=== PATIENT | female | born 1950 | race Caucasian/White ===

== ENCOUNTER 2016-10-08 12:33 | Outpatient (CLI) | payer MEDICARE, OTHER | END 2016-10-08 12:34 | disposition home or self-care (01) | DX: Z01.818 Encounter for other preprocedural examination (principal); M06.9 Rheumatoid arthritis, unspecified; M24.072 Loose body in left ankle ==

== ENCOUNTER 2016-10-15 08:00 | Outpatient (CLI) | payer MEDICARE, OTHER | END 2016-10-15 08:01 | disposition home or self-care (01) | DX: Z79.899 Other long term (current) drug therapy (principal) ==

== ENCOUNTER 2016-10-18 10:17 | Outpatient (CLI) | payer MEDICARE, OTHER | END 2016-10-18 10:18 | disposition home or self-care (01) | DX: Z01.818 Encounter for other preprocedural examination (principal); M06.9 Rheumatoid arthritis, unspecified ==

== ENCOUNTER 2016-11-20 12:52 | Outpatient (CLI) | payer MEDICARE, OTHER | END 2016-11-20 12:53 | disposition home or self-care (01) | DX: M05.79 Rheumatoid arthritis with rheumatoid factor of multiple sites without organ or systems involvement (principal) ==

== ENCOUNTER 2016-12-06 09:08 | Outpatient (CLI) | payer MEDICARE, OTHER | END 2016-12-06 09:09 | disposition home or self-care (01) | DX: Z79.899 Other long term (current) drug therapy (principal) ==

== ENCOUNTER 2017-02-10 07:16 | Outpatient (CLI) | payer MEDICARE, OTHER ==
[2017-02-10 12:45] LABS: HEMOGLOBIN A1C 0.44 g/dL
[2017-02-10 12:51] LABS: ALBUMIN/GLOBULIN RATIO 1.5 (1.0-2.2); BILIRUBIN,TOTAL 0.6 mg/dL (0.2-1.0); BUN - BLOOD UREA NITROGEN 17 mg/dL (6-20); CALCIUM 9.5 mg/dL (8.5-10.3); CARBON DIOXIDE - CO2 24 mmol/L (21-32); CHLORIDE 105 mmol/L (101-111); CHOL/HDL RATIO 3.2 (<4.4); CHOLESTEROL 171 mg/dL; CREATININE 0.9 mg/dL (0.4-1.0); GFR - MDRD 63 (>89); GLUCOSE 111 mg/dL (70-100); HDL CHOLESTEROL 53 mg/dL; LDL/HDL RATIO 1.7 (<4.4); POTASSIUM 4.1 mmol/L (3.5-5.0); SODIUM 139 mmol/L (135-145); TOTAL PROTEIN 7.6 g/dL (6.7-8.2); TRIGLYCERIDES 133 mg/dL; VLDL CHOLESTEROL 27 mg/dL
== END 2017-02-10 07:17 | disposition home or self-care (01) ==
LOC: LAB.WCP 07:16
PROVIDERS: ATTEND Family Medicine
DX: E78.5 Hyperlipidemia, unspecified (principal); E11.9 Type 2 diabetes mellitus without complications; I10 Essential (primary) hypertension
CPT/HCPCS: 36415; 80053; 80061; 83036

== ENCOUNTER 2017-08-26 14:40 | Outpatient (CLI) | payer MEDICARE, OTHER ==
[2017-08-26 12:35] LABS: BASOPHILS % (AUTO) 0.5 %; EOSINOPHILS # (AUTO) 0.2 10^3/uL (0.0-0.7); EOSINOPHILS % (AUTO) 2.6 %; HCT - HEMATOCRIT 37.1 % (37.0-47.0); HGB - HEMOGLOBIN 12.6 g/dL (12.0-16.0); LYMPHOCYTES # (AUTO) 1.7 10^3/uL (1.5-3.5); LYMPHOCYTES % (AUTO) 24.2 %; MEAN CORPUSCULAR HEMOGLOBIN 31.1 pg (27.0-31.0); MEAN CORPUSCULAR HGB CONC 33.9 g/dL (32.0-36.0); MEAN CORPUSCULAR VOLUME 91.6 fL (81.0-99.0); MEAN PLATELET VOLUME 7.6 fL (7.9-10.8); MONOCYTES # (AUTO) 0.6 10^3/uL (0.0-1.0); MONOCYTES % (AUTO) 8.8 %; NEUTROPHILS # (AUTO) 4.5 10^3/uL (1.5-6.6); NEUTROPHILS % (AUTO) 63.9 %; RED BLOOD COUNT 4.05 10^6/uL (4.20-5.40); RED CELL DISTRIBUTION WIDTH 14.9 % (12.0-15.0); UNCORRECTED WHITE BLOOD COUNT 7.1 x10^3/uL; WHITE BLOOD COUNT 7.1 x10^3/uL (4.8-10.8)
[2017-08-26 12:57] LABS: HEMOGLOBIN A1C 0.51 g/dL
[2017-08-26 13:02] LABS: ALBUMIN/GLOBULIN RATIO 1.3 (1.0-2.2); BILIRUBIN,TOTAL 0.6 mg/dL (0.2-1.0); BUN - BLOOD UREA NITROGEN 19 mg/dL (6-20); CALCIUM 9.2 mg/dL (8.5-10.3); CARBON DIOXIDE - CO2 22 mmol/L (21-32); CHLORIDE 109 mmol/L (101-111); CHOL/HDL RATIO 3.4 (<4.4); CHOLESTEROL 185 mg/dL; CREATININE 0.9 mg/dL (0.4-1.0); GFR - MDRD 63 (>89); GLUCOSE 98 mg/dL (70-100); HDL CHOLESTEROL 55 mg/dL; LDL/HDL RATIO 1.9 (<4.4); POTASSIUM 3.9 mmol/L (3.5-5.0); SODIUM 137 mmol/L (135-145); TOTAL PROTEIN 7.4 g/dL (6.7-8.2); TRIGLYCERIDES 135 mg/dL; VLDL CHOLESTEROL 27 mg/dL
== END 2017-08-26 14:41 | disposition home or self-care (01) ==
LOC: LAB.WCP 14:40
PROVIDERS: ATTEND Family Medicine
DX: I10 Essential (primary) hypertension (principal); E11.9 Type 2 diabetes mellitus without complications; E78.5 Hyperlipidemia, unspecified; L40.50 Arthropathic psoriasis, unspecified
CPT/HCPCS: 36415; 80053; 80061; 83036; 84443; 85025; 85651

== ENCOUNTER 2017-11-05 10:35 | Outpatient (CLI) | payer MEDICARE, OTHER ==
[2017-11-05 19:15] LABS: BASOPHILS # (AUTO) 0.1 10^3/uL (0.0-0.1); BASOPHILS % (AUTO) 0.8 %; EOSINOPHILS # (AUTO) 0.2 10^3/uL (0.0-0.7); EOSINOPHILS % (AUTO) 2.4 %; HGB - HEMOGLOBIN 12.8 g/dL (12.0-16.0); LYMPHOCYTES # (AUTO) 1.7 10^3/uL (1.5-3.5); LYMPHOCYTES % (AUTO) 19.1 %; MEAN CORPUSCULAR HEMOGLOBIN 31.6 pg (27.0-31.0); MEAN CORPUSCULAR HGB CONC 33.5 g/dL (32.0-36.0); MEAN CORPUSCULAR VOLUME 94.3 fL (81.0-99.0); MEAN PLATELET VOLUME 7.5 fL (7.9-10.8); MONOCYTES # (AUTO) 0.8 10^3/uL (0.0-1.0); MONOCYTES % (AUTO) 8.9 %; NEUTROPHILS % (AUTO) 68.8 %; PLT - PLATELET COUNT 315 10^3/uL (130-450); RED BLOOD COUNT 4.06 10^6/uL (4.20-5.40); RED CELL DISTRIBUTION WIDTH 14.8 % (12.0-15.0); WHITE BLOOD COUNT 8.8 x10^3/uL (4.8-10.8)
[2017-11-05 19:25] LABS: ALBUMIN 4.2 g/dL (3.2-5.5); ALBUMIN/GLOBULIN RATIO 1.2 (1.0-2.2); BILIRUBIN,TOTAL 0.2 mg/dL (0.2-1.0); CALCIUM 9.5 mg/dL (8.5-10.3); CREATININE 0.9 mg/dL (0.4-1.0); TOTAL PROTEIN 7.8 g/dL (6.7-8.2)
== END 2017-11-05 10:36 | disposition home or self-care (01) ==
LOC: LAB.WCP 10:35
PROVIDERS: ATTEND Surgery
DX: M05.79 Rheumatoid arthritis with rheumatoid factor of multiple sites without organ or systems involvement (principal)
CPT/HCPCS: 36415; 80053; 85025; 85651

== ENCOUNTER 2018-02-25 08:00 | Outpatient (CLI) | payer MEDICARE, OTHER ==
[2018-02-25 18:55] LABS: BASOPHILS # (AUTO) 0.1 10^3/uL (0.0-0.1); BASOPHILS % (AUTO) 0.8 %; EOSINOPHILS # (AUTO) 0.3 10^3/uL (0.0-0.7); EOSINOPHILS % (AUTO) 2.9 %; HGB - HEMOGLOBIN 12.8 g/dL (12.0-16.0); LYMPHOCYTES # (AUTO) 1.7 10^3/uL (1.5-3.5); LYMPHOCYTES % (AUTO) 16.3 %; MEAN CORPUSCULAR HEMOGLOBIN 30.4 pg (27.0-31.0); MEAN CORPUSCULAR HGB CONC 32.9 g/dL (32.0-36.0); MEAN CORPUSCULAR VOLUME 92.3 fL (81.0-99.0); MEAN PLATELET VOLUME 7.9 fL (7.9-10.8); MONOCYTES % (AUTO) 9.9 %; NEUTROPHILS # (AUTO) 7.3 10^3/uL (1.5-6.6); NEUTROPHILS % (AUTO) 70.1 %; PLT - PLATELET COUNT 337 10^3/uL (130-450); RED BLOOD COUNT 4.22 10^6/uL (4.20-5.40); RED CELL DISTRIBUTION WIDTH 14.6 % (12.0-15.0); WHITE BLOOD COUNT 10.5 x10^3/uL (4.8-10.8)
[2018-02-25 19:27] LABS: ALBUMIN 4.2 g/dL (3.2-5.5); ALBUMIN/GLOBULIN RATIO 1.1 (1.0-2.2); BILIRUBIN,TOTAL 0.6 mg/dL (0.2-1.0); CALCIUM 9.6 mg/dL (8.5-10.3); CREATININE 0.9 mg/dL (0.4-1.0); TOTAL PROTEIN 7.9 g/dL (6.7-8.2)
== END 2018-02-25 08:01 | disposition home or self-care (01) ==
LOC: LAB.WCP 08:00
PROVIDERS: ATTEND Internal Medicine Rheumatology
DX: M05.79 Rheumatoid arthritis with rheumatoid factor of multiple sites without organ or systems involvement (principal)
CPT/HCPCS: 36415; 80053; 85025

== ENCOUNTER 2018-03-04 10:08 | Outpatient (CLI) | payer MEDICARE, MEDICAID ==
--- NOTE | 2018-03-06 10:45 | DEXA Report ---
DEXA SCAN: 03/04/2018 CLINICAL INDICATION: Rheumatoid arthritis, diabetes, postmenopausal. Prior history of osteoporosis. TECHNIQUE: Dual energy x-ray absorptiometry (DXA) was performed on a [employer] system. Regions measured are the AP spine, femoral neck, and, if needed, forearm. COMPARISON: None. In accordance with the International Society for Clinical Densitometry (ISCD) guidelines, data from previous exams may be reanalyzed using current recommendations and techniques. This is done to allow a more accurate basis for comparison with the current study. FINDINGS: The data for the lumbar spine is as follows: REGION BMD (g/cm/cm) T-SCORE Z-SCORE L1 0.870 -2.2 -1.5 L2 0.946 -2.1 -1.4 L3 1.056 -1.2 -0.5 L4 1.149 -0.4 0.3 TOTAL 1.016 -1.4 -0.7 NOTE: All evaluable vertebrae are used for classification. The data for the hip is as follows: REGION BMD (g/cm/cm) T-SCORE Z-SCORE Neck 0.802 -1.7 -0.8 TOTAL 0.867 -1.1 -0.5 NOTE: The femoral neck or total proximal femur, whichever is lowest, is used for classification. IMPRESSION: THE WORLD HEALTH ORGANIZATION CLASSIFICATION BASED ON THE INTERNATIONAL REFERENCE STANDARD IS OSTEOPENIA (REFERENCE LEFT FEMORAL NECK). THE FRACTURE RISK IS INCREASED. RECOMMENDATION: Patients with diagnosis of osteoporosis or osteopenia should have regular bone mineral density assessment. For those eligible for Medicare, routine testing is allowed once every 2 years. Testing frequency can be increased for patients who have rapidly progressing disease or for those who are receiving medical therapy to restore bone mass. COMMENT: World Health Organization (WHO) definitions for osteoporosis and osteopenia: NORMAL BMD: T-score at 1.0 or higher, fracture risk is low. OSTEOPENIA BMD: T-score between 1.0 and -2.5, fracture risk is increased. OSTEOPOROSIS BMD: T-score at 2.5 or lower, fracture risk high. National Osteoporosis Foundation recommends: 1. Obtain adequate dietary calcium (at least 1200 mg per day) and vitamin D (400 -800 international units per day). 2. Participate, as appropriate, in regular weightbearing and muscle- strengthening exercise. 3. Avoid tobacco use and reduce alcohol and caffeine intake. 4. For more detailed information see the website at www.NOF.org. MTDD
== END 2018-03-04 10:09 | disposition home or self-care (01) ==
LOC: DI 10:08
PROVIDERS: ATTEND Internal Medicine Rheumatology
DX: M85.88 Other specified disorders of bone density and structure, other site (principal)
CPT/HCPCS: 77080

== ENCOUNTER 2018-04-03 07:10 | Outpatient (CLI) | payer MEDICARE, MEDICAID ==
[2018-04-03 13:03] LABS: ALBUMIN 3.9 g/dL (3.2-5.5); ALKALINE PHOSPHATASE 56 IU/L (42-121); ALT ALANINE AMINOTRANSFERASE 25 IU/L (10-60); AST ASPARTATE AMINOTRANSFERASE 22 IU/L (10-42); BILIRUBIN,TOTAL 0.4 mg/dL (0.2-1.0); BUN - BLOOD UREA NITROGEN 28 mg/dL (6-20); CALCIUM 9.7 mg/dL (8.5-10.3); CARBON DIOXIDE - CO2 23 mmol/L (21-32); CHLORIDE 106 mmol/L (101-111); CHOL/HDL RATIO 2.7 (<4.4); CHOLESTEROL 157 mg/dL; CREATININE 0.8 mg/dL (0.4-1.0); GFR - MDRD 72 (>89); GLUCOSE 126 mg/dL (70-100); HDL CHOLESTEROL 58 mg/dL; LDL CHOLESTEROL,CALCULATED 74 mg/dL; LDL/HDL RATIO 1.3 (<4.4); SODIUM 137 mmol/L (135-145); TOTAL PROTEIN 7.9 g/dL (6.7-8.2); VLDL CHOLESTEROL 25 mg/dL
[2018-04-03 13:05] LABS: HB2 TOTAL 13.4 g/dL; HEMOGLOBIN A1C 0.59 g/dL; HEMOGLOBIN A1C % 6.2 % (4.6-6.2)
== END 2018-04-03 07:11 ==
LOC: LAB.WCP 07:10
PROVIDERS: ATTEND Family Medicine
DX: E11.9 Type 2 diabetes mellitus without complications (principal); E87.1 Hypo-osmolality and hyponatremia; I10 Essential (primary) hypertension
CPT/HCPCS: 36415; 80053; 80061; 83036; 83721

== ENCOUNTER 2018-04-09 11:09 | Outpatient (CLI) | payer MEDICARE, MEDICAID | END 2018-04-09 11:10 | disposition home or self-care (01) | LOC: DI 11:09 | PROVIDERS: ATTEND Family Medicine | DX: R01.1 Cardiac murmur, unspecified (principal); I51.7 Cardiomegaly; I07.1 Rheumatic tricuspid insufficiency | CPT/HCPCS: 93306 ==

== ENCOUNTER 2018-06-17 11:10 | Outpatient (CLI) | payer MEDICARE, MEDICAID ==
[2018-06-17 19:04] LABS: BASOPHILS % (AUTO) 0.5 %; EOSINOPHILS # (AUTO) 0.1 10^3/uL (0.0-0.7); EOSINOPHILS % (AUTO) 1.8 %; HGB - HEMOGLOBIN 13.3 g/dL (12.0-16.0); LYMPHOCYTES # (AUTO) 1.1 10^3/uL (1.5-3.5); LYMPHOCYTES % (AUTO) 16.3 %; MEAN CORPUSCULAR HEMOGLOBIN 31.1 pg (27.0-31.0); MEAN CORPUSCULAR HGB CONC 33.2 g/dL (32.0-36.0); MEAN CORPUSCULAR VOLUME 93.6 fL (81.0-99.0); MEAN PLATELET VOLUME 8.2 fL (7.9-10.8); MONOCYTES # (AUTO) 0.5 10^3/uL (0.0-1.0); MONOCYTES % (AUTO) 7.8 %; NEUTROPHILS # (AUTO) 5.1 10^3/uL (1.5-6.6); NEUTROPHILS % (AUTO) 73.6 %; PLT - PLATELET COUNT 318 10^3/uL (130-450); RED BLOOD COUNT 4.28 10^6/uL (4.20-5.40); RED CELL DISTRIBUTION WIDTH 15.7 % (12.0-15.0)
== END 2018-06-17 11:11 | disposition home or self-care (01) ==
LOC: LAB.WCP 11:10
PROVIDERS: ATTEND Internal Medicine Rheumatology
DX: M05.79 Rheumatoid arthritis with rheumatoid factor of multiple sites without organ or systems involvement (principal)
CPT/HCPCS: 36415; 80053; 85025; 85651

== ENCOUNTER 2018-10-20 07:35 | Outpatient (CLI) | payer MEDICARE, MEDICAID ==
[2018-10-20 12:40] LABS: BASOPHILS # (AUTO) 0.1 10^3/uL (0.0-0.1); BASOPHILS % (AUTO) 0.9 %; EOSINOPHILS # (AUTO) 0.2 10^3/uL (0.0-0.7); EOSINOPHILS % (AUTO) 2.3 %; HGB - HEMOGLOBIN 13.5 g/dL (12.0-16.0); LYMPHOCYTES # (AUTO) 1.4 10^3/uL (1.5-3.5); LYMPHOCYTES % (AUTO) 16.9 %; MEAN CORPUSCULAR HEMOGLOBIN 31.1 pg (27.0-31.0); MEAN CORPUSCULAR HGB CONC 33.9 g/dL (32.0-36.0); MEAN CORPUSCULAR VOLUME 91.8 fL (81.0-99.0); MEAN PLATELET VOLUME 8.2 fL (7.9-10.8); MONOCYTES # (AUTO) 0.6 10^3/uL (0.0-1.0); MONOCYTES % (AUTO) 7.8 %; NEUTROPHILS # (AUTO) 5.8 10^3/uL (1.5-6.6); NEUTROPHILS % (AUTO) 72.1 %; PLT - PLATELET COUNT 322 10^3/uL (130-450); RED BLOOD COUNT 4.33 10^6/uL (4.20-5.40)
[2018-10-20 13:05] LABS: ALBUMIN 4.1 g/dL (3.2-5.5); ALBUMIN/GLOBULIN RATIO 1.1 (1.0-2.2); BILIRUBIN,TOTAL 0.8 mg/dL (0.2-1.0); CALCIUM 9.4 mg/dL (8.5-10.3); CREATININE 0.9 mg/dL (0.4-1.0); TOTAL PROTEIN 7.9 g/dL (6.7-8.2)
[2018-10-20 13:10] LABS: HB2 TOTAL 14.4 g/dL; HEMOGLOBIN A1C 0.65 g/dL; HEMOGLOBIN A1C % 6.3 % (4.6-6.2)
== END 2018-10-20 23:59 | disposition home or self-care (01) ==
LOC: LAB.WCP 07:35
PROVIDERS: ATTEND Physician Assistant Medical
DX: E87.1 Hypo-osmolality and hyponatremia (principal); E11.9 Type 2 diabetes mellitus without complications; R07.89 Other chest pain; D64.9 Anemia, unspecified; E78.5 Hyperlipidemia, unspecified; I10 Essential (primary) hypertension
CPT/HCPCS: 36415; 80053; 82043; 83036; 84443; 85025

== ENCOUNTER 2018-12-23 21:51 | Outpatient (CLI) | payer MEDICARE, MEDICAID | END 2018-12-23 21:52 | disposition critical access hospital (66) | LOC: EMS 21:51 | PROVIDERS: ATTEND Surgery | DX: R06.02 Shortness of breath (principal); R25.1 Tremor, unspecified; R44.8 Other symptoms and signs involving general sensations and perceptions; R30.0 Dysuria | CPT/HCPCS: A0425; A0429 ==

== ENCOUNTER 2018-12-23 22:09 | Inpatient (IN) | payer MEDICARE, MEDICAID ==
[2018-12-23] MEDS ORDERED: ALBUTEROL NEB 2.5 MG/3 ML INH STA (22:39)
--- NOTE | 2018-12-23 23:00 | XRAY Report ---
Reason: cough Procedure Date: 12/23/2018 Accession Number: [id number] / [id number] Procedure: XR - Chest 1 View X-Ray CPT Code: 06392 FULL RESULT: EXAM: CHEST RADIOGRAPHY EXAM DATE: 12/23/2018 10:40 PM. CLINICAL HISTORY: Cough. COMPARISON: CHEST 2 VIEW PA/LAT 09/19/2016 11:21 AM. TECHNIQUE: 1 view. FINDINGS: Lungs/Pleura: Lungs arms are low which crowds the interstitium. No definite infiltrates. No pleural effusions. Mediastinum: Within exam limitations, the cardiomediastinal contour is normal. Other: Degenerative changes at the right glenohumeral joint. IMPRESSION: 1. Low level of inspiration. No acute infiltrates. RADIA
[2018-12-23 23:05] LABS: BASOPHILS # (AUTO) 0.1 10^3/uL (0.0-0.1); BASOPHILS % (AUTO) 0.5 %; EOSINOPHILS % (AUTO) 0.3 %; HGB - HEMOGLOBIN 12.1 g/dL (12.0-16.0); LYMPHOCYTES # (AUTO) 0.4 10^3/uL (1.5-3.5); LYMPHOCYTES % (AUTO) 2.9 %; MEAN CORPUSCULAR HEMOGLOBIN 29.8 pg (27.0-31.0); MEAN CORPUSCULAR HGB CONC 33.1 g/dL (32.0-36.0); MEAN CORPUSCULAR VOLUME 90.2 fL (81.0-99.0); MEAN PLATELET VOLUME 7.2 fL (7.9-10.8); MONOCYTES # (AUTO) 0.4 10^3/uL (0.0-1.0); MONOCYTES % (AUTO) 2.5 %; NEUTROPHILS # (AUTO) 14.1 10^3/uL (1.5-6.6); NEUTROPHILS % (AUTO) 93.8 %; PLT - PLATELET COUNT 337 10^3/uL (130-450); RED BLOOD COUNT 4.06 10^6/uL (4.20-5.40); RED CELL DISTRIBUTION WIDTH 14.4 % (12.0-15.0); WHITE BLOOD COUNT 15.1 x10^3/uL (4.8-10.8)
--- NOTE | 2018-12-23 23:14 | ED Physician Documentation ---
History of Present Illness - Stated complaint Stated Complaint: SOA, CHILLS, COUGH, WEAKNESS - Chief complaint Chief Complaint: Resp - History obtained from History obtained from: Patient, Family, EMS - History of Present Illness Timing: Today Pain level max: 0 Pain level now: 0 Improved by: Rest, oxygen Worsened by: Exertion - Additonal information Additional information: 68-year-old female presents to the emergency department stating that she felt short of breath today while making dinner. This is continued. She denies any chest pain, palpitations, leg pain. No recent surgery or travel. She also complains of dysuria. No history of COPD. No cardiac history. Review of Systems Ten Systems: 10 systems reviewed and negative Constitutional: reports: Fever. denies: Chills Nose: denies: Rhinorrhea / runny nose, Congestion Cardiac: denies: Chest pain / pressure, Calf pain Respiratory: reports: Cough (Mild, dry). denies: Hemoptysis, Wheezing GI: denies: Abdominal Pain, Nausea, Vomiting, Diarrhea Skin: denies: Rash Musculoskeletal: denies: Neck pain, Back pain Neurologic: denies: Focal weakness, Numbness, Headache PD PAST MEDICAL HISTORY - Past Medical History Past Medical History: No - Past Surgical History Past Surgical History: No - Allergies Allergies/Adverse Reactions: Allergies Allergy/AdvReac Type Severity Reaction Status Date / Time No Known Drug Allergies Allergy Verified 12/23/18 22:19 - Living Situation Living Situation: reports: With family Living Arrangement: reports: At home - Social History Does the pt have substance abuse?: No - Family History Family history: reports: Non contributory PD ED PE NORMAL - Vitals Vital signs reviewed: Yes - General General: Alert and oriented X 3, Well developed/nourished, Other (Mild respiratory distress) - HEENT HEENT: PERRL, Moist mucous membranes, Pharynx benign - Neck Neck: Supple, no meningeal sign - Cardiac Cardiac: Strong equal pulses, Other (Tachycardic) - Respiratory Respiratory: No respiratory distress, Clear bilaterally - Abdomen Abdomen: Soft, Non tender, Non distended - Derm Derm: Warm and dry, No rash - Extremities Extremities: No calf tenderness / cord - Neuro Neuro: Alert and oriented X 3 - Psych Psych: Normal mood, Normal affect Results - Vitals Vitals: Vital Signs - 24 hr 12/23/18 12/23/1819 22:14 22:28 23:04 Temperature 38.7 C H Heart Rate 113 H 111 H Respiratory 30 H 28 H 20 Rate Blood Pressure 122/112 H O2 Saturation 85 L 12/23/18 12/24/18 12/24/18 23:42 00:22 00:45 Temperature 38 C H Heart Rate 110 H 95 115 H Respiratory 25 H 24 29 H Rate Blood Pressure 98/61 102/45 L O2 Saturation 95 95 89 L 12/24/18 12/24/18 12/24/18 00:51 01:05 01:15 Temperature 37.1 C Heart Rate 106 H 88 Respiratory 22 24 Rate Blood Pressure 103/59 L 100/55 L O2 Saturation 96 94 88 L 12/24/18 12/24/18 12/24/18 01:30 01:38 02:00 Temperature Heart Rate 86 80 90 Respiratory 22 22 20 Rate Blood Pressure 104/48 L 103/41 L O2 Saturation 94 96 12/24/18 02:30 Temperature Heart Rate 88 Respiratory 20 Rate Blood Pressure 86/45 L O2 Saturation 96 Oxygen O2 Source Nasal cannula Oxygen Flow Rate 4 - Labs Labs: Laboratory Tests 12/23/18 12/23/18 12/23/18 22:35 22:58 22:58 WBC 15.1 H RBC 4.06 L Hgb 12.1 Hct 36.6 L MCV 90.2 MCH 29.8 MCHC 33.1 RDW 14.4 Plt Count 337 MPV 7.2 L Neut # (Auto) 14.1 H Lymph # (Auto) 0.4 L [place] # (Auto) 0.4 Eos # (Auto) 0.0 Baso # (Auto) 0.1 Absolute Nucleated RBC 0.00 Nucleated RBC % 0.0 Sodium 132 L Potassium 4.0 Chloride 101 Carbon Dioxide 21 Anion Gap 10.0 BUN 18 Creatinine 1.2 H Estimated GFR (MDRD) 45 L Glucose 185 H Lactic Acid Calcium 8.6 Total Bilirubin 0.7 AST 27 ALT 23 Alkaline Phosphatase 71 Total Protein 7.1 Albumin 3.9 Globulin 3.2 Albumin/Globulin Ratio 1.2 Lipase 42 Urine Color Urine Clarity Urine pH Ur Specific [place] Urine Protein Urine Glucose (UA) Urine Ketones Urine Occult Blood Urine Nitrite Urine Bilirubin Urine Urobilinogen Ur Leukocyte Esterase Urine RBC Urine WBC Ur Squamous Epith Cells Urine Bacteria Ur Microscopic Review Urine Culture Comments Influenza A (Rapid) Negative Influenza B (Rapid) Negative 12/23/18 12/23/18 22:58 23:30 WBC RBC Hgb Hct MCV MCH MCHC RDW Plt Count MPV Neut # (Auto) Lymph # (Auto) [place] # (Auto) Eos # (Auto) Baso # (Auto) Absolute Nucleated RBC Nucleated RBC % Sodium Potassium Chloride Carbon Dioxide Anion Gap BUN Creatinine Estimated GFR (MDRD) Glucose Lactic Acid 1.8 Calcium Total Bilirubin AST ALT Alkaline Phosphatase Total Protein Albumin Globulin Albumin/Globulin Ratio Lipase Urine Color YELLOW Urine Clarity HAZY Urine pH 6.0 Ur Specific [place] 1.020 Urine Protein 100 H Urine Glucose (UA) NEGATIVE Urine Ketones NEGATIVE Urine Occult Blood MODERATE H Urine Nitrite POSITIVE H Urine Bilirubin NEGATIVE Urine Urobilinogen 0.2 (NORMAL) Ur Leukocyte Esterase SMALL H Urine RBC 0-5 Urine WBC >25 H Ur Squamous Epith Cells MOD Squamous H Urine Bacteria Few Ur Microscopic Review INDICATED Urine Culture Comments NOT INDICATED Influenza A (Rapid) Influenza B (Rapid) - Rads (name of study) cxr Radiology: Prelim report reviewed, EMP read contemporaneously, See rad report (No acute infiltrates) ctpa Radiology: Prelim report reviewed, EMP read contemporaneously, See rad report (No evidence for pulmonary emboli. Atherosclerotic vascular calcifications of the coronary arteries) PD MEDICAL DECISION MAKING - ED course Complexity details: reviewed results, re-evaluated patient, considered differential, d/w patient, d/w family, d/w middleware consultant ED course: 68-year-old female presents to the emergency department with dyspnea today.68-year-old female presents to the emergency department with dyspnea today. She also was febrile. Hypoxic, tachycardic. Concern for PE. No PE on CT pulmonary angiogram. She also has a UTI will treat with antibiotics. She remained hypoxic, though improved mildly with nebulizer treatment. Will admit for further care. Discussed the case with the hospitalist who accepts This document was made in part using voice recognition software. While efforts are made to proofread this document, sound alike and grammatical errors may occur. Departure - Departure Disposition: 67 [facility] DC/Xfer Clinical Impression: Hypoxia UTI (urinary tract infection) Qualifiers: Urinary tract infection type: acute cystitis Hematuria presence: without hematuria Qualified Code(s): N30.00 - Acute cystitis without hematuria Condition: Stable Discharge Date/Time: 12/24/18 03:20
[2018-12-23] MEDS ORDERED: LORazepam 2 MG/ML VIAL IVP STA (23:15)
[2018-12-23 23:16] LABS: ALBUMIN 3.9 g/dL (3.2-5.5); ALBUMIN/GLOBULIN RATIO 1.2 (1.0-2.2); BILIRUBIN,TOTAL 0.7 mg/dL (0.2-1.0); CALCIUM 8.6 mg/dL (8.5-10.3); CREATININE 1.2 mg/dL (0.4-1.0); TOTAL PROTEIN 7.1 g/dL (6.7-8.2)
[2018-12-23] MEDS ORDERED: IOPAMIDOL-300 100 ML VIAL ONE (23:27)
[2018-12-23 23:50] LABS: BILIRUBIN,URINE NEGATIVE (NEGATIVE); GLUCOSE, URINE (UA) NEGATIVE (NEGATIVE); KETONES,URINE (UA) NEGATIVE (NEGATIVE); LEUKOCYTE ESTERASE, URINE SMALL (NEGATIVE); NITRITE,URINE POSITIVE (NEGATIVE); OCCULT BLOOD,URINE MODERATE (NEGATIVE); PROTEIN,URINE 100 mg/dL (NEGATIVE); UROBILINOGEN,URINE 0.2 (NORMAL) E.U./dL (NORMAL)
[2018-12-23 23:55] LABS: CLARITY,URINE HAZY (CLEAR)
[2018-12-24] MEDS: IOPAMIDOL-300 100 ML VIAL IVP ONE (00:03)
[2018-12-24 00:13] LABS: BACTERIA,URINE Few /HPF (None Seen); RBC,URINE 0-5 /HPF (0-5); SQUAMOUS EPITHELIAL CELL,UR MOD Squamous (<= Few)
--- NOTE | 2018-12-24 00:17 | CT Report ---
Reason: dyspnea, hypoxia, poss PE? Procedure Date: 12/24/2018 Accession Number: [id number] / [id number] Procedure: CT - ANGIO CHEST W/WO CPT Code: FULL RESULT: EXAM: CT ANGIOGRAM CHEST EXAM DATE: 12/24/2018 12:06 AM. CLINICAL HISTORY: Dyspnea, hypoxia, poss PE?. COMPARISON: None. TECHNIQUE: Routine helical imaging was performed through the chest in the pulmonary arterial phase. IV Contrast: ISOVUE 300 80mL. Reconstructions: Coronal 3-D MIP reconstructions.Sagittal and coronal. In accordance with CT protocol optimization, one or more of the following dose reduction techniques were utilized for this exam: automated exposure control, adjustment of mA and/or KV based on patient size, or use of iterative reconstructive technique. FINDINGS: Pulmonary Arteries: Diagnostic quality: Adequate through the segmental arteries. No evidence for acute or chronic pulmonary emboli. RV/LV is within normal limits. There is no interventricular septal bowing. There is no reflux of contrast material in the IVC. Lungs/Pleura: There are mild interstitial changes in the periphery of the lower lungs likely chronic. No pneumonic airspace infiltration. Mediastinum: The heart is borderline enlarged. There are atherosclerotic vascular calcifications of the coronary arteries. There is no evidence for aortic dissection. Thoracic Aorta: Unremarkable. Upper Abdomen: The adrenal glands are slightly hyperplastic. Other: None. IMPRESSION: 1. No evidence for pulmonary emboli. 2. Atherosclerotic vascular calcifications of the coronary arteries. RADIA
[2018-12-24] MEDS ORDERED: SODIUM CHLORIDE 0.9% 1,000 ML IV ONE ×3 (00:29→02:37)
[2018-12-24] MEDS ORDERED: cefTRIAXone 1 GM VIAL IVP STA (01:02)
[2018-12-24] MEDS ORDERED: methylPREDNISolone SUCCINATE 125 MG/2 ML VIAL IVP STA (01:26)
[2018-12-24] MEDS ORDERED: IPRATROPIUM/ALBUTEROL 3 ML NEB INH STA (01:26)
[2018-12-24] MEDS ORDERED: ACETAMINOPHEN 325 MG TABLET PO PRN (02:36)
[2018-12-24] MEDS ORDERED: SODIUM CHLORIDE 0.9% 1,000 ML IV SCH (03:00)
[2018-12-24] MEDS ORDERED: ASPIRIN 325 MG TABLET PO STA (04:01)
[2018-12-24] MEDS ORDERED: HEPARIN 5,000 UNIT/ML VIAL IVP ONE (04:05)
--- NOTE | 2018-12-24 04:15 | HISTORY & PHYSICAL EXAMINATION ---
Chief Complaint - Chief Complaint Chief Complaint: acute dyspnea History of Present Illness - Admitted From [facility] - History Obtained From Records Reviewed: yes History obtained from: patient and family - History of Present Illness HPI Comment/Other: Patient is a 68 y/o female who presented to the ED with complain of acute onset dyspnea, cold and shaking uncontrollably. She was found to be hypoxic upon presentation and placed on oxygen. She does not use oxygen at home. When she ambulates, her O2Sats drops to 88% even on 4L Nasal canula. She denies chest pain. She reports burning with urination. She denied abd pain,nausea, vomiting, fever or chills. The rest of her history was unremarkable. Work up included a UA which was suggestive of a UTI. CT Angio of the thorax was negative for a PE however it showed atherosclerosis and calcifications of cardiac vessels. Further work up of the dyspnea and hypoxia after admission included a troponin which came back at 1.23. History - Past Medical History Cardiovascular: reports: Hypertension, High cholesterol Respiratory: reports: None Endocrine/Autoimmune: reports: Type 2 diabetes GI: reports: GERD : reports: Nocturia, Frequency Psych: reports: Anxiety, Claustrophobia Musculoskeletal: reports: Rheumatoid arthritis Derm: reports: None - Past Surgical History General: reports: Colonoscopy Ortho: reports: Knee replacement /CHE[employer] K[employer]: reports: Hysterectomy - Family & Social History Living arrangement: At home Living Situation: With family Meds/Allgy - Allergies Allergies/Adverse Reactions: Allergies Allergy/AdvReac Type Severity Reaction Status Date / Time No Known Drug Allergies Allergy Verified 12/23/18 22:19 Review of Systems - Constitutional Constitutional: reports: Chills, Other (?rigors). denies: Diaphoresis - Eyes Eyes: denies: Blurred vision, Vision loss, Dipolpia - Ears, Nose & Throat Ears, Nose & Throat: denies: Nasal pain, Nasal discharge, Sore throat, Hoarseness - Cardiovascular Cariovascular: reports: Exertional dyspnea. denies: Irregular heart rate, Chest pain, Edema, Lightheadedness, Syncope - Respiratory Respiratory: reports: SOB at rest, SOB with exertion. denies: Cough, Sputum production, Wheezing, Apnea, Stridor - Gastrointestinal Gastrointestinal: denies: Abdominal pain, Abdominal distention, Constipation, Diarrhea, Nausea, Vomiting - Genitourinary Genitourinary: reports: Dysuria. denies: Frequency, Urgency, Hematuria - Musculoskeletal Musculoskeletal: denies: Muscle pain, Back pain, Muscle aches, Stiffness - Integumentary Integumentary: denies: Rash, Pruritis, Lesions, Dryness - Neurological Neurological: denies: General weakness, Focal weakness, Headache, Dizziness, Numbness - Psychiatric Psychiatric: denies: Depression, Anxiety - Endocrine Endocrine: denies: Polyuria, Polydypsia - Hematologic/Lymphatic Hematologic/Lymphatic: denies: Anemia, Bruising, Petechiae Prior Level of Functionality: Independent of activities of daily living Lives with family Exam - Vital Signs Reviewed Vital Signs: Yes Vital Signs: Vital Signs x48h Temp Pulse Pulse Resp BP BP Pulse Ox 12/24/18 03:15 36.7 C 89 18 99/57 L 98 12/24/18 02:59 94/55 L 12/24/18 02:30 88 20 86/45 L 96 12/24/18 02:00 90 20 103/41 L 96 12/24/18 01:38 80 22 12/24/18 01:30 86 22 104/48 L 94 12/24/18 01:15 88 L 12/24/18 01:05 88 24 100/55 L 94 12/24/18 00:51 37.1 C 106 H 22 103/59 L 96 12/24/18 00:45 115 H 29 H 89 L 12/24/18 00:22 95 24 102/45 L 95 12/23/18 23:42 38 C H 110 H 25 H 98/61 95 12/23/18 23:04 111 H 20 12/23/18 22:28 28 H 12/23/18 22:14 38.7 C H 113 H 30 H 122/112 H 85 L - Physical Exam General Appearance: positive: No acute distress, Alert. negative: Lethargic Eyes Bilateral: positive: Normal inspection, PERRL, EOMI ENT: positive: ENT inspection nml, Pharynx nml, No signs of dehydration Neck: positive: Nml inspection, No JVD, Trachea midline Respiratory: positive: Chest non-tender, Breath sounds nml. negative: Wheezes, Rales, Rhonchi Cardiovascular: positive: No murmur, Tachycardia Back: positive: Nml inspection Skin: positive: Color nml, No rash, Warm, Dry Extremities: positive: Non-tender, Full ROM, Nml appearance Neurologic/Psychiatric: positive: Oriented x3 Sepsis Event Note (H) - Evaluation Current Stage of Sepsis: Sepsis Possible source of Sepsis: positive: Genitourinary - Sepsis Criteria Sepsis Criteria: Recorded Heart Rate greater than 90 bpm, WBC count greater than 12,000 or less than 4000 Conclusion/Plan - Problem List (1) NSTEMI (non-ST elevated myocardial infarction) Conclusion/Plan: Patient started on heparin gtt Trend trop X2 more. On telemetry Patient given a full dose aspirin IV hydration with Normal saline 2D echo pending. (2) Acute respiratory failure with hypoxia Conclusion/Plan: ?2/[address] Angio thorax negative for PE or Pneumonia Patient on heparin drip (3) Sepsis Conclusion/Plan: 2/2 UTI Patient started on rocephin Will continue. IV hydration with Normal Saline Tylenol for fever. Blood cultures pending (4) UTI (urinary tract infection) Conclusion/Plan: Rocephin ordered IV hydration. Tylenol for fever Qualifiers: Urinary tract infection type: acute cystitis Hematuria presence: without hematuria Qualified Code(s): N30.00 - Acute cystitis without hematuria (5) Diabetes mellitus type II, controlled Conclusion/Plan: Hold metformin Accu checks, SSI (6) Hypertension Conclusion/Plan: Currently hypotensive. Hydrating patient Will hold all antihypertensives (7) Hypercholesteremia Conclusion/Plan: Resume home medication (8) GERD (gastroesophageal reflux disease) Conclusion/Plan: Will order protonix (9) Rheumatoid arthritis Conclusion/Plan: Will hold sulfasalazine for now (10) Acute kidney injury Conclusion/Plan: on ?CKD Likely worsened by UTI?Sepsis Hydrating patient. Treating UTI. Will recheck - Lab Results Fish Bones: 12/23/18 22:58 12/23/18 22:58 Core Measures - Anticipated LOS I expect patient to be DC'd or transferred within 96 hours.: Yes - DVT/VTE - Prophylaxis VTE/DVT Device ordered at admit?: Yes VTE/DVT Prophylaxis med ordered at admit?: Yes - AMI - Statin at Admit Aspirin Prescribed on Admit: Yes
[2018-12-24] MEDS: HEPARIN 25000UNITS/500ML (D5W) 25,000 UNIT/500 ML BAG IV SCH (04:34)
[2018-12-24] MEDS ORDERED: HEPARIN 5,000 UNIT/ML VIAL ONE (04:39)
[2018-12-24] MEDS: SODIUM CHLORIDE 0.9% 1,000 ML IV SCH ×3 (05:06→18:45)
[2018-12-24 06:04] LABS: HGB - HEMOGLOBIN 11.5 g/dL (12.0-16.0); MEAN CORPUSCULAR HEMOGLOBIN 29.8 pg (27.0-31.0); MEAN CORPUSCULAR HGB CONC 32.4 g/dL (32.0-36.0); MEAN CORPUSCULAR VOLUME 91.9 fL (81.0-99.0); MEAN PLATELET VOLUME 7.6 fL (7.9-10.8); RED BLOOD COUNT 3.87 10^6/uL (4.20-5.40); RED CELL DISTRIBUTION WIDTH 15.3 % (12.0-15.0); WHITE BLOOD COUNT 15.8 x10^3/uL (4.8-10.8)
[2018-12-24 06:06] LABS: CALCIUM 8.4 mg/dL (8.5-10.3); CREATININE 1.1 mg/dL (0.4-1.0)
[2018-12-24 06:26] LABS: HB2 TOTAL 12.5 g/dL; HEMOGLOBIN A1C 0.61 g/dL; HEMOGLOBIN A1C % 6.6 % (4.6-6.2)
[2018-12-24] MEDS: PANTOPRAZOLE 40 MG VIAL IVP SCH (06:55)
[2018-12-24] MEDS: SODIUM CHLORIDE FLUSH 0.9% 10 ML SYRINGE IVP PRN (06:55)
[2018-12-24 07:09] LABS: BASOPHILS # (AUTO) 0.1 10^3/uL (0.0-0.1); BASOPHILS % (AUTO) 0.4 %; EOSINOPHILS % (AUTO) 0.1 %; HGB - HEMOGLOBIN 11.6 g/dL (12.0-16.0); LYMPHOCYTES # (AUTO) 0.5 10^3/uL (1.5-3.5); LYMPHOCYTES % (AUTO) 2.9 %; MEAN CORPUSCULAR HEMOGLOBIN 30.2 pg (27.0-31.0); MEAN CORPUSCULAR HGB CONC 32.7 g/dL (32.0-36.0); MEAN CORPUSCULAR VOLUME 92.4 fL (81.0-99.0); MEAN PLATELET VOLUME 7.7 fL (7.9-10.8); MONOCYTES # (AUTO) 0.2 10^3/uL (0.0-1.0); MONOCYTES % (AUTO) 1.2 %; NEUTROPHILS % (AUTO) 95.4 %; PLT - PLATELET COUNT 290 10^3/uL (130-450); RED BLOOD COUNT 3.84 10^6/uL (4.20-5.40); WHITE BLOOD COUNT 15.8 x10^3/uL (4.8-10.8)
[2018-12-24 07:44] LABS: ABG HCO3 20.4 mmol/L (22.0-26.0); ABG PCO2 36 mmHg (34-45); ABG PH 7.37 (7.35-7.45); ABG PO2 85 mmHg (80-100); ABG TCO2 21.5 MMOL/L (21.0-29.0)
[2018-12-24 07:45] LABS: ABG BASE EXCESS -4.3 mmol/L (-2.0-3.0); ABG OXYGEN SATURATION 95 % (94-98); ALLEN TEST POSITIVE
[2018-12-24] MEDS ORDERED: HEPARIN 5,000 UNIT/ML VIAL SUBQ SCH (09:00)
[2018-12-24] MEDS: INSULIN ASPART 300 UNIT/3 ML PEN SUBQ SCH ×4 (10:18→21:33)
[2018-12-24] MEDS: POLYETHYLENE GLYCOL 3350 17 GM PACKET PO SCH (10:18)
[2018-12-24] MEDS: SODIUM CHLORIDE FLUSH 0.9% 10 ML SYRINGE IVP SCH ×3 (10:19→23:41)
--- NOTE | 2018-12-24 13:08 | PROVIDER PROGRESS NOTE ---
Assessment/Plan - Problem List (1) Sepsis Assessment/Plan: HR and WBC have improved. UTI appears to be the source for a GN bacteremia. Continue Rocephin and await Cx results. (2) Gram-negative bacteremia Assessment/Plan: Continue Rocephin. Monitor CBC daily. (3) UTI (urinary tract infection) Assessment/Plan: Will obtain a CT of abd to evaluate for pyelonephritis vs cystitis. Continue antibiotics. (4) Elevated troponin Assessment/Plan: The troponin elevation is "flat" indicating this is not an acute NSTEMI, but from demand ischemia. She does have calcification seen on her CTA report, so there may be underlying significant CAD, however. She would need a cor angio, but not while she is bacteremic. Medical management for CAD will be started: B-cm, ASA, statin. Obtain an Echo. (5) Acute respiratory failure with hypoxia Assessment/Plan: Etiology unclear except for demand cardiac ischemia. Echo pending. (6) DM type 2 (diabetes mellitus, type 2) Assessment/Plan: Her A1c was 6.6 indicating good control. Continue carb controlled diet,ss Insulin coverage. - Current Meds Current Meds: Current Medications Generic Name Dose Route Start Last Admin Trade Name Freq PRN Reason Stop Dose Admin Heparin Sodium/Dextrose 25,000 unit in 500 mls @ 22.92 mls/hr 12/24/18 05:00 12/24/18 04:34 IV 12 unit/kg/hr .[id number] SUSANA 22.92 mls/hr Administration Protocol 12 UNIT/KG/HR Sodium Chloride 1,000 mls @ 150 mls/hr 12/24/18 04:48 12/24/18 11:17 Normal Saline 0.9% IV 150 mls/hr .[id number] SUSANA Administration Pantoprazole Sodium 40 mg 12/24/18 07:00 12/24/18 06:55 Protonix IVP 40 mg QDAC SUSANA Administration Polyethylene Glycol 17 gm 12/24/18 09:00 12/24/18 10:18 Miralax PO 17 gm DAILY SUSANA Administration Sodium Chloride 10 ml 12/24/18 02:36 12/24/18 06:55 Normal Saline Flush 0.9% IVP 10 ml PRN PRN Administration NEEDED PER PROVIDER ORDERS Sodium Chloride 10 ml 12/24/18 09:00 12/24/18 10:19 Normal Saline Flush 0.9% IVP Not Given 0100,0900,1700 SUSANA - Lab Result Fish Bone Diagrams: 12/24/18 13:00 12/24/18 05:10 - EKG Results EKG Interpreted Independently: Yes EKG Comparison: No prior EKG EKG Findings: NSR, borderline early R/S transition and Q wave in lead iii only. - Additional Planning My Orders: My Active Orders 12/24/18 16:40 Anti Xa [FACTOR XA] [COAG] Timed 12/24/18 17:00 Insulin Aspart [NovoLOG] 1 - 9 unit SUBQ 0800,1200,1700,2100 Subjective - Subjective Patient Reports: Feeling Better, Resting Comfortably Objective Vital Signs: Vital Signs - 24 hr 12/23/18 12/23/18 12/23/18 22:14 22:28 23:04 Temperature 38.7 C H Heart Rate 113 H 111 H Heart Rate [ Brachial] Respiratory 30 H 28 H 20 Rate Blood Pressure 122/112 H Blood Pressure [Left Brachial artery] O2 Saturation 85 L 12/23/18 12/24/18 12/24/18 23:42 00:22 00:45 Temperature 38 C H Heart Rate 110 H 95 115 H Heart Rate [ Brachial] Respiratory 25 H 24 29 H Rate Blood Pressure 98/61 102/45 L Blood Pressure [Left Brachial artery] O2 Saturation 95 95 89 L 12/24/18 12/24/18 12/24/18 00:51 01:05 01:15 Temperature 37.1 C Heart Rate 106 H 88 Heart Rate [ Brachial] Respiratory 22 24 Rate Blood Pressure 103/59 L 100/55 L Blood Pressure [Left Brachial artery] O2 Saturation 96 94 88 L 12/24/18 12/24/18 12/24/18 01:30 01:38 02:00 Temperature Heart Rate 86 80 90 Heart Rate [ Brachial] Respiratory 22 22 20 Rate Blood Pressure 104/48 L 103/41 L Blood Pressure [Left Brachial artery] O2 Saturation 94 96 12/24/18 12/24/18 12/24/18 02:30 02:59 03:15 Temperature 36.7 C Heart Rate 88 Heart Rate [ 89 Brachial] Respiratory 20 18 Rate Blood Pressure 86/45 L 94/55 L Blood Pressure 99/57 L [Left Brachial artery] O2 Saturation 96 98 12/24/18 08:00 Temperature 36.6 C Heart Rate Heart Rate [ 74 Brachial] Respiratory 20 Rate Blood Pressure Blood Pressure 104/72 [Left Brachial artery] O2 Saturation 98 Oxygen O2 Source Nasal cannula Oxygen Flow Rate 4 I&O (Last 24 Hrs): Intake and Output Totals x24h 12/22/18 12/23/18 12/24/18 23:59 23:59 23:59 Intake Total 3485 Output Total 1675 Balance 1810 General: Alert, Oriented x3 HEENT: Mucous membr. moist/pink Neuro: Non Focal Cardiovascular: Regular rate Respiratory: No respiratory distress Abdomen: Soft Extremities: No edema - Results Results: Laboratory Results WBC 15.8 x10^3/uL (4.8-10.8) H 12/24/18 05:10 RBC 3.84 10^6/uL (4.20-5.40) L 12/24/18 05:10 Hgb 11.6 g/dL (12.0-16.0) L 12/24/18 05:10 Hct 35.5 % (37.0-47.0) L 12/24/18 05:10 MCV 92.4 fL (81.0-99.0) 12/24/18 05:10 MCH 30.2 pg (27.0-31.0) 12/24/18 05:10 MCHC 32.7 g/dL (32.0-36.0) 12/24/18 05:10 RDW 15.0 % (12.0-15.0) 12/24/18 05:10 Plt Count 290 10^3/uL (130-450) 12/24/18 05:10 MPV 7.7 fL (7.9-10.8) L 12/24/18 05:10 Neut # (Auto) 15.0 10^3/uL (1.5-6.6) H 12/24/18 05:10 Lymph # (Auto) 0.5 10^3/uL (1.5-3.5) L 12/24/18 05:10 [place] # (Auto) 0.2 10^3/uL (0.0-1.0) 12/24/18 05:10 Eos # (Auto) 0.0 10^3/uL (0.0-0.7) 12/24/18 05:10 Baso # (Auto) 0.1 10^3/uL (0.0-0.1) 12/24/18 05:10 Absolute Nucleated RBC 0.01 x10^3/uL 12/24/18 05:10 Nucleated RBC % 0.0 /100WBC 12/24/18 05:10 APTT 95.9 secs (24.9-33.3) H* 12/24/18 05:10 Anti-Xa Level 0.5 U/mL (-0.7) 12/24/18 10:40 Bld Gas Analysis Time 0736 12/24/18 07:42 Sample Site RIGHT RADIAL 12/24/18 07:42 ABG pH 7.37 (7.35-7.45) 12/24/18 07:42 ABG pCO2 36 mmHg (34-45) 12/24/18 07:42 ABG pO2 85 mmHg (80-100) 12/24/18 07:42 ABG HCO3 20.4 mmol/L (22.0-26.0) L 12/24/18 07:42 ABG Total CO2 21.5 MMOL/L (21.0-29.0) 12/24/18 07:42 ABG O2 Saturation 95 % (94-98) 12/24/18 07:42 ABG Base Excess -4.3 mmol/L (-2.0-3.0) L 12/24/18 07:42 Griffin Test POSITIVE 12/24/18 07:42 O2 Delivery Device NASAL CANNULA 12/24/18 07:42 O2 Liters/Min 3.50 LPM 12/24/18 07:42 Sodium 140 mmol/L (135-145) 12/24/18 05:10 Potassium 3.6 mmol/L (3.5-5.0) 12/24/18 05:10 Chloride 108 mmol/L (101-111) 12/24/18 05:10 Carbon Dioxide 20 mmol/L (21-32) L 12/24/18 05:10 Anion Gap 12.0 (6-13) 12/24/18 05:10 BUN 20 mg/dL (6-20) 12/24/18 05:10 Creatinine 1.1 mg/dL (0.4-1.0) H 12/24/18 05:10 Estimated GFR (MDRD) 50 (>89) L 12/24/18 05:10 Glucose 243 mg/dL (70-100) H 12/24/18 05:10 Glycated Hemoglobin 6.6 % (4.6-6.2) H 12/24/18 05:10 Estim Average Glucose 143 (70-100) H 12/24/18 05:10 Lactic Acid 1.8 mmol/L (0.5-2.2) 12/23/18 22:58 Calcium 8.4 mg/dL (8.5-10.3) L 12/24/18 05:10 Total Bilirubin 0.7 mg/dL (0.2-1.0) 12/23/18 22:58 AST 27 IU/L (10-42) 12/23/18 22:58 ALT 23 IU/L (10-60) 12/23/18 22:58 Alkaline Phosphatase 71 IU/L (42-121) 12/23/18 22:58 Troponin I 1.26 ng/mL (<0.49) H* 12/24/18 07:09 B-Natriuretic Peptide 264 pg/mL (5-100) H 12/24/18 05:10 Total Protein 7.1 g/dL (6.7-8.2) 12/23/18 22:58 Albumin 3.9 g/dL (3.2-5.5) 12/23/18 22:58 Globulin 3.2 g/dL (2.1-4.2) 12/23/18 22:58 Albumin/Globulin Ratio 1.2 (1.0-2.2) 12/23/18 22:58 Lipase 42 U/L (22-51) 12/23/18 22:58 Urine Color YELLOW 12/23/18 23:30 Urine Clarity HAZY (CLEAR) 12/23/18 23:30 Urine pH 6.0 PH (5.0-7.5) 12/23/18 23:30 Ur Specific [place] 1.020 (1.002-1.030) 12/23/18 23:30 Urine Protein 100 mg/dL (NEGATIVE) H 12/23/18 23:30 Urine Glucose (UA) NEGATIVE mg/dL (NEGATIVE) 12/23/18 23:30 Urine Ketones NEGATIVE mg/dL (NEGATIVE) 12/23/18 23:30 Urine Occult Blood MODERATE (NEGATIVE) H 12/23/18 23:30 Urine Nitrite POSITIVE (NEGATIVE) H 12/23/18 23:30 Urine Bilirubin NEGATIVE (NEGATIVE) 12/23/18 23:30 Urine Urobilinogen 0.2 (NORMAL) E.U./dL (NORMAL) 12/23/18 23:30 Ur Leukocyte Esterase SMALL (NEGATIVE) H 12/23/18 23:30 Urine RBC 0-5 /HPF (0-5) 12/23/18 23:30 Urine WBC >25 /HPF (0-5) H 12/23/18 23:30 Ur Squamous Epith Cells MOD Squamous (<= Few) H 12/23/18 23:30 Urine Bacteria Few /HPF (None Seen) 12/23/18 23:30 Ur Microscopic Review INDICATED 12/23/18 23:30 Urine Culture Comments NOT INDICATED 12/23/18 23:30 Influenza A (Rapid) Negative (Negative) 12/23/18 22:35 Influenza B (Rapid) Negative (Negative) 12/23/18 22:35 Sepsis Event Note (H) - Evaluation Current Stage of Sepsis: Sepsis Possible source of Sepsis: positive: Genitourinary - Sepsis Criteria Sepsis Criteria: Recorded Heart Rate greater than 90 bpm, WBC count greater than 12,000 or less than 4000
[2018-12-24 13:15] LABS: HGB - HEMOGLOBIN 11.2 g/dL (12.0-16.0); MEAN CORPUSCULAR HEMOGLOBIN 29.9 pg (27.0-31.0); MEAN CORPUSCULAR HGB CONC 32.5 g/dL (32.0-36.0); MEAN CORPUSCULAR VOLUME 91.8 fL (81.0-99.0); MEAN PLATELET VOLUME 7.1 fL (7.9-10.8); RED BLOOD COUNT 3.76 10^6/uL (4.20-5.40); WHITE BLOOD COUNT 17.3 x10^3/uL (4.8-10.8)
[2018-12-24] MEDS ORDERED: CEFEPIME 2 GM in SODIUM CHLORIDE 0.9% MINIBAG 100 ML IV SCH (19:44)
[2018-12-24] MEDS: CEFEPIME 2 GM in SODIUM CHLORIDE 0.9% MINIBAG 100 ML IV SCH (20:06)
[2018-12-25] MEDS: SODIUM CHLORIDE 0.9% 1,000 ML IV SCH ×3 (01:15→08:21)
[2018-12-25] MEDS: HEPARIN 25000UNITS/500ML (D5W) 25,000 UNIT/500 ML BAG IV SCH (01:17)
[2018-12-25 05:25] LABS: BASOPHILS # (AUTO) 0.1 10^3/uL (0.0-0.1); BASOPHILS % (AUTO) 0.4 %; EOSINOPHILS % (AUTO) 0.1 %; HGB - HEMOGLOBIN 10.3 g/dL (12.0-16.0); LYMPHOCYTES # (AUTO) 1.4 10^3/uL (1.5-3.5); MEAN CORPUSCULAR HEMOGLOBIN 29.9 pg (27.0-31.0); MEAN CORPUSCULAR HGB CONC 32.3 g/dL (32.0-36.0); MEAN CORPUSCULAR VOLUME 92.5 fL (81.0-99.0); MEAN PLATELET VOLUME 7.5 fL (7.9-10.8); MONOCYTES # (AUTO) 1.2 10^3/uL (0.0-1.0); MONOCYTES % (AUTO) 8.2 %; NEUTROPHILS # (AUTO) 11.4 10^3/uL (1.5-6.6); NEUTROPHILS % (AUTO) 81.3 %; PLT - PLATELET COUNT 273 10^3/uL (130-450); RED BLOOD COUNT 3.44 10^6/uL (4.20-5.40); WHITE BLOOD COUNT 14.1 x10^3/uL (4.8-10.8)
[2018-12-25 05:29] LABS: CALCIUM 7.8 mg/dL (8.5-10.3); CREATININE 0.9 mg/dL (0.4-1.0)
[2018-12-25] MEDS: PANTOPRAZOLE 40 MG VIAL IVP SCH (06:15)
[2018-12-25] MEDS: SODIUM CHLORIDE FLUSH 0.9% 10 ML SYRINGE IVP PRN (06:17)
[2018-12-25] MEDS: CEFEPIME 2 GM in SODIUM CHLORIDE 0.9% MINIBAG 100 ML IV SCH ×2 (08:16→19:07)
[2018-12-25] MEDS: INSULIN ASPART 300 UNIT/3 ML PEN SUBQ SCH ×4 (08:18→22:42)
[2018-12-25] MEDS: SODIUM CHLORIDE FLUSH 0.9% 10 ML SYRINGE IVP SCH ×2 (08:19→19:08)
[2018-12-25] MEDS: POLYETHYLENE GLYCOL 3350 17 GM PACKET PO SCH (08:19)
--- NOTE | 2018-12-25 08:23 | PROVIDER PROGRESS NOTE ---
Assessment/Plan - Problem List (1) Gram-negative bacteremia Assessment/Plan: Her antibiotic was broadened last evening, when blood cultures were reported out positive, from Keflex for UTI to Cefipime, to cover potential E coli and Pseudomonas from urinary source. Await identification and MICs. (2) UTI (urinary tract infection) Assessment/Plan: CT of abd planned to evaluate for pyelonephritis vs just cystitis. Continue iv antibiotics. (3) Elevated troponin Assessment/Plan: The flat nature of the troponins indicate demand ischemia. The Echo did not show any regional wall motion abnormalities. Will decrease the iv rate from 150/hr to TKO (due to marked pulm HTN seen on Echo). Will add metoprolol daily (due to elevated troponins and demand ischemia). Will check fasting lipid panel. (4) Acute respiratory failure with hypoxia Assessment/Plan: Pulmonary HTN by Echo seen. This may have been why she had the desaturations. She had previous mild pulmonary HTN on 2017 Echo. Will investigate potential causes: ? sleep apnea, COPD. She used to be a smoker, quit . She also does describe apneic episodes that she has had and has never been evaluated for sleep apnea. Will try to wean off supplemental O2 and assess with activity. (5) DM type 2 (diabetes mellitus, type 2) Assessment/Plan: Continue carb-controlled diet and ss Insulin coverage. (6) Anemia Assessment/Plan: Possibly from hemodilution, but will check Iron panel, B12, and Folate and replace if low. (7) Sepsis Assessment/Plan: Resolved - Current Meds Current Meds: Current Medications Generic Name Dose Route Start Last Admin Trade Name Freq PRN Reason Stop Dose Admin Cefepime HCl 2 gm/ Sodium 100 mls @ 200 mls/hr 12/24/18 20:00 12/25/18 08:16 Chloride IV 200 mls/hr Q12H SUSANA Administration Sodium Chloride 1,000 mls @ 30 mls/hr 12/25/18 08:20 12/25/18 08:21 Normal Saline 0.9% IV 30 mls/hr .[id number] SUSANA Administration Insulin Aspart 1 - 9 unit 12/24/18 17:00 12/25/18 08:18 Novolog SUBQ 1 unit 0800,1200,1700,2100 SUSANA Administration Protocol Pantoprazole Sodium 40 mg 12/24/18 07:00 12/25/18 06:15 Protonix IVP 40 mg QDAC SUSANA Administration Polyethylene Glycol 17 gm 12/24/18 09:00 12/25/18 08:19 Miralax PO Not Given DAILY SUSANA Sodium Chloride 10 ml 12/24/18 02:36 12/25/18 06:17 Normal Saline Flush 0.9% IVP 30 ml PRN PRN Administration NEEDED PER PROVIDER ORDERS Sodium Chloride 10 ml 12/24/18 09:00 12/25/18 08:19 Normal Saline Flush 0.9% IVP Not Given 0100,0900,1700 SUSANA - Lab Result Fish Bone Diagrams: 12/25/18 04:55 12/25/18 04:55 - Additional Planning My Orders: My Active Orders 12/24/18 17:00 Insulin Aspart [NovoLOG] 1 - 9 unit SUBQ 0800,1200,1700,2100 12/24/18 17:33 Telemetry- [RC] Q4HR 12/25/18 08:20 Sodium Chloride 0.9% [Normal Saline 0.9%] 1,000 ml IV 30 mls/hr 12/25/18 09:00 Metoprolol Succinate [Toprol Xl] 25 mg PO DAILY 12/26/18 09:00 Enoxaparin [Lovenox] 40 mg SUBQ DAILY Subjective - Subjective Patient Reports: Feeling Better, Resting Comfortably Objective Vital Signs: Vital Signs - 24 hr 12/24/18 12/24/18 12/24/18 14:07 16:00 23:45 Temperature 36.5 C 36.8 C 36.5 C Heart Rate [ 72 88 70 Brachial] Respiratory 18 20 20 Rate Blood Pressure 104/55 L 143/51 H 126/51 L [Left Brachial artery] O2 Saturation 96 97 98 12/25/18 12/25/18 04:56 07:36 Temperature 36.5 C 37.2 C Heart Rate [ 71 73 Brachial] Respiratory 20 18 Rate Blood Pressure 133/53 H 126/56 L [Left Brachial artery] O2 Saturation 96 97 Oxygen O2 Source Nasal cannula Oxygen Flow Rate 4 I&O (Last 24 Hrs): Intake and Output Totals x24h 12/23/18 12/24/18 12/25/18 23:59 23:59 23:59 Intake Total 5402.892 2256.152 Output Total 2975 650 Balance 2427.892 1606.152 General: Alert, Oriented x3 HEENT: Mucous membr. moist/pink Neck: Supple Neuro: Non Focal Cardiovascular: Regular rate, No murmurs Respiratory: No respiratory distress, Breath sounds nml Abdomen: Soft, Other (obese) Extremities: No edema - Results Results: Laboratory Results WBC 14.1 x10^3/uL (4.8-10.8) H 12/25/18 04:55 RBC 3.44 10^6/uL (4.20-5.40) L 12/25/18 04:55 Hgb 10.3 g/dL (12.0-16.0) L 12/25/18 04:55 Hct 31.8 % (37.0-47.0) L 12/25/18 04:55 MCV 92.5 fL (81.0-99.0) 12/25/18 04:55 MCH 29.9 pg (27.0-31.0) 12/25/18 04:55 MCHC 32.3 g/dL (32.0-36.0) 12/25/18 04:55 RDW 15.0 % (12.0-15.0) 12/25/18 04:55 Plt Count 273 10^3/uL (130-450) 12/25/18 04:55 MPV 7.5 fL (7.9-10.8) L 12/25/18 04:55 Neut # (Auto) 11.4 10^3/uL (1.5-6.6) H 12/25/18 04:55 Lymph # (Auto) 1.4 10^3/uL (1.5-3.5) L 12/25/18 04:55 [place] # (Auto) 1.2 10^3/uL (0.0-1.0) H 12/25/18 04:55 Eos # (Auto) 0.0 10^3/uL (0.0-0.7) 12/25/18 04:55 Baso # (Auto) 0.1 10^3/uL (0.0-0.1) 12/25/18 04:55 Absolute Nucleated RBC 0.00 x10^3/uL 12/25/18 04:55 Nucleated RBC % 0.0 /100WBC 12/25/18 04:55 APTT 95.9 secs (24.9-33.3) H* 12/24/18 05:10 Anti-Xa Level 0.6 U/mL (-0.7) 12/25/18 04:55 Bld Gas Analysis Time 0736 12/24/18 07:42 Sample Site RIGHT RADIAL 12/24/18 07:42 Patient Temperature PIG FARMER 12/24/18 07:42 ABG pH 7.37 (7.35-7.45) 12/24/18 07:42 ABG pCO2 36 mmHg (34-45) 12/24/18 07:42 ABG pO2 85 mmHg (80-100) 12/24/18 07:42 ABG HCO3 20.4 mmol/L (22.0-26.0) L 12/24/18 07:42 ABG Total CO2 21.5 MMOL/L (21.0-29.0) 12/24/18 07:42 ABG O2 Saturation 95 % (94-98) 12/24/18 07:42 ABG Oximetry Spot Check PIG FARMER 12/24/18 07:42 ABG Base Excess -4.3 mmol/L (-2.0-3.0) L 12/24/18 07:42 Griffin Test POSITIVE 12/24/18 07:42 Respiration Rate PIG FARMER 12/24/18 07:42 Room Air PIG FARMER 12/24/18 07:42 O2 Delivery Device NASAL CANNULA 12/24/18 07:42 O2 Liters/Min 3.50 LPM 12/24/18 07:42 Vent Mode PIG FARMER 12/24/18 07:42 FiO2 PIG FARMER 12/24/18 07:42 Tidal Volume PIG FARMER 12/24/18 07:42 PEEP PIG FARMER 12/24/18 07:42 Pressure Support Vent PIG FARMER 12/24/18 07:42 EPAP PIG FARMER 12/24/18 07:42 IPAP PIG FARMER 12/24/18 07:42 Sodium 144 mmol/L (135-145) 12/25/18 04:55 Potassium 3.8 mmol/L (3.5-5.0) 12/25/18 04:55 Chloride 113 mmol/L (101-111) H 12/25/18 04:55 Carbon Dioxide 21 mmol/L (21-32) 12/25/18 04:55 Anion Gap 10.0 (6-13) 12/25/18 04:55 BUN 16 mg/dL (6-20) 12/25/18 04:55 Creatinine 0.9 mg/dL (0.4-1.0) 12/25/18 04:55 Estimated GFR (MDRD) 62 (>89) L 12/25/18 04:55 Glucose 149 mg/dL (70-100) H 12/25/18 04:55 POC Whole Bld Glucose 144 mg/dL (70 - 100) H 12/25/18 07:44 Glycated Hemoglobin 6.6 % (4.6-6.2) H 12/24/18 05:10 Estim Average Glucose 143 (70-100) H 12/24/18 05:10 Lactic Acid 1.8 mmol/L (0.5-2.2) 12/23/18 22:58 Calcium 7.8 mg/dL (8.5-10.3) L 12/25/18 04:55 Total Bilirubin 0.7 mg/dL (0.2-1.0) 12/23/18 22:58 AST 27 IU/L (10-42) 12/23/18 22:58 ALT 23 IU/L (10-60) 12/23/18 22:58 Alkaline Phosphatase 71 IU/L (42-121) 12/23/18 22:58 Troponin I 0.99 ng/mL (<0.49) H* 12/24/18 13:00 B-Natriuretic Peptide 264 pg/mL (5-100) H 12/24/18 05:10 Total Protein 7.1 g/dL (6.7-8.2) 12/23/18 22:58 Albumin 3.9 g/dL (3.2-5.5) 12/23/18 22:58 Globulin 3.2 g/dL (2.1-4.2) 12/23/18 22:58 Albumin/Globulin Ratio 1.2 (1.0-2.2) 12/23/18 22:58 Lipase 42 U/L (22-51) 12/23/18 22:58 Urine Color YELLOW 12/23/18 23:30 Urine Clarity HAZY (CLEAR) 12/23/18 23:30 Urine pH 6.0 PH (5.0-7.5) 12/23/18 23:30 Ur Specific [place] 1.020 (1.002-1.030) 12/23/18 23:30 Urine Protein 100 mg/dL (NEGATIVE) H 12/23/18 23:30 Urine Glucose (UA) NEGATIVE mg/dL (NEGATIVE) 12/23/18 23:30 Urine Ketones NEGATIVE mg/dL (NEGATIVE) 12/23/18 23:30 Urine Occult Blood MODERATE (NEGATIVE) H 12/23/18 23:30 Urine Nitrite POSITIVE (NEGATIVE) H 12/23/18 23:30 Urine Bilirubin NEGATIVE (NEGATIVE) 12/23/18 23:30 Urine Urobilinogen 0.2 (NORMAL) E.U./dL (NORMAL) 12/23/18 23:30 Ur Leukocyte Esterase SMALL (NEGATIVE) H 12/23/18 23:30 Urine RBC 0-5 /HPF (0-5) 12/23/18 23:30 Urine WBC >25 /HPF (0-5) H 12/23/18 23:30 Ur Squamous Epith Cells MOD Squamous (<= Few) H 12/23/18 23:30 Urine Bacteria Few /HPF (None Seen) 12/23/18 23:30 Ur Microscopic Review INDICATED 12/23/18 23:30 Urine Culture Comments NOT INDICATED 12/23/18 23:30 Influenza A (Rapid) Negative (Negative) 12/23/18 22:35 Influenza B (Rapid) Negative (Negative) 12/23/18 22:35 Sepsis Event Note (H) - Evaluation Current Stage of Sepsis: Sepsis Possible source of Sepsis: positive: Genitourinary - Sepsis Criteria Sepsis Criteria: Recorded Heart Rate greater than 90 bpm, WBC count greater than 12,000 or less than 4000
[2018-12-25] MEDS ORDERED: cefTRIAXone 1 GM in SODIUM CHLORIDE 0.9% MINIBAG 100 ML IV SCH (09:00)
[2018-12-25] MEDS ORDERED: IOPAMIDOL-300 100 ML VIAL ONE (09:45)
[2018-12-25] MEDS: METOPROLOL SUCCINATE 25 MG TABLET PO SCH (10:36)
[2018-12-25] MEDS: IOPAMIDOL-300 100 ML VIAL IVP ONE (11:47)
--- NOTE | 2018-12-25 12:40 | CT Report ---
Reason: Evaluate for pyelonephritis Procedure Date: 12/25/2018 Accession Number: [id number] / [id number] Procedure: CT - Abdomen/Pelvis W CPT Code: FULL RESULT: EXAM: CT ABDOMEN AND PELVIS EXAM DATE: 12/25/2018 11:45 AM. CLINICAL HISTORY: Evaluate for pyelonephritis. COMPARISONS: None. TECHNIQUE: Routine helical CT imaging was performed through the abdomen and pelvis. IV contrast: ISOVUE 300 100mL. Enteric contrast: No. Reconstructions: Coronal and sagittal. In accordance with CT protocol optimization, one or more of the following dose reduction techniques were utilized for this exam: automated exposure control, adjustment of mA and/or KV based on patient size, or use of iterative reconstructive technique. FINDINGS: Lung Bases: Scattered interstitial thickening and consolidative change at the lung bases. Liver: Normal. No masses. Gallbladder/Bile Ducts: Unremarkable. Spleen: Normal. Pancreas: Normal. Adrenal Glands: Normal. Kidneys: Normal symmetric nephrograms. No masses or hydronephrosis. Peritoneal Cavity/Bowel: Normal. No free fluid, free air or adenopathy. No masses or acute inflammatory process. Pelvic Organs: Normal. The bladder and visualized pelvic organs are within normal limits. Vasculature: Atherosclerosis without aneurysm. Bones: No significant abnormality. Other: None. IMPRESSION: Normal nephrographic enhancement. RADIA
[2018-12-26] MEDS: SODIUM CHLORIDE FLUSH 0.9% 10 ML SYRINGE IVP SCH ×3 (00:19→19:11)
[2018-12-26] MEDS ORDERED: diltiaZEM INJ 5 MG/ML VIAL IVP ONE ×2 (01:47→02:42)
[2018-12-26] MEDS ORDERED: VANCOMYCIN PER PHARMACY 0.001 GM in SODIUM CHLORIDE 0.9% 250 ML IV PRN (02:00)
[2018-12-26 02:05] LABS: BASOPHILS # (AUTO) 0.1 10^3/uL (0.0-0.1); BASOPHILS % (AUTO) 0.8 %; EOSINOPHILS # (AUTO) 0.2 10^3/uL (0.0-0.7); EOSINOPHILS % (AUTO) 1.2 %; HGB - HEMOGLOBIN 10.9 g/dL (12.0-16.0); LYMPHOCYTES # (AUTO) 1.1 10^3/uL (1.5-3.5); LYMPHOCYTES % (AUTO) 8.3 %; MEAN CORPUSCULAR HEMOGLOBIN 29.8 pg (27.0-31.0); MEAN CORPUSCULAR HGB CONC 32.7 g/dL (32.0-36.0); MEAN CORPUSCULAR VOLUME 91.2 fL (81.0-99.0); MEAN PLATELET VOLUME 7.2 fL (7.9-10.8); MONOCYTES % (AUTO) 7.5 %; NEUTROPHILS # (AUTO) 10.6 10^3/uL (1.5-6.6); NEUTROPHILS % (AUTO) 82.2 %; PLT - PLATELET COUNT 270 10^3/uL (130-450); RED BLOOD COUNT 3.66 10^6/uL (4.20-5.40); RED CELL DISTRIBUTION WIDTH 15.3 % (12.0-15.0); WHITE BLOOD COUNT 12.9 x10^3/uL (4.8-10.8)
[2018-12-26 02:59] LABS: CALCIUM 8.4 mg/dL (8.5-10.3); MAGNESIUM 1.9 mg/dL (1.7-2.8); PHOSPHORUS 3.3 mg/dL (2.5-4.6)
[2018-12-26] MEDS ORDERED: WATER FOR INJECTION,STERILE 40 ML ONE (02:59)
[2018-12-26] MEDS ORDERED: VANCOMYCIN INJ 1.5 GM in SODIUM CHLORIDE 0.9% 500 ML IV SCH (03:00)
[2018-12-26] MEDS ORDERED: VANCOMYCIN 1 GM VIAL ONE (03:03)
[2018-12-26] MEDS ORDERED: SODIUM CHLORIDE 0.9% 500 ML IV ONE (03:10)
--- NOTE | 2018-12-26 03:25 | XRAY Report ---
Reason: increased work of breathing, fever Procedure Date: 12/26/2018 Accession Number: [id number] / [id number] Procedure: XR - Chest 1 View X-Ray CPT Code: 61119 FULL RESULT: EXAM: CHEST RADIOGRAPHY EXAM DATE: 12/26/2018 02:58 AM. CLINICAL HISTORY: Increased work of breathing, fever. COMPARISON: CHEST 1 VIEW 12/23/2018 10:30 PM. TECHNIQUE: 1 view. FINDINGS: Lungs/Pleura: No focal opacities evident. No pleural effusion. No pneumothorax. Mediastinum: Within exam limitations, the cardiomediastinal contour is normal. Other: None. IMPRESSION: No evolving infiltrates. RADIA
[2018-12-26] MEDS: SODIUM CHLORIDE FLUSH 0.9% 10 ML SYRINGE IVP PRN (06:14)
[2018-12-26] MEDS: PANTOPRAZOLE 40 MG VIAL IVP SCH (06:14)
[2018-12-26 06:25] LABS: BASOPHILS # (AUTO) 0.1 10^3/uL (0.0-0.1); BASOPHILS % (AUTO) 0.5 %; EOSINOPHILS # (AUTO) 0.1 10^3/uL (0.0-0.7); EOSINOPHILS % (AUTO) 1.2 %; HGB - HEMOGLOBIN 10.9 g/dL (12.0-16.0); LYMPHOCYTES # (AUTO) 1.4 10^3/uL (1.5-3.5); LYMPHOCYTES % (AUTO) 12.4 %; MEAN CORPUSCULAR HEMOGLOBIN 30.3 pg (27.0-31.0); MEAN CORPUSCULAR HGB CONC 32.9 g/dL (32.0-36.0); MEAN PLATELET VOLUME 7.3 fL (7.9-10.8); MONOCYTES # (AUTO) 1.1 10^3/uL (0.0-1.0); MONOCYTES % (AUTO) 9.5 %; NEUTROPHILS # (AUTO) 8.8 10^3/uL (1.5-6.6); NEUTROPHILS % (AUTO) 76.4 %; PLT - PLATELET COUNT 285 10^3/uL (130-450); RED CELL DISTRIBUTION WIDTH 15.4 % (12.0-15.0); WHITE BLOOD COUNT 11.5 x10^3/uL (4.8-10.8)
[2018-12-26 06:33] LABS: CALCIUM 8.4 mg/dL (8.5-10.3); CREATININE 0.9 mg/dL (0.4-1.0)
[2018-12-26] MEDS: INSULIN ASPART 300 UNIT/3 ML PEN SUBQ SCH ×4 (07:56→21:33)
[2018-12-26] MEDS: CEFEPIME 2 GM in SODIUM CHLORIDE 0.9% MINIBAG 100 ML IV SCH ×2 (08:36→20:12)
[2018-12-26] MEDS: ENOXAPARIN 40 MG/0.4 ML SYRINGE SUBQ SCH (08:36)
[2018-12-26] MEDS: POLYETHYLENE GLYCOL 3350 17 GM PACKET PO SCH (08:36)
[2018-12-26] MEDS: METOPROLOL SUCCINATE 25 MG TABLET PO SCH ×2 (08:36→20:11)
--- NOTE | 2018-12-26 11:08 | PROVIDER PROGRESS NOTE ---
Assessment/Plan - Problem List (1) E. coli bacteremia Assessment/Plan: E coli has grown in 2/2 cutures. Sensitivites are available and it is sensitive to Cefipime, which was started 2 nights ago, when the Keflex was broadened. The WBC is lower today and no new increase in lacic acid. Plan 10-14 days of antibiotics. (2) UTI (urinary tract infection) Assessment/Plan: The abdominal imaging done yesterday, did not show a pyelonephritis, therefore this is a cystitis. Continue the iv antibiotics. (3) Bronchitis Assessment/Plan: Her new complaint is a wet cough, but CXR shows no abnormality. Will order a sputum sample and will treat the cough symptomatically with Mucinex. (4) SVT (supraventricular tachycardia) Assessment/Plan: The patient went into sustaine SVT last night, when she had the fever and new cough. She was given Cardizem 10 mg iv x1. An EKG was done that showed sinus tachy with frequent atrial couplets in a trigeminy pattern. The heart rate responded to Tylenol for the fever and the Cardizem dose, and she is in NSR now. 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 Will check TSH to eval for hyperthyroidism. Continue to treat the infection and fever and her bronchitis. (5) Rheumatoid arthritis Assessment/Plan: This may be the reason for Pulm HTN. Will continue her home MTX weekly and her anti-inflammatory med. (6) Pulmonary HTN Assessment/Plan: Her iv fluids were decreased to TKO yesterday. This needs outpt evaluation, which was communicated to pt yesterday. I will start Spironolactone when her fevers have defervesced. (7) Elevated troponin Assessment/Plan: Demand ischemia is the likely reason for this. Yesterday, she told me that she gets occaisional "chest pressure" sometimes that has never had evaluation. (8) DM type 2 (diabetes mellitus, type 2) Assessment/Plan: On carb controlled diet and ss Insulin (9) Anemia Assessment/Plan: Awaiting labs then replace if low (10) Sepsis Assessment/Plan: HR went up when she had a fever overnight, but lactic acid was normal and CXR did not show an infiltrate, despite her new cough. - Current Meds Current Meds: Current Medications Generic Name Dose Route Start Last Admin Trade Name Freq PRN Reason Stop Dose Admin Acetaminophen 650 mg 12/24/18 02:36 12/26/18 01:00 Tylenol PO 650 mg Q4HR PRN Administration Pain 1 to 4 Enoxaparin Sodium 40 mg 12/26/18 09:00 12/26/18 08:36 Lovenox SUBQ 40 mg DAILY SUSANA Administration Cefepime HCl 2 gm/ Sodium 100 mls @ 200 mls/hr 12/24/18 20:00 12/26/18 09:06 Chloride IV Infused Q12H SUSANA Infusion Sodium Chloride 1,000 mls @ 30 mls/hr 12/25/18 08:20 12/25/18 11:46 Normal Saline 0.9% IV 30 mls/hr .[id number] SUSANA Infusion Insulin Aspart 1 - 9 unit 12/24/18 17:00 12/26/18 07:56 Novolog SUBQ Not Given 0800,1200,1700,2100 [facility] Protocol Metoprolol Succinate 25 mg 12/25/18 09:00 12/26/18 08:36 Toprol Xl PO 25 mg DAILY SUSANA Administration Pantoprazole Sodium 40 mg 12/24/18 07:00 12/26/18 06:14 Protonix IVP 40 mg QDAC SUSANA Administration Polyethylene Glycol 17 gm 12/24/18 09:00 12/26/18 08:36 Miralax PO Not Given DAILY SUSANA Sodium Chloride 10 ml 12/24/18 02:36 12/26/18 06:14 Normal Saline Flush 0.9% IVP 30 ml PRN PRN Administration NEEDED PER PROVIDER ORDERS Sodium Chloride 10 ml 12/24/18 09:00 12/26/18 08:37 Normal Saline Flush 0.9% IVP Not Given 0100,0900,1700 SUSANA - Lab Result Fish Bone Diagrams: 12/26/18 05:48 12/26/18 05:48 - EKG Results EKG Interpreted Independently: Yes EKG Comparison: Changed from prior EKG EKG Findings: Sinus tachycardia, rate 137, frequent atrial couplets divine trigeminy pattern, NSSTT changes. - Additional Planning My Orders: My Active Orders 12/25/18 Dinner Carb-controlled Diet [DIET] 12/26/18 08:44 Carboxymethylcellulose 1% Opht [Refresh 1% Ophth Drops] 1 drops EACHEYE PRN PRN 12/26/18 09:00 Enoxaparin [Lovenox] 40 mg SUBQ DAILY Subjective - Subjective Patient Reports: Pain, Other (Her rheumatoid arthritis is "acting up" with pain in L shoulder, both knees and R wrist is swollen and painful. Today would be her weekly MTX injection for RA.) Objective Vital Signs: Vital Signs - 24 hr 12/25/18 12/26/18 12/26/18 15:28 00:00 00:46 Temperature 36.9 C 37.0 C 38.5 C H Heart Rate [ 91 104 H 150 H Brachial] Respiratory 20 22 Rate Blood Pressure Blood Pressure 124/85 H 149/73 H [Left Brachial artery] Blood Pressure [Right Brachial artery] O2 Saturation 97 93 12/26/18 12/26/18 12/26/18 01:42 02:01 02:12 Temperature 37.2 C 37.2 C Heart Rate [ 157 H 138 H Brachial] Respiratory 23 24 Rate Blood Pressure 138/67 H Blood Pressure 141/83 H [Left Brachial artery] Blood Pressure 148/89 H [Right Brachial artery] O2 Saturation 96 97 12/26/18 12/26/18 12/26/18 02:16 02:20 02:25 Temperature Heart Rate [ 146 H 119 H 150 H Brachial] Respiratory Rate Blood Pressure Blood Pressure [Left Brachial artery] Blood Pressure 138/67 H 137/61 H 155/69 H [Right Brachial artery] O2 Saturation 98 12/26/18 12/26/18 12/26/18 02:32 02:45 03:05 Temperature Heart Rate [ 141 H 92 92 Brachial] Respiratory Rate Blood Pressure Blood Pressure [Left Brachial artery] Blood Pressure 133/83 H 125/64 137/66 H [Right Brachial artery] O2 Saturation 12/26/18 12/26/18 03:15 07:22 Temperature 36.7 C Heart Rate [ 92 86 Brachial] Respiratory 18 Rate Blood Pressure Blood Pressure 116/70 [Left Brachial artery] Blood Pressure 140/68 H [Right Brachial artery] O2 Saturation 98 Oxygen O2 Source Nasal cannula Oxygen Flow Rate 4 I&O (Last 24 Hrs): Intake and Output Totals x24h 12/24/18 12/25/18 12/26/18 23:59 23:59 23:59 Intake Total 5402.892 4595.948 960 Output Total 2975 1300 Balance 2427.892 3295.948 960 General: Alert, Oriented x3 HEENT: Mucous membr. moist/pink Neck: Supple Neuro: Non Focal Cardiovascular: Regular rate Abdomen: Soft Extremities: No edema, Other (R wrist swollen, not red or warm) - Results Results: Laboratory Results WBC 11.5 x10^3/uL (4.8-10.8) H 12/26/18 05:48 RBC 3.60 10^6/uL (4.20-5.40) L 12/26/18 05:48 Hgb 10.9 g/dL (12.0-16.0) L 12/26/18 05:48 Hct 33.1 % (37.0-47.0) L 12/26/18 05:48 MCV 92.0 fL (81.0-99.0) 12/26/18 05:48 MCH 30.3 pg (27.0-31.0) 12/26/18 05:48 MCHC 32.9 g/dL (32.0-36.0) 12/26/18 05:48 RDW 15.4 % (12.0-15.0) H 12/26/18 05:48 Plt Count 285 10^3/uL (130-450) 12/26/18 05:48 MPV 7.3 fL (7.9-10.8) L 12/26/18 05:48 Neut # (Auto) 8.8 10^3/uL (1.5-6.6) H 12/26/18 05:48 Lymph # (Auto) 1.4 10^3/uL (1.5-3.5) L 12/26/18 05:48 [place] # (Auto) 1.1 10^3/uL (0.0-1.0) H 12/26/18 05:48 Eos # (Auto) 0.1 10^3/uL (0.0-0.7) 12/26/18 05:48 Baso # (Auto) 0.1 10^3/uL (0.0-0.1) 12/26/18 05:48 Absolute Nucleated RBC 0.01 x10^3/uL 12/26/18 05:48 Nucleated RBC % 0.1 /100WBC 12/26/18 05:48 APTT 95.9 secs (24.9-33.3) H* 12/24/18 05:10 Anti-Xa Level 0.6 U/mL (-0.7) 12/25/18 04:55 Bld Gas Analysis Time 0736 12/24/18 07:42 Sample Site RIGHT RADIAL 12/24/18 07:42 Patient Temperature AWNING MAKER 12/24/18 07:42 ABG pH 7.37 (7.35-7.45) 12/24/18 07:42 ABG pCO2 36 mmHg (34-45) 12/24/18 07:42 ABG pO2 85 mmHg (80-100) 12/24/18 07:42 ABG HCO3 20.4 mmol/L (22.0-26.0) L 12/24/18 07:42 ABG Total CO2 21.5 MMOL/L (21.0-29.0) 12/24/18 07:42 ABG O2 Saturation 95 % (94-98) 12/24/18 07:42 ABG Oximetry Spot Check AWNING MAKER 12/24/18 07:42 ABG Base Excess -4.3 mmol/L (-2.0-3.0) L 12/24/18 07:42 Griffin Test POSITIVE 12/24/18 07:42 Respiration Rate AWNING MAKER 12/24/18 07:42 Room Air AWNING MAKER 12/24/18 07:42 O2 Delivery Device NASAL CANNULA 12/24/18 07:42 O2 Liters/Min 3.50 LPM 12/24/18 07:42 Vent Mode AWNING MAKER 12/24/18 07:42 FiO2 AWNING MAKER 12/24/18 07:42 Tidal Volume AWNING MAKER 12/24/18 07:42 PEEP AWNING MAKER 12/24/18 07:42 Pressure Support Vent AWNING MAKER 12/24/18 07:42 EPAP AWNING MAKER 12/24/18 07:42 IPAP AWNING MAKER 12/24/18 07:42 Sodium 143 mmol/L (135-145) 12/26/18 05:48 Potassium 3.7 mmol/L (3.5-5.0) 12/26/18 05:48 Chloride 110 mmol/L (101-111) 12/26/18 05:48 Carbon Dioxide 25 mmol/L (21-32) 12/26/18 05:48 Anion Gap 8.0 (6-13) 12/26/18 05:48 BUN 9 mg/dL (6-20) 12/26/18 05:48 Creatinine 0.9 mg/dL (0.4-1.0) 12/26/18 05:48 Estimated GFR (MDRD) 62 (>89) L 12/26/18 05:48 Glucose 129 mg/dL (70-100) H 12/26/18 05:48 POC Whole Bld Glucose 121 mg/dL (70 - 100) H 12/26/18 07:18 Glycated Hemoglobin 6.6 % (4.6-6.2) H 12/24/18 05:10 Estim Average Glucose 143 (70-100) H 12/24/18 05:10 Lactic Acid 1.4 mmol/L (0.5-2.2) 12/26/18 02:40 Calcium 8.4 mg/dL (8.5-10.3) L 12/26/18 05:48 Phosphorus 3.3 mg/dL (2.5-4.6) 12/26/18 02:45 Magnesium 1.9 mg/dL (1.7-2.8) 12/26/18 02:45 Total Bilirubin 0.7 mg/dL (0.2-1.0) 12/23/18 22:58 AST 27 IU/L (10-42) 12/23/18 22:58 ALT 23 IU/L (10-60) 12/23/18 22:58 Alkaline Phosphatase 71 IU/L (42-121) 12/23/18 22:58 Troponin I 0.99 ng/mL (<0.49) H* 12/24/18 13:00 B-Natriuretic Peptide 264 pg/mL (5-100) H 12/24/18 05:10 Total Protein 7.1 g/dL (6.7-8.2) 12/23/18 22:58 Albumin 3.9 g/dL (3.2-5.5) 12/23/18 22:58 Globulin 3.2 g/dL (2.1-4.2) 12/23/18 22:58 Albumin/Globulin Ratio 1.2 (1.0-2.2) 12/23/18 22:58 Lipase 42 U/L (22-51) 12/23/18 22:58 Urine Color YELLOW 12/23/18 23:30 Urine Clarity HAZY (CLEAR) 12/23/18 23:30 Urine pH 6.0 PH (5.0-7.5) 12/23/18 23:30 Ur Specific [place] 1.020 (1.002-1.030) 12/23/18 23:30 Urine Protein 100 mg/dL (NEGATIVE) H 12/23/18 23:30 Urine Glucose (UA) NEGATIVE mg/dL (NEGATIVE) 12/23/18 23:30 Urine Ketones NEGATIVE mg/dL (NEGATIVE) 12/23/18 23:30 Urine Occult Blood MODERATE (NEGATIVE) H 12/23/18 23:30 Urine Nitrite POSITIVE (NEGATIVE) H 12/23/18 23:30 Urine Bilirubin NEGATIVE (NEGATIVE) 12/23/18 23:30 Urine Urobilinogen 0.2 (NORMAL) E.U./dL (NORMAL) 12/23/18 23:30 Ur Leukocyte Esterase SMALL (NEGATIVE) H 12/23/18 23:30 Urine RBC 0-5 /HPF (0-5) 12/23/18 23:30 Urine WBC >25 /HPF (0-5) H 12/23/18 23:30 Ur Squamous Epith Cells MOD Squamous (<= Few) H 12/23/18 23:30 Urine Bacteria Few /HPF (None Seen) 12/23/18 23:30 Ur Microscopic Review INDICATED 12/23/18 23:30 Urine Culture Comments NOT INDICATED 12/23/18 23:30 Influenza A (Rapid) Negative (Negative) 12/23/18 22:35 Influenza B (Rapid) Negative (Negative) 12/23/18 22:35 Sepsis Event Note (H) - Evaluation Current Stage of Sepsis: Sepsis Possible source of Sepsis: positive: Genitourinary - Sepsis Criteria Sepsis Criteria: Recorded Heart Rate greater than 90 bpm, WBC count greater than 12,000 or less than 4000
[2018-12-26] MEDS: CARBOXYMETHYLCELLULOSE OPHTH DROPS EACHEYE PRN (12:53)
[2018-12-26] MEDS: guaiFENesin 600 MG TABLET PO SCH ×2 (12:53→20:11)
[2018-12-26] MEDS: VANCOMYCIN INJ 1 GM, VANCOMYCIN INJ 250 MG in SODIUM CHLORIDE 0.9% 250 ML IV SCH (14:39)
[2018-12-26] MEDS: BENZOCAINE/MENTHOL LOZENGE MM PRN (14:44)
[2018-12-26] MEDS ORDERED: METHOTREXATE SODIUM IM SCH (17:00)
[2018-12-26] MEDS ORDERED: METHOTREXATE 50 MG/2 ML MDV IM SCH (17:00)
[2018-12-26] MEDS: sulfaSALAzine 500 MG TABLET PO SCH (17:22)
[2018-12-26] MEDS: SODIUM CHLORIDE 0.9% 1,000 ML IV SCH (20:11)
[2018-12-26] MEDS: ATORVASTATIN 10 MG TABLET PO SCH (20:11)
[2018-12-26] MEDS: METOPROLOL SUCCINATE 50 MG TABLET PO SCH (21:33)
[2018-12-27] MEDS: BENZOCAINE/MENTHOL LOZENGE MM PRN ×2 (00:49→09:56)
[2018-12-27] MEDS: guaiFENesin 100 MG/5 ML UDC PO PRN (01:00)
[2018-12-27] MEDS: SODIUM CHLORIDE FLUSH 0.9% 10 ML SYRINGE IVP SCH ×4 (03:15→21:59)
[2018-12-27] MEDS: VANCOMYCIN INJ 1 GM, VANCOMYCIN INJ 250 MG in SODIUM CHLORIDE 0.9% 250 ML IV SCH (03:15)
[2018-12-27] MEDS: PANTOPRAZOLE 40 MG TABLET PO SCH (06:44)
[2018-12-27] MEDS: PANTOPRAZOLE 40 MG VIAL IVP SCH (06:44)
[2018-12-27 06:50] LABS: BASOPHILS % (AUTO) 0.4 %; EOSINOPHILS # (AUTO) 0.3 10^3/uL (0.0-0.7); EOSINOPHILS % (AUTO) 3.8 %; HGB - HEMOGLOBIN 10.9 g/dL (12.0-16.0); LYMPHOCYTES # (AUTO) 1.2 10^3/uL (1.5-3.5); LYMPHOCYTES % (AUTO) 13.5 %; MEAN CORPUSCULAR HEMOGLOBIN 30.1 pg (27.0-31.0); MEAN CORPUSCULAR HGB CONC 33.1 g/dL (32.0-36.0); MEAN CORPUSCULAR VOLUME 91.1 fL (81.0-99.0); MONOCYTES # (AUTO) 0.8 10^3/uL (0.0-1.0); MONOCYTES % (AUTO) 8.6 %; NEUTROPHILS # (AUTO) 6.5 10^3/uL (1.5-6.6); NEUTROPHILS % (AUTO) 73.7 %; PLT - PLATELET COUNT 298 10^3/uL (130-450); RED BLOOD COUNT 3.63 10^6/uL (4.20-5.40); RED CELL DISTRIBUTION WIDTH 15.1 % (12.0-15.0); WHITE BLOOD COUNT 8.8 x10^3/uL (4.8-10.8)
[2018-12-27] MEDS: SODIUM CHLORIDE 0.9% 1,000 ML IV SCH (07:03)
[2018-12-27 07:05] LABS: BUN - BLOOD UREA NITROGEN 10 mg/dL (6-20); CALCIUM 8.7 mg/dL (8.5-10.3); CARBON DIOXIDE - CO2 27 mmol/L (21-32); CHLORIDE 105 mmol/L (101-111); CREATININE 0.8 mg/dL (0.4-1.0); GFR - MDRD 72 (>89); GLUCOSE 134 mg/dL (70-100); IRON < 6 ug/dL (28-170); SODIUM 138 mmol/L (135-145); TOTAL IRON BINDING CAPACITY 218 ug/dL (250-450); TRANSFERRIN 156 mg/dL (192-382)
[2018-12-27 07:16] LABS: THYROID STIMULATING HORMONE 1.9 uIU/mL (0.34-5.60)
[2018-12-27 07:28] LABS: FOLATE 19.56 ng/mL (5.90 - >24.8)
[2018-12-27] MEDS: INSULIN ASPART 300 UNIT/3 ML PEN SUBQ SCH ×4 (07:57→20:24)
[2018-12-27] MEDS: CEFEPIME 2 GM in SODIUM CHLORIDE 0.9% MINIBAG 100 ML IV SCH ×2 (07:57→19:31)
[2018-12-27] MEDS: sulfaSALAzine 500 MG TABLET PO SCH ×3 (07:57→16:45)
[2018-12-27] MEDS: FERROUS GLUCONATE 324 MG TABLET PO SCH (07:57)
[2018-12-27] MEDS: FOLIC ACID 1 MG TABLET PO SCH (09:55)
[2018-12-27] MEDS: ENOXAPARIN 40 MG/0.4 ML SYRINGE SUBQ SCH (09:55)
[2018-12-27] MEDS: ASPIRIN EC 81 MG TABLET PO SCH (09:55)
[2018-12-27] MEDS: guaiFENesin 600 MG TABLET PO SCH ×2 (09:55→20:24)
[2018-12-27] MEDS: METOPROLOL SUCCINATE 50 MG TABLET PO SCH ×2 (09:56→20:24)
[2018-12-27] MEDS: POTASSIUM CHLORIDE 10 MEQ CAPSULE PO SCH (09:56)
[2018-12-27] MEDS: METOPROLOL SUCCINATE 25 MG TABLET PO SCH (09:56)
[2018-12-27] MEDS: POLYETHYLENE GLYCOL 3350 17 GM PACKET PO SCH (09:57)
[2018-12-27] MEDS: DOCUSATE SODIUM 250 MG CAPSULE PO SCH (09:57)
[2018-12-27] MEDS ORDERED: LEVALBUTEROL 1.25 MG/3 ML NEB INH PRN (11:41)
--- NOTE | 2018-12-27 11:41 | PROVIDER PROGRESS NOTE ---
Assessment/Plan - Problem List (1) E. coli bacteremia Assessment/Plan: Sensitivies are back and it is sensitive to the Will redraw blood cultures to asure they are neg on this antibiotic treatment. Plan a 2 week course of treatment. (3) Bronchitis Assessment/Plan: Will order prn nebs and a course of iv steroids. (4) SVT (supraventricular tachycardia) Assessment/Plan: No further.SVT since her home dose of metoprolol was resumed yesterday. Continue telemetry. (6) Pulmonary HTN Assessment/Plan: I suspect she may have Rgeumatoid lung causing or adding to the Pulm HTN, which is severe, 88 mmHg on Echo this admission, increased from 40 mmHg several years ago. She had wheezing last night. Will order prn nebs and a course of iv steroids. (7) Elevated troponin Assessment/Plan: Demand ischemia is suspected due to "flat" pattern of troponins. She will need Cardiology evaluation after bacteremia cleared. (8) DM type 2 (diabetes mellitus, type 2) Assessment/Plan: Cont carb-controlled diet and ss Insulin. (9) Anemia Qualifiers: Anemia type: iron deficiency Assessment/Plan: Will start po Iron replacement. (10) Sepsis Assessment/Plan: Resolved - Current Meds Current Meds: Current Medications Generic Name Dose Route Start Last Admin Trade Name Freq PRN Reason Stop Dose Admin Acetaminophen 650 mg 12/24/18 02:36 12/26/18 01:00 Tylenol PO 650 mg Q4HR PRN Administration Pain 1 to 4 Aspirin 81 mg 12/27/18 09:00 12/27/18 09:55 Ecotrin PO 81 mg DAILY SUSANA Administration Atorvastatin Calcium 20 mg 12/26/18 21:00 12/26/18 20:11 Lipitor PO 20 mg QPM SUSANA Administration Carboxymethylcellulose 1 drops 12/26/18 08:44 12/26/18 12:53 Refresh 1% Ophth Drops EACHEYE 1 drops PRN PRN Administration Dry Eye Docusate Sodium 250 - 500 mg 12/27/18 09:00 12/27/18 09:57 Colace 250mg Capsule PO Not Given DAILY SUSANA Enoxaparin Sodium 40 mg 12/26/18 09:00 12/27/18 09:55 Lovenox SUBQ 40 mg DAILY SUSANA Administration Ferrous Gluconate 324 mg 12/27/18 08:00 12/27/18 07:57 Fergon PO 324 mg DAILYWM SUSANA Administration Folic Acid 1 mg 12/27/18 09:00 12/27/18 09:55 PO 1 mg DAILY SUSANA Administration Guaifenesin 600 mg 12/26/18 12:00 12/27/18 09:55 Mucinex PO 600 mg BID SUSANA Administration Guaifenesin 100 mg 12/27/18 00:41 12/27/18 01:00 Robitussin Liquid PO 100 mg Q6HR PRN Administration Cough Cefepime HCl 2 gm/ Sodium 100 mls @ 200 mls/hr 12/24/18 20:00 12/27/18 08:27 Chloride IV Infused Q12H SUSANA Infusion Sodium Chloride 1,000 mls @ 30 mls/hr 12/25/18 08:20 12/27/18 07:03 Normal Saline 0.9% IV 30 mls/hr .[id number] SUSANA Administration Insulin Aspart 1 - 9 unit 12/24/18 17:00 12/27/18 07:57 Novolog SUBQ Not Given 0800,1200,1700,2100 [facility] Protocol Methotrexate Sodium 45 mg 12/26/18 17:00 12/26/18 17:12 IM 45 mg Sa@1700 SUSANA Administration Metoprolol Succinate 25 mg 12/25/18 09:00 12/27/18 09:56 Toprol Xl PO 25 mg DAILY SUSANA Administration Metoprolol Succinate 100 mg 12/26/18 21:00 12/27/18 09:56 Toprol Xl PO 100 mg BID SUSANA Administration Pantoprazole Sodium 40 mg 12/24/18 07:00 12/27/18 06:44 Protonix IVP Not Given QDAC SUSANA Pantoprazole Sodium 40 mg 12/27/18 07:00 12/27/18 06:44 Protonix PO 40 mg QDAC SUSANA Administration Polyethylene Glycol 17 gm 12/24/18 09:00 12/27/18 09:57 Miralax PO Not Given DAILY SUSANA Potassium Chloride 10 meq 12/27/18 09:00 12/27/18 09:56 Micro-K PO 10 meq DAILY SUSANA Administration Sodium Chloride 10 ml 12/24/18 02:36 12/26/18 06:14 Normal Saline Flush 0.9% IVP 30 ml PRN PRN Administration NEEDED PER PROVIDER ORDERS Sodium Chloride 10 ml 12/24/18 09:00 12/27/18 07:03 Normal Saline Flush 0.9% IVP 10 ml 0100,0900,1700 SUSANA Administration Sulfasalazine 500 mg 12/26/18 17:00 12/27/18 07:57 Azulfidine PO 500 mg BIDWM SUSANA Administration Throat Lozenges 1 lozenge 12/26/18 12:55 12/27/18 09:56 Cepacol MM 1 lozenge Q2HR PRN Administration Throat pain - Lab Result Fish Bone Diagrams: 12/27/18 06:23 12/27/18 06:23 - Additional Planning My Orders: My Active Orders 12/26/18 12:00 guaiFENesin [Mucinex] 600 mg PO BID 12/26/18 12:55 Benzocaine/Menthol [Cepacol] 1 lozenge MM Q2HR PRN 12/26/18 17:00 Methotrexate Inj 45 mg IM Sa@1700 sulfaSALAzine [Azulfidine] 500 mg PO BIDWM 12/26/18 21:00 Atorvastatin [Lipitor] 20 mg PO QPM Metoprolol Succinate [Toprol Xl] 100 mg PO BID 12/27/18 07:00 Pantoprazole [Protonix] 40 mg PO QDAC 12/27/18 08:00 Ferrous Gluconate [Fergon] 324 mg PO DAILYWM 12/27/18 09:00 Aspirin EC [Ecotrin] 81 mg PO DAILY Docusate Sodium 250Mg Capsule [Colace 250Mg Capsule] 250 - 500 mg PO DAILY Folic Acid 1 mg PO DAILY Potassium Chloride [Micro-K] 10 meq PO DAILY 12/27/18 11:39 Miscellaenous Nursing Order [RC] PRN 12/27/18 12:00 Meloxicam [Mobic] 15 mg PO [id number] Subjective - Subjective Patient Reports: Feeling Better, Resting Comfortably Nursing Reports: Other (Had SOB and was wheezing last night) Objective Vital Signs: Vital Signs - 24 hr 12/26/18 12/26/18 12/27/18 15:00 19:00 06:07 Temperature 37.0 C 37.0 C 37.2 C Heart Rate Heart Rate [ 80 98 79 Brachial] Respiratory 18 22 20 Rate Blood Pressure 146/68 H 153/74 H 163/65 H [Left Brachial artery] O2 Saturation 99 98 97 12/27/18 12/27/18 07:39 08:35 Temperature 37.5 C 37.5 C Heart Rate 81 Heart Rate [ 90 Brachial] Respiratory 18 18 Rate Blood Pressure 154/89 H [Left Brachial artery] O2 Saturation 95 97 Oxygen O2 Source Nasal cannula Oxygen Flow Rate 4 I&O (Last 24 Hrs): Intake and Output Totals x24h 12/25/18 12/26/18 12/27/18 23:59 23:59 23:59 Intake Total 4595.948 3167.5 1396 Output Total 1300 2700 1100 Balance 3295.948 467.5 296 General: Alert, Oriented x3 HEENT: Mucous membr. moist/pink Neck: Supple Neuro: Non Focal Cardiovascular: Regular rate Respiratory: No respiratory distress Abdomen: Soft Extremities: No edema, Other (R wrist swollen (from RA)) - Results Results: Laboratory Results WBC 8.8 x10^3/uL (4.8-10.8) 12/27/18 06:23 RBC 3.63 10^6/uL (4.20-5.40) L 12/27/18 06:23 Hgb 10.9 g/dL (12.0-16.0) L 12/27/18 06:23 Hct 33.0 % (37.0-47.0) L 12/27/18 06:23 MCV 91.1 fL (81.0-99.0) 12/27/18 06:23 MCH 30.1 pg (27.0-31.0) 12/27/18 06:23 MCHC 33.1 g/dL (32.0-36.0) 12/27/18 06:23 RDW 15.1 % (12.0-15.0) H 12/27/18 06:23 Plt Count 298 10^3/uL (130-450) 12/27/18 06:23 MPV 7.0 fL (7.9-10.8) L 12/27/18 06:23 Neut # (Auto) 6.5 10^3/uL (1.5-6.6) 12/27/18 06:23 Lymph # (Auto) 1.2 10^3/uL (1.5-3.5) L 12/27/18 06:23 [place] # (Auto) 0.8 10^3/uL (0.0-1.0) 12/27/18 06:23 Eos # (Auto) 0.3 10^3/uL (0.0-0.7) 12/27/18 06:23 Baso # (Auto) 0.0 10^3/uL (0.0-0.1) 12/27/18 06:23 Absolute Nucleated RBC 0.00 x10^3/uL 12/27/18 06:23 Nucleated RBC % 0.0 /100WBC 12/27/18 06:23 APTT 95.9 secs (24.9-33.3) H* 12/24/18 05:10 Anti-Xa Level 0.6 U/mL (-0.7) 12/25/18 04:55 Bld Gas Analysis Time 0736 12/24/18 07:42 Sample Site RIGHT RADIAL 12/24/18 07:42 Patient Temperature PAPER SUPERVISOR 12/24/18 07:42 ABG pH 7.37 (7.35-7.45) 12/24/18 07:42 ABG pCO2 36 mmHg (34-45) 12/24/18 07:42 ABG pO2 85 mmHg (80-100) 12/24/18 07:42 ABG HCO3 20.4 mmol/L (22.0-26.0) L 12/24/18 07:42 ABG Total CO2 21.5 MMOL/L (21.0-29.0) 12/24/18 07:42 ABG O2 Saturation 95 % (94-98) 12/24/18 07:42 ABG Oximetry Spot Check PAPER SUPERVISOR 12/24/18 07:42 ABG Base Excess -4.3 mmol/L (-2.0-3.0) L 12/24/18 07:42 Griffin Test POSITIVE 12/24/18 07:42 Respiration Rate PAPER SUPERVISOR 12/24/18 07:42 Room Air PAPER SUPERVISOR 12/24/18 07:42 O2 Delivery Device NASAL CANNULA 12/24/18 07:42 O2 Liters/Min 3.50 LPM 12/24/18 07:42 Vent Mode PAPER SUPERVISOR 12/24/18 07:42 FiO2 PAPER SUPERVISOR 12/24/18 07:42 Tidal Volume PAPER SUPERVISOR 12/24/18 07:42 PEEP PAPER SUPERVISOR 12/24/18 07:42 Pressure Support Vent PAPER SUPERVISOR 12/24/18 07:42 EPAP PAPER SUPERVISOR 12/24/18 07:42 IPAP PAPER SUPERVISOR 12/24/18 07:42 Sodium 138 mmol/L (135-145) 12/27/18 06:23 Potassium 3.6 mmol/L (3.5-5.0) 12/27/18 06:23 Chloride 105 mmol/L (101-111) 12/27/18 06:23 Carbon Dioxide 27 mmol/L (21-32) 12/27/18 06:23 Anion Gap 6.0 (6-13) 12/27/18 06:23 BUN 10 mg/dL (6-20) 12/27/18 06:23 Creatinine 0.8 mg/dL (0.4-1.0) 12/27/18 06:23 Estimated GFR (MDRD) 72 (>89) L 12/27/18 06:23 Glucose 134 mg/dL (70-100) H 12/27/18 06:23 POC Whole Bld Glucose 132 mg/dL (70 - 100) H 12/27/18 07:38 Glycated Hemoglobin 6.6 % (4.6-6.2) H 12/24/18 05:10 Estim Average Glucose 143 (70-100) H 12/24/18 05:10 Lactic Acid 1.4 mmol/L (0.5-2.2) 12/26/18 02:40 Calcium 8.7 mg/dL (8.5-10.3) 12/27/18 06:23 Phosphorus 3.3 mg/dL (2.5-4.6) 12/26/18 02:45 Magnesium 1.9 mg/dL (1.7-2.8) 12/26/18 02:45 Iron < 6 ug/dL (28-170) L 12/27/18 06:23 TIBC 218 ug/dL (250-450) L 12/27/18 06:23 Transferrin 156 mg/dL (192-382) L 12/27/18 06:23 Total Bilirubin 0.7 mg/dL (0.2-1.0) 12/23/18 22:58 AST 27 IU/L (10-42) 12/23/18 22:58 ALT 23 IU/L (10-60) 12/23/18 22:58 Alkaline Phosphatase 71 IU/L (42-121) 12/23/18 22:58 Troponin I 0.99 ng/mL (<0.49) H* 12/24/18 13:00 B-Natriuretic Peptide 264 pg/mL (5-100) H 12/24/18 05:10 Total Protein 7.1 g/dL (6.7-8.2) 12/23/18 22:58 Albumin 3.9 g/dL (3.2-5.5) 12/23/18 22:58 Globulin 3.2 g/dL (2.1-4.2) 12/23/18 22:58 Albumin/Globulin Ratio 1.2 (1.0-2.2) 12/23/18 22:58 Lipase 42 U/L (22-51) 12/23/18 22:58 Vitamin B12 532 pg/mL (180-914) 12/27/18 06:23 Folate 19.56 ng/mL (5.90 - >24.8) 12/27/18 06:23 TSH 1.90 uIU/mL (0.34-5.60) 12/27/18 06:23 Urine Color YELLOW 12/23/18 23:30 Urine Clarity HAZY (CLEAR) 12/23/18 23:30 Urine pH 6.0 PH (5.0-7.5) 12/23/18 23:30 Ur Specific Echo 1.020 (1.002-1.030) 12/23/18 23:30 Urine Protein 100 mg/dL (NEGATIVE) H 12/23/18 23:30 Urine Glucose (UA) NEGATIVE mg/dL (NEGATIVE) 12/23/18 23:30 Urine Ketones NEGATIVE mg/dL (NEGATIVE) 12/23/18 23:30 Urine Occult Blood MODERATE (NEGATIVE) H 12/23/18 23:30 Urine Nitrite POSITIVE (NEGATIVE) H 12/23/18 23:30 Urine Bilirubin NEGATIVE (NEGATIVE) 12/23/18 23:30 Urine Urobilinogen 0.2 (NORMAL) E.U./dL (NORMAL) 12/23/18 23:30 Ur Leukocyte Esterase SMALL (NEGATIVE) H 12/23/18 23:30 Urine RBC 0-5 /HPF (0-5) 12/23/18 23:30 Urine WBC >25 /HPF (0-5) H 12/23/18 23:30 Ur Squamous Epith Cells MOD Squamous (<= Few) H 12/23/18 23:30 Urine Bacteria Few /HPF (None Seen) 12/23/18 23:30 Ur Microscopic Review INDICATED 12/23/18 23:30 Urine Culture Comments NOT INDICATED 12/23/18 23:30 Influenza A (Rapid) Negative (Negative) 12/23/18 22:35 Influenza B (Rapid) Negative (Negative) 12/23/18 22:35 Sepsis Event Note (H) - Evaluation Current Stage of Sepsis: Sepsis Possible source of Sepsis: positive: Genitourinary - Sepsis Criteria Sepsis Criteria: Recorded Heart Rate greater than 90 bpm, WBC count greater than 12,000 or less than 4000
[2018-12-27] MEDS: MELOXICAM 7.5 MG TABLET PO SCH (12:48)
[2018-12-27 12:50] LABS: VANCOMYCIN,TROUGH 15.8 ug/mL (10.0-20.0)
[2018-12-27] MEDS: SODIUM CHLORIDE FLUSH 0.9% 10 ML SYRINGE IVP PRN (12:52)
[2018-12-27] MEDS: methylPREDNISolone SUCCINATE 40 MG/ML VIAL IVP SCH ×2 (14:30→21:58)
[2018-12-27] MEDS: ATORVASTATIN 10 MG TABLET PO SCH (20:24)
[2018-12-28 06:46] LABS: CALCIUM 8.8 mg/dL (8.5-10.3); CREATININE 0.7 mg/dL (0.4-1.0)
[2018-12-28] MEDS: SODIUM CHLORIDE FLUSH 0.9% 10 ML SYRINGE IVP SCH ×4 (07:00→19:18)
[2018-12-28] MEDS: PANTOPRAZOLE 40 MG TABLET PO SCH (07:00)
[2018-12-28] MEDS: methylPREDNISolone SUCCINATE 40 MG/ML VIAL IVP SCH ×3 (07:00→22:13)
[2018-12-28] MEDS: PANTOPRAZOLE 40 MG VIAL IVP SCH (07:01)
[2018-12-28 07:34] LABS: BASOPHILS % (AUTO) 0.3 %; HGB - HEMOGLOBIN 11.2 g/dL (12.0-16.0); LYMPHOCYTES # (AUTO) 0.5 10^3/uL (1.5-3.5); MEAN CORPUSCULAR HEMOGLOBIN 30.3 pg (27.0-31.0); MEAN CORPUSCULAR HGB CONC 33.2 g/dL (32.0-36.0); MEAN CORPUSCULAR VOLUME 91.2 fL (81.0-99.0); MEAN PLATELET VOLUME 7.8 fL (7.9-10.8); MONOCYTES # (AUTO) 0.2 10^3/uL (0.0-1.0); MONOCYTES % (AUTO) 2.9 %; NEUTROPHILS # (AUTO) 7.1 10^3/uL (1.5-6.6); NEUTROPHILS % (AUTO) 90.8 %; PLT - PLATELET COUNT 308 10^3/uL (130-450); RED CELL DISTRIBUTION WIDTH 14.8 % (12.0-15.0); WHITE BLOOD COUNT 7.9 x10^3/uL (4.8-10.8)
[2018-12-28] MEDS: sulfaSALAzine 500 MG TABLET PO SCH ×2 (07:58→17:13)
[2018-12-28] MEDS: FERROUS GLUCONATE 324 MG TABLET PO SCH (07:58)
[2018-12-28] MEDS: CEFEPIME 2 GM in SODIUM CHLORIDE 0.9% MINIBAG 100 ML IV SCH ×2 (07:58→19:17)
[2018-12-28] MEDS: INSULIN ASPART 300 UNIT/3 ML PEN SUBQ SCH ×4 (07:59→22:13)
[2018-12-28] MEDS: ASPIRIN EC 81 MG TABLET PO SCH (09:22)
[2018-12-28] MEDS: FOLIC ACID 1 MG TABLET PO SCH (09:22)
[2018-12-28] MEDS: DOCUSATE SODIUM 250 MG CAPSULE PO SCH (09:22)
[2018-12-28] MEDS: POTASSIUM CHLORIDE 10 MEQ CAPSULE PO SCH (09:22)
[2018-12-28] MEDS: guaiFENesin 600 MG TABLET PO SCH ×2 (09:22→22:13)
[2018-12-28] MEDS: METOPROLOL SUCCINATE 25 MG TABLET PO SCH (09:22)
[2018-12-28] MEDS: METOPROLOL SUCCINATE 50 MG TABLET PO SCH ×2 (09:23→22:13)
[2018-12-28] MEDS: ENOXAPARIN 40 MG/0.4 ML SYRINGE SUBQ SCH (09:23)
[2018-12-28] MEDS: POLYETHYLENE GLYCOL 3350 17 GM PACKET PO SCH (09:23)
[2018-12-28] MEDS: CARBOXYMETHYLCELLULOSE OPHTH DROPS EACHEYE PRN (09:42)
[2018-12-28] MEDS: MELOXICAM 7.5 MG TABLET PO SCH (12:09)
[2018-12-28] MEDS: SODIUM CHLORIDE FLUSH 0.9% 10 ML SYRINGE IVP PRN (14:32)
--- NOTE | 2018-12-28 17:02 | MISCELLANEOUS PROVIDER NOTE ---
Miscellaneous Provider Note - - Note: Subjective: Patient feels somewhat better. Recently started on methotrexate 2 days ago rather and receives it qweekly. Patient is on oxygen however denies having home O2 at home. Denies diarrhea, joint swelling or maculopapular rash, GI or symptoms. Patient denies chest pain. Objective: Vital signs hemodynamically stable, Slightly hypertensive at 99% O2 saturation on 2 L nasal cannula General: Patient alert and oriented x3 no acute respiratory distress speaking in full sentences. Generalized weakness noted. Next breath HEENT: NCAT. Pupils are equal round react light and accommodation. No ptosis. No buccal lesions, Oropharynx clear. Neck: no JVD no bruits no lymphadenopathy CV/lungs: RRR. No murmurs. No gallops clicks or rubs. CTA BL Abdomen: Soft nontender nondistended positive bowel sounds all carcinoid symptoms of extremities/skin: No edema clubbing or cyanosis no maculopapular rashes. No joint effusions. Labs: Reviewed next Imaging studies: Reviewed Assessment/plan: (1) E. coli bacteremia Assessment/Plan: Patient is on day #5 of IV cefepime. Patient has had repeat blood cultures that are negative growth to date. Sensitivies are back and it is sensitive to Cephalosporins 3 sets of blood cultures are negative growth to date. Plan a 2 week course of treatment. (2) Bronchitis Assessment/Plan: Will order prn nebs and a course of iv steroids. (3) Cor pulmonale/Pulmonary HTN With associated hypoxemia requiring Supplemental oxygenation. Assessment/Plan: I suspect she may have Rheumatoid lung causing or adding to the Pulm HTN, Severe tricuspid regurgitation, with an ejection fraction 65-70% hyperdynamic, with right ventricular pressures that are elevated, RVSP severe @88 mmHg on Echo this admission, increased from 40 mmHg several years ago. Patient may have underlying sleep apnea. Patient has had intermittent wheezing and is on 2 L nasal cannula likely will require home O2 as this has underlying cor pulmonale signs and symptoms. We will obtain either a nighttime pulse oximetry and/or pulse ox at rest and on exertion. Patient may need physical therapy if patient is unable to ambulate with nursing or out of bed. Continue with as needed nebs along with IV steroids. (4) Elevated troponin Secondary to type II [place]/demand ischemia Assessment/Plan: Demand ischemia is suspected due to "flat" pattern of troponins. Patient's troponin trending have down trended. She will need Cardiology evaluation after bacteremia cleared. (5) DM type 2 (diabetes mellitus, type 2) Assessment/Plan: Cont carb-controlled diet and ss Insulin. (6) Anemia Qualifiers: Anemia type: iron deficiency Assessment/Plan: Continue with oral iron replacement. (7) Sepsis---Resolved Assessment/Plan: Secondary to E. coli bacteremia with 3 sets of blood cultures were repeated that are negative growth to date. Continues with IV cefepime Continue DVT/GI prophylaxis
[2018-12-28] MEDS ORDERED: SODIUM CHLORIDE 0.9% 1,000 ML IV ONE (22:09)
[2018-12-28] MEDS: ATORVASTATIN 10 MG TABLET PO SCH (22:12)
[2018-12-29] MEDS: SODIUM CHLORIDE FLUSH 0.9% 10 ML SYRINGE IVP SCH ×3 (00:36→17:23)
[2018-12-29 05:04] LABS: BASOPHILS % (AUTO) 0.2 %; HGB - HEMOGLOBIN 10.6 g/dL (12.0-16.0); LYMPHOCYTES # (AUTO) 0.5 10^3/uL (1.5-3.5); LYMPHOCYTES % (AUTO) 5.4 %; MEAN CORPUSCULAR HEMOGLOBIN 29.8 pg (27.0-31.0); MEAN CORPUSCULAR HGB CONC 32.9 g/dL (32.0-36.0); MEAN CORPUSCULAR VOLUME 90.5 fL (81.0-99.0); MEAN PLATELET VOLUME 7.5 fL (7.9-10.8); MONOCYTES # (AUTO) 0.3 10^3/uL (0.0-1.0); MONOCYTES % (AUTO) 3.1 %; NEUTROPHILS # (AUTO) 8.7 10^3/uL (1.5-6.6); NEUTROPHILS % (AUTO) 91.3 %; PLT - PLATELET COUNT 328 10^3/uL (130-450); RED BLOOD COUNT 3.56 10^6/uL (4.20-5.40); RED CELL DISTRIBUTION WIDTH 14.7 % (12.0-15.0); WHITE BLOOD COUNT 9.5 x10^3/uL (4.8-10.8)
[2018-12-29 05:11] LABS: CALCIUM 8.6 mg/dL (8.5-10.3); CREATININE 0.9 mg/dL (0.4-1.0)
[2018-12-29] MEDS: methylPREDNISolone SUCCINATE 40 MG/ML VIAL IVP SCH (06:19)
[2018-12-29] MEDS: PANTOPRAZOLE 40 MG TABLET PO SCH (06:19)
[2018-12-29] MEDS: INSULIN ASPART 300 UNIT/3 ML PEN SUBQ SCH ×4 (07:56→21:16)
[2018-12-29] MEDS: CEFEPIME 2 GM in SODIUM CHLORIDE 0.9% MINIBAG 100 ML IV SCH (07:56)
[2018-12-29] MEDS: sulfaSALAzine 500 MG TABLET PO SCH ×2 (09:12→17:24)
[2018-12-29] MEDS: DOCUSATE SODIUM 250 MG CAPSULE PO SCH (09:12)
[2018-12-29] MEDS: POTASSIUM CHLORIDE 10 MEQ CAPSULE PO SCH (09:12)
[2018-12-29] MEDS: FERROUS GLUCONATE 324 MG TABLET PO SCH (09:12)
[2018-12-29] MEDS: FOLIC ACID 1 MG TABLET PO SCH (09:12)
[2018-12-29] MEDS: ASPIRIN EC 81 MG TABLET PO SCH (09:12)
[2018-12-29] MEDS: METOPROLOL SUCCINATE 25 MG TABLET PO SCH (09:12)
[2018-12-29] MEDS: ENOXAPARIN 40 MG/0.4 ML SYRINGE SUBQ SCH (09:13)
[2018-12-29] MEDS: POLYETHYLENE GLYCOL 3350 17 GM PACKET PO SCH (09:13)
[2018-12-29] MEDS: guaiFENesin 600 MG TABLET PO SCH ×2 (09:13→21:18)
[2018-12-29] MEDS: METOPROLOL SUCCINATE 50 MG TABLET PO SCH ×2 (09:20→21:17)
[2018-12-29] MEDS: SODIUM CHLORIDE 0.9% 1,000 ML IV SCH (11:47)
[2018-12-29] MEDS: MELOXICAM 7.5 MG TABLET PO SCH (11:47)
--- NOTE | 2018-12-29 12:44 | MISCELLANEOUS PROVIDER NOTE ---
Miscellaneous Provider Note - - Note: Subjective: Patient With no acute respiratory issues is currently on 2.5 L and was evaluated by RT last night with less than 88% on room air for no more than 5 minutes with waxing and waning decreases and pulse ox 80s to low 90s. Patient denies chest pain, fevers, GI/ symptoms. Patient still has considerable generalized weakness as a result of her infection. Objective: Vital signs hemodynamically stable, Slightly hypertensive at 97% O2 saturation on 2.5 L nasal cannula General: Patient alert and oriented x3 no acute respiratory distress speaking in full sentences. Generalized weakness noted. Next breath HEENT: NCAT. Pupils are equal round react light and accommodation. No ptosis. No buccal lesions, Oropharynx clear. Neck: no JVD no bruits no lymphadenopathy CV/lungs: RRR. No murmurs. No gallops clicks or rubs. CTA BL Abdomen: Soft nontender nondistended positive bowel sounds all carcinoid symptoms of extremities/skin: No edema clubbing or cyanosis no maculopapular rashes. No joint effusions. Labs: Reviewed next Imaging studies: Reviewed Assessment/plan: (1) E. coli bacteremia Assessment/Plan: Patient is on day #6 of IV cefepime. Patient has had repeat blood cultures that are negative growth to date. Sensitivies are back and it is sensitive to Cephalosporins; Keflex 1 g p.o. twice daily for 9 days. 3 sets of blood cultures are negative growth to date. Plan a 2 week course of treatment. (2) Bronchitis Assessment/Plan: Will order prn nebs and Continuing with p.o. steroids. (3) Cor pulmonale/Pulmonary HTN With associated hypoxemia requiring Supplemental oxygenation. Assessment/Plan: I suspect she may have Rheumatoid lung causing or adding to the Pulm HTN, Severe tricuspid regurgitation, with an ejection fraction 65-70% hyperdynamic, with right ventricular pressures that are elevated, RVSP severe @88 mmHg on Echo this admission, increased from 40 mmHg several years ago. Patient likely has underlying sleep apnea by hypoxemia seen on nighttime pulse oximetry. RT order for clarification of home O2 at nighttime. Continue with nebs as needed as well as converting IV Solu-Medrol to oral steroids. (4) Elevated troponin Secondary to type II [place]/demand ischemia Assessment/Plan: Patient has not had any chest pain or palpitations or syncopal events throughout hospitalization. Demand ischemia is suspected due to "flat" pattern of troponins. Patient's troponin trending have down trended. She will need Cardiology evaluation after bacteremia cleared. (5) Rheumatoid arthritis Assessment/plan: Patient currently on methotrexate which will be every 2 weeks being administered. We will convert from IV Solu-Medrol to oral steroids. Patient was restarted as well at sulfasalazine. (6) DM type 2 (diabetes mellitus, type 2) Assessment/Plan: Control hyper glycemic excursions with insulin sliding scale bolus basal coverage. Cont carb-controlled diet. (7) Anemia Qualifiers: Anemia type: iron deficiency Assessment/Plan: Continue with oral iron replacement. (8) Sepsis---Resolved Assessment/Plan: Secondary to E. coli bacteremia with 3 sets of blood cultures were repeated that are negative growth to date. Patient has been D escalated now to Keflex1 g p.o. twice daily to continue for 9 days and a total antibiotics of 2 weeks. End Date 01/06 Patient has required more than 96 hours of inpatient hospitalization due to generalized weakness and continued medical management for E. coli bacteremia with de-escalation now to oral antibiotics to continue as well as possible physical therapy and qualification of home oxygen. Continue DVT/GI prophylaxis
[2018-12-29] MEDS: cephALEXin 250 MG CAPSULE PO SCH ×2 (14:12→21:17)
[2018-12-29] MEDS: metFORMIN 850 MG TABLET PO SCH (17:23)
[2018-12-29] MEDS: ATORVASTATIN 10 MG TABLET PO SCH (21:17)
[2018-12-30] MEDS: SODIUM CHLORIDE FLUSH 0.9% 10 ML SYRINGE IVP SCH ×2 (00:09→10:45)
[2018-12-30] MEDS: guaiFENesin 100 MG/5 ML UDC PO PRN (00:17)
[2018-12-30 05:40] LABS: BASOPHILS # (AUTO) 0.1 10^3/uL (0.0-0.1); BASOPHILS % (AUTO) 0.6 %; EOSINOPHILS # (AUTO) 0.2 10^3/uL (0.0-0.7); EOSINOPHILS % (AUTO) 2.1 %; HGB - HEMOGLOBIN 11.3 g/dL (12.0-16.0); LYMPHOCYTES # (AUTO) 2.1 10^3/uL (1.5-3.5); LYMPHOCYTES % (AUTO) 21.5 %; MEAN CORPUSCULAR HEMOGLOBIN 29.8 pg (27.0-31.0); MEAN CORPUSCULAR HGB CONC 32.9 g/dL (32.0-36.0); MEAN CORPUSCULAR VOLUME 90.7 fL (81.0-99.0); MEAN PLATELET VOLUME 7.2 fL (7.9-10.8); MONOCYTES # (AUTO) 0.8 10^3/uL (0.0-1.0); MONOCYTES % (AUTO) 8.1 %; NEUTROPHILS # (AUTO) 6.8 10^3/uL (1.5-6.6); NEUTROPHILS % (AUTO) 67.7 %; PLT - PLATELET COUNT 367 10^3/uL (130-450); RED BLOOD COUNT 3.79 10^6/uL (4.20-5.40); RED CELL DISTRIBUTION WIDTH 15.1 % (12.0-15.0)
[2018-12-30 05:46] LABS: CALCIUM 8.6 mg/dL (8.5-10.3); CREATININE 0.8 mg/dL (0.4-1.0)
[2018-12-30] MEDS: PANTOPRAZOLE 40 MG TABLET PO SCH (06:02)
[2018-12-30] MEDS: INSULIN ASPART 300 UNIT/3 ML PEN SUBQ SCH (07:38)
[2018-12-30] MEDS ORDERED: predniSONE 20 MG TABLET PO SCH (08:00)
[2018-12-30] MEDS: POLYETHYLENE GLYCOL 3350 17 GM PACKET PO SCH (10:34)
[2018-12-30] MEDS: DOCUSATE SODIUM 250 MG CAPSULE PO SCH (10:35)
--- NOTE | 2018-12-30 10:37 | Discharge Plan ---
Discharge Plan Disposition: Home, Self Care Condition: Good Prescriptions: Cephalexin [Keflex] 1,000 mg PO BID #44 capsule Codeine Phosphate/Guaifenesin [Guaifen-Codeine 200-20 mg/10Ml] 10 ml PO DAILY PM PRN #200 ml PRN Reason: Cough predniSONE [Deltasone] 20 mg PO DAILYWM #7 tablet Diet: Low Sodium Activity Restrictions: No Restrictions Shower Restrictions: No Driving Restrictions: No Assistance Devices: Walker (Patient has a home walker) Instruction Topics: E Coli Infec, Bronchitis Acute Dc, Pulmonary Fibrosis, Arthritis Rheumatoid Additional Instructions or Follow Up instructions: Patient to keep all appointments take all p.o. medications as prescribed. Patient likely has rheumatoid arthritis to the lungs with underlying pulmonary hypertension for which patient will need to follow-up with a elderly companion as a referral from PCP likely underlying sleep apnea which would also need a referral for a sleep study. Patient to continue supplemental oxygenation on exertion and at nighttime as needed. Patient to continue with a 7-day prednisone dosing for acute bronchitis as well as rheumatoid arthritis for which she will continue with methotrexate. Oral antibiotics with an end date of 01/10/19 for total time of 10 days. No Smoking: If you smoke, Please STOP! Call for help. Follow-up with: Debbie Corley PA-C [Primary Care Provider] - 2 Weeks (Follow-up with PCP in 1-2 weeks. Will likely need a referral from PCP to pulmonology for patient's underlying sleep apnea, pulmonary hypertension with cor pulmonale.)
[2018-12-30 10:38] VITALS: BP 166/57
[2018-12-30] MEDS: METOPROLOL SUCCINATE 25 MG TABLET PO SCH (10:38)
[2018-12-30] MEDS: METOPROLOL SUCCINATE 50 MG TABLET PO SCH (10:38)
[2018-12-30] MEDS: FOLIC ACID 1 MG TABLET PO SCH (10:39)
[2018-12-30] MEDS: guaiFENesin 600 MG TABLET PO SCH (10:39)
[2018-12-30] MEDS: POTASSIUM CHLORIDE 10 MEQ CAPSULE PO SCH (10:39)
[2018-12-30] MEDS: sulfaSALAzine 500 MG TABLET PO SCH (10:39)
[2018-12-30] MEDS: cephALEXin 250 MG CAPSULE PO SCH (10:40)
[2018-12-30] MEDS: FERROUS GLUCONATE 324 MG TABLET PO SCH (10:40)
[2018-12-30] MEDS: ASPIRIN EC 81 MG TABLET PO SCH (10:40)
--- NOTE | 2018-12-30 10:44 | DISCHARGE SUMMARY ---
Discharge Summary Admit Date: 12/24/18 Discharge Date: 12/30/18 Discharging Provider: Dr. Coronel Primary Care Provider: Debbie Corley Code Status: Attempt Resuscitation Condition at Discharge: Good Discharge Disposition: 01 Home, Self Care - DIAGNOSES Admission Diagnoses: (1) NSTEMI (non-ST elevated myocardial infarction) (2) Acute respiratory failure with hypoxia (3) Sepsis (4) UTI (urinary tract infection) (5) Diabetes mellitus type II, controlled (6) Hypertension (7) Hypercholesteremia (8) GERD (gastroesophageal reflux disease) (9) Rheumatoid arthritis (10) Acute kidney injury Discharge Diagnoses with Status of Each Condition: (1) E. coli bacteremia; Resolved (2) Acute respiratory failure with hypoxia with Acute Bronchitis; Stable and improved (3) Obstructive sleep apnea suspected/Cor pulmonale/Pulmonary HTN with associated hypoxemia requiring Supplemental oxygenation. Stable (4) Questionable NSTEMI (non-ST elevated myocardial infarction); Elevated troponin Secondary to type II [place]/demand ischemia. Stable (5) Rheumatoid arthritis; Stable (6) DM type 2 (diabetes mellitus, type 2); Stable (7) Anemia; Stable (8) Sepsis---Resolved (8) Hypertension; Stable (10) Hypercholesteremia; Stable (11) Acute kidney injury; Resolved (12) GERD (gastroesophageal reflux disease); Stable (13) UTI (urinary tract infection); Resolved - HPI History of Present Illness: Patient is a 68 y/o female who presented to the ED with complain of acute onset dyspnea, cold and shaking uncontrollably. She was found to be hypoxic upon presentation and placed on oxygen. She does not use oxygen at home. When she ambulates, her O2Sats drops to 88% even on 4L Nasal canula. She denies chest pain. She reports burning with urination. She denied abd pain,nausea, vomiting, fever or chills. The rest of her history was unremarkable. Work up included a UA which was suggestive of a UTI. CT Angio of the thorax was negative for a PE however it showed atherosclerosis and calcifications of cardiac vessels. Further work up of the dyspnea and hypoxia after admission included a troponin which came back at 1.23. - HOSPITAL COURSE Hospital Course: Patient is a 68-year-old female with a history of hypertension, type II diabetes mellitus, anemia who presented to the ED with complaints of acute onset dyspnea cold shaking uncontrollably and was found to be hypoxemic on presentation, Dyspnea on exertion when she ablates O2 sats dropped to 88% even on 4 L nasal cannula. Patient denied any chest pain. She reports burning with urination without CVA tenderness and denied abdominal pain nausea vomiting fevers or chills. The rest of the history was unremarkable and workup included a UA which was suggestive of a UTI with pyuria. CT Angio of the thorax was negative for PE however it showed atherosclerosis and calcifications of cardiac vessels. Patient was found to have 2 blood cultures growing E. coli uremia non-ESBL. And started on IV cefepime. Further workup of the dyspnea and hypoxia after admission including a troponin which came back at 1.23 and patient was deemed to have demand ischemia with EKG not showing adverse bundle branch blocks arrhythmias or ST T wave depressions or elevations. Patient initially thought to have an NSTEMI, Due to elevated troponin and was started on aspirin as well as an IV heparin drip with resulting troponins downtrending; after further review patient likely has a type II [place] with demand ischemia as a result of her hypoxemia and decreased perfusion to the myocardium. Patient did not show any consolidation on x-ray and was diagnosed with acute bronchitis for which she was managed with IV cefepime alongside concomitant treatment for UTI. E. coli bacteremia seen on 2 sets of blood cultures. With a repeat 3 sets of blood cultures showing negative growth to date. Patient was found to have iron deficiency anemia for which iron supplementation was given as well. Echocardiogram did not show motion wall abnormality with an echo showing 65-75% ejection Fraction with an RVSP of 88 mmHg with evidence of cor pulmonale with right ventricular elevated pressures to indicate moderate to severe pulmonary hypertension. No vegetations were seen on echocardiogram. Patient had also symptoms and signs of underlying sleep apnea with nocturnal hypoxemia which she did qualify for supplemental oxygen on exertion. Patient was Subsequently Descalated Keflex 1 g p.o. twice daily to continue for a total antibiotics of 2 weeks with end date on 01/10/19. Patient's type 2 diabetes mellitus was slightly uncontrolled due to the addition of IV Solu-Medrol and subsequently transitioned over to oral prednisone. Patient had mild exacerbation of left rheumatoid arthritis joint and metacarpophalangeal joints for which she did well on IV steroids and is now on oral prednisone. Patient patient was also restarted on her methotrexate as well as sulfasalazine that she takes at home. Anemia was stable with no evidence of bleeding and hemoglobin trended. Patient's sugars were controlled with correctional sliding scale and bolus coverage. Metformin was resumed. Patient was not hypoxic at rest with a room air oxygen sat of 96% with ambulation on room air she was hypoxic with O2 sat to 84%. With exertion on 2 L nasal cannula her O2 sats were 88% and finally on 3 L nasal cannula her O2 sats improved to 90%. I am ordering home O2, room air at rest, and 3 L/min with exertion to help treat her bronchitis, pulmonary hypertension, cor pulmonale and hypoxemia. Patient to follow-up with PCP in 1-2 weeks and likely should get a referral to a sleep study for diagnosis of underlying obstructive sleep apnea which likely has comorbidity and existing cor pulmonale with right ventricular elevated pressures as seen on her echocardiogram with moderate to severe pulmonary hypertension. Patient may benefit from tx with Revatio. - ALLERGIES Allergies/Adverse Reactions: Allergies Allergy/AdvReac Type Severity Reaction Status Date / Time No Known Drug Allergies Allergy Verified 12/23/18 22:19 - MEDICATIONS Home Medications: Ambulatory Orders Medication Instructions Recorded Confirmed Aspirin [Aspirin EC] 81 mg PO DAILY 12/24/18 12/24/18 Ferrous Gluconate 324 mg PO DAILY 12/24/18 12/24/18 Folic Acid 1 mg PO DAILY 12/24/18 12/24/18 Losartan [Cozaar] 100 mg PO QPM 12/24/18 12/24/18 Meloxicam 15 mg PO QDLUNCH 12/24/18 12/24/18 Metoprolol Succinate 100 mg PO BID 12/24/18 12/24/18 Omeprazole 20 mg PO DAILY 12/24/18 12/24/18 Potassium Chloride 10 meq PO DAILY 12/24/18 12/24/18 Simvastatin 40 mg PO QPM 12/24/18 12/24/18 Sitagliptin Phos/Metformin HCl 1 each PO DAILY 12/24/18 12/24/18 [Janumet Xr 100-1,000 mg Tablet] Methotrexate Sodium/Pf 45 mg IM SA@1700 12/26/18 12/26/18 [Methotrexate 50 mg/2 ml Vial] sulfaSALAzine [Azulfidine] 500 mg PO BIDWM 12/26/18 12/26/18 Cephalexin [Keflex] 1,000 mg PO BID #44 capsule 12/30/18 Codeine Phosphate/Guaifenesin 10 ml PO DAILY PM PRN #200 ml 12/30/18 [Guaifen-Codeine 200-20 mg/10Ml] predniSONE [Deltasone] 20 mg PO DAILYWM #7 tablet 12/30/18 - PHYSICAL EXAM AT DISCHARGE General Appearance: positive: No acute distress, Alert, Other (Mild generalized weakness) Eyes Bilateral: positive: Normal inspection, PERRL, EOMI ENT: positive: ENT inspection nml, Pharynx nml, No signs of dehydration Neck: positive: Nml inspection, Thyroid nml, No JVD, Trachea midline. negative: Thyromegaly Respiratory: positive: Chest non-tender, No respiratory distress, Breath sounds nml Cardiovascular: positive: Regular rate & rhythm, No murmur, No gallop Peripheral Pulses: positive: 2+ Abdomen: positive: Non-tender, No organomegaly, Nml bowel sounds, No distention. negative: Tenderness Back: positive: Nml inspection Skin: positive: Color nml, No rash, Warm Extremities: positive: Non-tender, Full ROM, Nml appearance Neurologic/Psychiatric: positive: Oriented x3, CN's nml (2-12) - LABS Result Diagrams: 12/30/18 05:25 12/30/18 05:25 - SEPSIS Current Stage of Sepsis: Resolved Possible source of Sepsis: Genitourinary Confirmed Source and Organism (if known) of Sepsis: E. coli bacteremia - QUALITY (Female Hip Fx Only) Was patient sent home on osteoporosis medication?: No - FOLLOW UP Follow Up: To follow-up with PCP in 1-2 weeks to make a referral to pulmonology for sleep study - TIME SPENT Time Spent in Discharge (Minutes): 35
[2018-12-30] MEDS: ENOXAPARIN 40 MG/0.4 ML SYRINGE SUBQ SCH (10:45)
[2018-12-30] MEDS: metFORMIN 850 MG TABLET PO SCH (10:49)
== END 2018-12-30 11:51 | disposition home or self-care (01) | DRG 871 ==
LOC: EDUNIT# → ED 22:09 → MS3 12-24 02:36
PROVIDERS: ADMIT Internal Medicine; ATTEND Family Medicine
DX: R09.02 Hypoxemia (principal); A41.51 Sepsis due to Escherichia coli [E. coli]; R00.0 Tachycardia, unspecified; J96.01 Acute respiratory failure with hypoxia; I21.A1 Myocardial infarction type 2; N30.00 Acute cystitis without hematuria; N17.9 Acute kidney failure, unspecified; J20.9 Acute bronchitis, unspecified; G47.33 Obstructive sleep apnea (adult) (pediatric); I27.81 Cor pulmonale (chronic); I27.20 Pulmonary hypertension, unspecified; M06.9 Rheumatoid arthritis, unspecified; E11.9 Type 2 diabetes mellitus without complications; D50.9 Iron deficiency anemia, unspecified; I10 Essential (primary) hypertension; E78.00 Pure hypercholesterolemia, unspecified; K21.9 Gastro-esophageal reflux disease without esophagitis; I25.10 Atherosclerotic heart disease of native coronary artery without angina pectoris; R35.1 Nocturia; R35.0 Frequency of micturition; F41.9 Anxiety disorder, unspecified; F40.240 Claustrophobia; Z96.659 Presence of unspecified artificial knee joint; Z90.710 Acquired absence of both cervix and uterus
CPT/HCPCS: 36415; 36600; 71045; 71275; 74177; 80048; 80053; 80202; 81001; 82272; 82607; 82746; 82803; 83036; 83540; 83605; 83690; 83735; 83880; 84100; 84443; 84466; 84484; 85025; 85027; 85520; 85730; 87040; 87181; 87275; 87276; 93005; 93306; 94640; 94664; 94761; 96361; 96374; 96375; 99284; A9270; J1650; J3370; J7512; J9250; Q9967; 81003; 87086; 99285

== ENCOUNTER 2019-01-15 08:00 | Outpatient (CLI) | payer MEDICARE, MEDICAID ==
[2019-01-15 14:09] LABS: BUN - BLOOD UREA NITROGEN 17 mg/dL (6-20); CALCIUM 9.3 mg/dL (8.5-10.3); CARBON DIOXIDE - CO2 22 mmol/L (21-32); CHLORIDE 108 mmol/L (101-111); CHOLESTEROL 204 mg/dL; CREATININE 0.8 mg/dL (0.4-1.0); GFR - MDRD 72 (>89); GLUCOSE 129 mg/dL (70-100); HDL CHOLESTEROL 51 mg/dL; LDL CHOLESTEROL,CALCULATED 130 mg/dL; LDL/HDL RATIO 2.5 (<4.4); SODIUM 140 mmol/L (135-145); VLDL CHOLESTEROL 23 mg/dL
[2019-01-15 14:16] LABS: HB2 TOTAL 13.6 g/dL; HEMOGLOBIN A1C 0.65 g/dL; HEMOGLOBIN A1C % 6.5 % (4.6-6.2)
== END 2019-01-15 23:59 | disposition home or self-care (01) ==
LOC: LAB.WCP 08:00
PROVIDERS: ATTEND Physician Assistant Medical
DX: E11.9 Type 2 diabetes mellitus without complications (principal)
CPT/HCPCS: 36415; 80048; 80061; 83036; 83721

== ENCOUNTER 2019-03-02 11:24 | Outpatient (CLI) | payer MEDICARE, MEDICAID | END 2019-03-02 11:25 | disposition home or self-care (01) | LOC: SC 11:24 | PROVIDERS: ATTEND Internal Medicine Pulmonary Disease | DX: G47.10 Hypersomnia, unspecified (principal); R41.89 Other symptoms and signs involving cognitive functions and awareness; G47.8 Other sleep disorders; R06.83 Snoring; I27.20 Pulmonary hypertension, unspecified; I25.2 Old myocardial infarction; E66.9 Obesity, unspecified; Z68.35 Body mass index [BMI] 35.0-35.9, adult | CPT/HCPCS: 99203; G0463; 99212 ==

== ENCOUNTER 2019-04-02 20:29 | Outpatient (CLI) | payer MEDICARE, MEDICAID | END 2019-04-02 20:30 | disposition home or self-care (01) | LOC: SC 20:29 | PROVIDERS: ATTEND Internal Medicine Pulmonary Disease | DX: G47.61 Periodic limb movement disorder (principal) | CPT/HCPCS: 95810 ==

== ENCOUNTER 2019-04-07 11:47 | Outpatient (CLI) | payer MEDICARE, MEDICAID ==
[2019-04-07 18:35] LABS: BASOPHILS # (AUTO) 0.1 10^3/uL (0.0-0.1); BASOPHILS % (AUTO) 0.9 %; EOSINOPHILS # (AUTO) 0.1 10^3/uL (0.0-0.7); EOSINOPHILS % (AUTO) 1.8 %; HGB - HEMOGLOBIN 13.1 g/dL (12.0-16.0); LYMPHOCYTES # (AUTO) 0.9 10^3/uL (1.5-3.5); LYMPHOCYTES % (AUTO) 12.2 %; MEAN CORPUSCULAR HEMOGLOBIN 29.9 pg (27.0-31.0); MEAN CORPUSCULAR HGB CONC 31.6 g/dL (32.0-36.0); MEAN CORPUSCULAR VOLUME 94.7 fL (81.0-99.0); MEAN PLATELET VOLUME 10.9 fL (7.9-10.8); MONOCYTES # (AUTO) 0.6 10^3/uL (0.0-1.0); MONOCYTES % (AUTO) 8.4 %; NEUTROPHILS # (AUTO) 5.4 10^3/uL (1.5-6.6); NEUTROPHILS % (AUTO) 76.4 %; PLT - PLATELET COUNT 242 10^3/uL (130-450); RED BLOOD COUNT 4.38 10^6/uL (4.20-5.40); RED CELL DISTRIBUTION WIDTH 14.6 % (12.0-15.0)
[2019-04-07 19:01] LABS: ALBUMIN 3.7 g/dL (3.2-5.5); ALBUMIN/GLOBULIN RATIO 1.9 (1.0-2.2); ALKALINE PHOSPHATASE 46 IU/L (42-121); ALT ALANINE AMINOTRANSFERASE 33 IU/L (10-60); AST ASPARTATE AMINOTRANSFERASE 35 IU/L (10-42); BUN - BLOOD UREA NITROGEN 13 mg/dL (6-20); CALCIUM 8.7 mg/dL (8.5-10.3); CARBON DIOXIDE - CO2 23 mmol/L (21-32); CHLORIDE 104 mmol/L (101-111); CREATININE 0.9 mg/dL (0.4-1.0); GFR - MDRD 62 (>89); GLUCOSE 212 mg/dL (70-100); SODIUM 137 mmol/L (135-145); TOTAL PROTEIN 5.7 g/dL (6.7-8.2)
[2019-04-07 19:36] LABS: CRP - C-REACTIVE PROTEIN < 1.0 mg/dL (0-1.0)
== END 2019-04-07 23:59 | disposition home or self-care (01) ==
LOC: LAB.WCP 11:47
PROVIDERS: ATTEND Internal Medicine Rheumatology
DX: M05.79 Rheumatoid arthritis with rheumatoid factor of multiple sites without organ or systems involvement (principal)
CPT/HCPCS: 36415; 80053; 85025; 85651; 86140

== ENCOUNTER 2019-04-27 | Outpatient (CLI) | payer MEDICARE, MEDICAID | END 2019-04-27 09:10 | disposition home or self-care (01) | DX: R09.02 Hypoxemia (principal) | CPT/HCPCS: 99215; G0463; 99212 ==

== ENCOUNTER 2019-05-07 11:21 | Observation (INO) | payer MEDICARE, MEDICAID ==
--- NOTE | 2019-05-07 12:27 | ED Physician Documentation ---
History of Present Illness - Stated complaint Stated Complaint: SOA/WEAKNESS - Chief complaint Chief Complaint: Resp - History obtained from History obtained from: Patient, Family - Additonal information Additional information: Patient is a 68-year-old female with history of NSTEMI, hypoxia, diabetes, hyperlipidemia, hypertension, GERD with hospitalization several months ago and subsequent cardiac work-up including stress test and sleep study presenting with persistent generalized fatigue and shortness of breath. Patient normally uses 3 L nasal cannula O2 at home and has not contacted her primary care physician about the need for possibly increasing this. Patient reports that she feels short of breath with exertion. Patient reports fleeting chest pressure on occasion although not today. Patient denies abdominal pain, nausea, vomiting, urinary or stool changes. Patient does report occasional cough, although not productive and without fever. No other improving or worsening factors noted. Review of Systems Constitutional: denies: Fever Cardiac: reports: Chest pain / pressure Respiratory: reports: Dyspnea, Cough GI: denies: Abdominal Pain, Nausea, Vomiting, Diarrhea : denies: Dysuria Neurologic: reports: Generalized weakness PD PAST MEDICAL HISTORY - Past Medical History Cardiovascular: Hypertension, High cholesterol Respiratory: None Endocrine/Autoimmune: Type 2 diabetes GI: GERD : Nocturia, Frequency Psych: Anxiety, Claustrophobia Musculoskeletal: Rheumatoid arthritis Derm: None - Past Surgical History Past Surgical History: No General: Colonoscopy Ortho: Knee replacement /[employer]ER: Hysterectomy - Present Medications Home Medications: Ambulatory Orders Medication Instructions Recorded Confirmed RX: Aspirin [Aspirin EC] 81 mg PO DAILY 12/24/18 05/07/19 RX: Ferrous Gluconate 324 mg PO DAILY 12/24/18 12/24/18 RX: Folic Acid 1 mg PO DAILY 12/24/18 12/24/18 RX: Meloxicam 15 mg PO QDLUNCH 12/24/18 05/07/19 RX: Metoprolol Succinate 150 mg PO BID 12/24/18 05/07/19 RX: Omeprazole 20 mg PO DAILY 12/24/18 12/24/18 RX: Potassium Chloride 10 meq PO DAILYWM 12/24/18 05/07/19 RX: Simvastatin 40 mg PO QPM 12/24/18 05/07/19 RX: Sitagliptin Phos/Metformin HCl 1 each PO DAILY 12/24/18 05/07/19 [Janumet Xr 100-1,000 mg Tablet] RX: sulfaSALAzine [Azulfidine] 1,000 mg PO BIDWM 12/26/18 05/07/19 Losartan Potassium [Cozaar] 100 mg PO QPM 05/07/19 05/07/19 - Allergies Allergies/Adverse Reactions: Allergies Allergy/AdvReac Type Severity Reaction Status Date / Time No Known Drug Allergies Allergy Verified 12/23/18 22:19 - Social History Does the pt smoke?: No Smoking Status: Never smoker Does the pt drink ETOH?: No Does the pt have substance abuse?: No PD ED PE NORMAL - Vitals Vital signs reviewed: Yes - General General: Alert and oriented X 3, No acute distress, Well developed/nourished - HEENT HEENT: Atraumatic, Moist mucous membranes - Neck Neck: Supple, no meningeal sign - Cardiac Cardiac: RRR, No murmur - Respiratory Respiratory: No respiratory distress, Clear bilaterally - Abdomen Abdomen: Soft, Non tender, Non distended - Derm Derm: Normal color, Warm and dry, No rash - Extremities Extremities: No deformity, No tenderness to palpate, No edema - Neuro Neuro: Alert and oriented X 3, No motor deficit, No sensory deficit - Psych Psych: Normal mood, Normal affect Results - Vitals Vitals: Vital Signs - 24 hr 05/07/19 05/07/19 05/07/19 11:35 12:15 15:43 Temperature 36.5 C Heart Rate 93 74 102 H Respiratory 20 14 18 Rate Blood Pressure 141/86 H 136/87 H 137/86 H O2 Saturation 90 L 98 97 Oxygen O2 Source Room air - EKG (time done) 1133 Rate: Rate (enter#) (100) Rhythm: NSR Ischemia: Non specific changes - Labs Labs: Laboratory Tests 05/07/19 05/07/19 05/07/19 11:33 13:15 13:15 WBC 8.0 RBC 4.38 Hgb 13.0 Hct 40.2 MCV 91.8 MCH 29.7 MCHC 32.3 RDW 15.4 H Plt Count 230 MPV 9.6 Neut # (Auto) 6.4 Lymph # (Auto) 0.9 L [place] # (Auto) 0.6 Eos # (Auto) 0.1 Baso # (Auto) 0.1 Absolute Nucleated RBC 0.00 Nucleated RBC % 0.0 VBG pH VBG pCO2 VBG pO2 VBG HCO3 VBG Total CO2 VBG O2 Saturation VBG Base Excess Sodium 135 Potassium 3.0 L Chloride 98 L Carbon Dioxide 22 Anion Gap 15.0 H BUN 15 Creatinine 1.0 Estimated GFR (MDRD) 55 L Glucose 141 H Calcium 8.4 L Total Bilirubin 1.1 H AST 35 ALT 29 Alkaline Phosphatase 49 Troponin I High Sens Total Protein 5.4 L Albumin 3.5 Globulin 1.9 L Albumin/Globulin Ratio 1.8 Lipase 43 Urine Color YELLOW Urine Clarity CLEAR Urine pH 6.5 Ur Specific [place] 1.010 Urine Protein 100 H Urine Glucose (UA) NEGATIVE Urine Ketones NEGATIVE Urine Occult Blood SMALL H Urine Nitrite NEGATIVE Urine Bilirubin NEGATIVE Urine Urobilinogen 0.2 (NORMAL) Ur Leukocyte Esterase NEGATIVE Urine RBC 0-5 Urine WBC 0-3 Ur Squamous Epith Cells NONE SEEN Urine Bacteria None Seen Urine Casts 0-2 Hyaline Casts Ur Microscopic Review INDICATED Urine Culture Comments NOT INDICATED 05/07/19 05/07/19 05/07/19 13:15 13:15 15:43 WBC RBC Hgb Hct MCV MCH MCHC RDW Plt Count MPV Neut # (Auto) Lymph # (Auto) [place] # (Auto) Eos # (Auto) Baso # (Auto) Absolute Nucleated RBC Nucleated RBC % VBG pH 7.441 H VBG pCO2 37.1 L VBG pO2 56.8 H VBG HCO3 24.7 VBG Total CO2 25.8 VBG O2 Saturation 89.0 H VBG Base Excess 0.8 Sodium 136 Potassium 3.4 L Chloride 99 L Carbon Dioxide 23 Anion Gap 14.0 H BUN 14 Creatinine 1.1 H Estimated GFR (MDRD) 50 L Glucose 121 H Calcium 8.1 L Total Bilirubin AST ALT Alkaline Phosphatase Troponin I High Sens 33.5 H* Total Protein Albumin Globulin Albumin/Globulin Ratio Lipase Urine Color Urine Clarity Urine pH Ur Specific [place] Urine Protein Urine Glucose (UA) Urine Ketones Urine Occult Blood Urine Nitrite Urine Bilirubin Urine Urobilinogen Ur Leukocyte Esterase Urine RBC Urine WBC Ur Squamous Epith Cells Urine Bacteria Urine Casts Ur Microscopic Review Urine Culture Comments PD MEDICAL DECISION MAKING - ED course Complexity details: reviewed old records, reviewed results, re-evaluated patient, considered differential, d/w patient, d/w family, d/w regional sales consultant ED course: Patient presenting with intermittent chest discomfort and rather consistent shortness of breath particularly with exertion. Patient already requires sup plemental oxygen at home. Physical exam otherwise is relatively unremarkable. Patient suffered from an end STEMI in the last several months and reportedly had cardiac work-up done which included stress test and echocardiogram. Patient does have known pulmonary issues, although not specifically diagnosed. Patient has had sleep study done but still requires further evaluation. EKG does not find evidence of new or acute ischemia, but troponin is elevated. At this time, patient is chest pain-free and has been in the ED. Patient received aspirin. Remainder of screening lab work and urinalysis returned relatively unremarkable. Chest x-ray did show chronic pulmonary edema changes which are relatively similar to prior. Do not feel patient is in an acute CHF or pulmonary edema episode.Spoke with hospitalist who is amenable to admission for further work-up and treatment. Patient and family are also amenable to this plan. Departure - Departure Disposition: ED Place in Observation Clinical Impression: Dyspnea Discharge Date/Time: 05/07/19 16:13
[2019-05-07] MEDS ORDERED: SODIUM CHLORIDE 0.9% 500 ML IV ONE (12:41)
[2019-05-07 12:58] LABS: GLUCOSE, URINE (UA) NEGATIVE (NEGATIVE); KETONES,URINE (UA) NEGATIVE (NEGATIVE); LEUKOCYTE ESTERASE, URINE NEGATIVE (NEGATIVE); NITRITE,URINE NEGATIVE (NEGATIVE); OCCULT BLOOD,URINE SMALL (NEGATIVE); PH,URINE 6.5 PH (5.0-7.5); PROTEIN,URINE 100 mg/dL (NEGATIVE); UROBILINOGEN,URINE 0.2 (NORMAL) E.U./dL (NORMAL)
[2019-05-07 13:00] LABS: BILIRUBIN,URINE NEGATIVE (NEGATIVE); CLARITY,URINE CLEAR (CLEAR); ICTOTEST,URINE NEGATIVE
[2019-05-07 13:07] LABS: BACTERIA,URINE None Seen /HPF (None Seen); CASTS, URINE 0-2 Hyaline Casts /LPF; RBC,URINE 0-5 /HPF (0-5); SQUAMOUS EPITHELIAL CELL,UR NONE SEEN (<= Few)
[2019-05-07 13:21] LABS: BASOPHILS # (AUTO) 0.1 10^3/uL (0.0-0.1); BASOPHILS % (AUTO) 0.9 %; EOSINOPHILS # (AUTO) 0.1 10^3/uL (0.0-0.7); EOSINOPHILS % (AUTO) 1.4 %; LYMPHOCYTES # (AUTO) 0.9 10^3/uL (1.5-3.5); LYMPHOCYTES % (AUTO) 10.6 %; MEAN CORPUSCULAR HEMOGLOBIN 29.7 pg (27.0-31.0); MEAN CORPUSCULAR HGB CONC 32.3 g/dL (32.0-36.0); MEAN CORPUSCULAR VOLUME 91.8 fL (81.0-99.0); MEAN PLATELET VOLUME 9.6 fL (7.9-10.8); MONOCYTES # (AUTO) 0.6 10^3/uL (0.0-1.0); MONOCYTES % (AUTO) 7.2 %; NEUTROPHILS # (AUTO) 6.4 10^3/uL (1.5-6.6); NEUTROPHILS % (AUTO) 79.3 %; PLT - PLATELET COUNT 230 10^3/uL (130-450); RED BLOOD COUNT 4.38 10^6/uL (4.20-5.40); RED CELL DISTRIBUTION WIDTH 15.4 % (12.0-15.0)
[2019-05-07 13:22] LABS: VBG BASE EXCESS 0.8 mmol/L (-2 - +2); VBG PCO2 37.1 mmHg (41-51); VBG PH 7.441 (7.31-7.41); VBG PO2 56.8 mmHg (25-47); VBG TOTAL CO2 25.8 mmol/L (24-29)
[2019-05-07 13:33] LABS: ALBUMIN 3.5 g/dL (3.2-5.5); ALBUMIN/GLOBULIN RATIO 1.8 (1.0-2.2); BILIRUBIN,TOTAL 1.1 mg/dL (0.2-1.0); CALCIUM 8.4 mg/dL (8.5-10.3); TOTAL PROTEIN 5.4 g/dL (6.7-8.2)
[2019-05-07] MEDS ORDERED: ASPIRIN CHEW 81 MG TABLET PO STA (14:03)
--- NOTE | 2019-05-07 15:03 | XRAY Report ---
Reason: cough Procedure Date: 05/07/2019 Accession Number: [id number] / [id number] Procedure: XR - Chest 2 View X-Ray CPT Code: 15071 FULL RESULT: EXAM: CHEST RADIOGRAPHY EXAM DATE: 05/07/2019 01:01 PM. CLINICAL HISTORY: Cough. COMPARISON: CHEST 1 VIEW 12/26/2018 2:43 AM. TECHNIQUE: 2 views. FINDINGS: Lungs/Pleura: Chronic appearing mild to moderate pulmonary edema and small bilateral pleural effusions with slight interval worsening since prior radiograph dated 12/26/2018. No focal opacities evident. No pneumothorax. Normal volumes. Mediastinum: Moderate stable cardiomegaly Other: None. IMPRESSION: Chronic mild to moderate pulmonary edema and small bilateral pleural effusions with slight interval worsening since 12 26 18. Moderate stable cardiomegaly. RADIA
[2019-05-07] MEDS ORDERED: oxyCODONE 5 MG TABLET PO PRN (15:31)
[2019-05-07] MEDS ORDERED: ONDANSETRON 4 MG/2 ML VIAL IVP PRN (15:31)
[2019-05-07] MEDS ORDERED: SODIUM CHLORIDE FLUSH 0.9% 10 ML SYRINGE IVP PRN (15:31)
[2019-05-07] MEDS ORDERED: ONDANSETRON ODT 4 MG TABLET TL PRN (15:31)
[2019-05-07] MEDS ORDERED: ACETAMINOPHEN 325 MG TABLET PO PRN (15:31)
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
[2019-05-07 15:57] LABS: CALCIUM 8.1 mg/dL (8.5-10.3); CREATININE 1.1 mg/dL (0.4-1.0)
[2019-05-07] MEDS ORDERED: FUROSEMIDE 20 MG/2 ML VIAL IVP STA (17:49)
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
[2019-05-07] MEDS: SODIUM CHLORIDE FLUSH 0.9% 10 ML SYRINGE IVP SCH (18:17)
[2019-05-07] MEDS: INSULIN ASPART 300 UNIT/3 ML PEN SUBQ SCH (21:39)
[2019-05-08] MEDS: SODIUM CHLORIDE FLUSH 0.9% 10 ML SYRINGE IVP SCH ×2 (00:10→10:12)
[2019-05-08] MEDS ORDERED: traZODone 50 MG TABLET PO SCH (00:38)
[2019-05-08] MEDS: IPRATROPIUM/ALBUTEROL 3 ML NEB INH PRN ×2 (01:44→07:58)
[2019-05-08] MEDS: INSULIN ASPART 300 UNIT/3 ML PEN SUBQ SCH (07:53)
[2019-05-08 08:04] VITALS: BP 115/62
[2019-05-08] MEDS ORDERED: POLYETHYLENE GLYCOL 3350 17 GM PACKET PO SCH (09:00)
[2019-05-08] MEDS ORDERED: ASPIRIN EC 81 MG TABLET PO SCH (09:00)
--- NOTE | 2019-05-08 09:18 | Discharge Plan ---
Discharge Plan Problem Reviewed?: Yes Disposition: Home, Self Care Condition: Fair Prescriptions: Furosemide [Lasix] 20 mg PO DAILY #30 tablet Potassium Chloride [Klor-Con] 20 meq PO DAILY #30 packet Diet: Cardiac Activity Restrictions: Activity as Tolerated Shower Restrictions: No Driving Restrictions: No Health Concerns: You came to our emergency room because you were having such severe shortness of breath and chest pressure you could not take it anymore. You give us a history of being short of breath for many many years now. But in November of this year you had a sudden worsening of your shortness of breath. At that time you had a small heart attack because your heart was working so hard not because you had a blocked artery. When you were seen in the emergency room, the doctor found you to have severe shortness of breath needing more oxygen. You have a little bit too much fluid in your lungs. And the blood test for heart attack were again mildly elevated. Plan of Treatment: 1. While here, we did serial blood test to make sure you are not having another heart attack. You are not. We think that your heart is working very hard and as such leaks out a little bit of enzyme that we can measure in your blood. We did speak to your tangled yarn worker who did your coronary angiogram March 18. He would like you to be on Lasix 20 mg a day. Because Lasix can curry out potassium through your kidneys, we are also starting you on a potassium tablet once a day. 2. You already have an appointment with a economic forecaster later this month to find out why you are so short of breath. Some of it is your heart, but you also have a disease called pulmonary hypertension. They are evaluating you for possible rheumatoid lung as well. 3. While here we realize that you need more oxygen you are getting at home. Usually you are on 2 to 3 L at home. We would like you to be at 4 L a minute when you are sitting. When you get up to do anything such as cooking, going to the bathroom, or reading in your backyard, go to 6 L a minute. 4. While here, we treated you with something called albuterol and Atrovent. We gave this medicine to you via a nebulizer. It really helps to breathe. However, your insurance company does not pay for that unless you have emphysema or asthma. We cannot prescribe it for you at this time. Care Goals: 1. Follow through with your referrals to pulmonology. This will become very important to decide if you have rheumatoid lung or not. 2. Because you have been deteriorating so quickly over the last year, you have become very sad and starting to realize that you may need to plan end-of-life care. We had a very long talk while you were in the hospital, your daughter was present. She, you, and your other children should get together to continue this conversation. You will need help with you go to down the road. Your children may need to help you more than what you are doing right now. 3. Make sure you see your primary care provider in follow-up in the next 1 to 2 weeks. Because we have started you on Lasix, Lasix can affect your kidneys and your potassium. Dr. Jimenez will need to do a BMP and a BNP. 4. While here, your glucose was controlled. I am asking you to make sure you are careful with your Janumet diabetes medication. Janumet has metformin. If you cannot eat, are very dehydrated, having diarrhea, do not take Janumet. It can cause lactic acidosis. 5. You have been losing weight because of your fatigue and shortness of breath. We talked about different things that you can do to improve your nutrition while not having to eat a lot of food. We discussed protein shakes. Or fruit smoothies with a scoop of protein in them. [employer] also cells clear protein drinks. The brand names are Premier protein clear protein drink, or liquid cell liquid protein 1 ounce packets, the liquid cell can be sugar-free. Drink one of these aday to boost your protein intake without having to eat a lot of food. Assessment: patient understands treatment and goals and agrees to follow thru No Smoking: If you smoke, Please STOP! Call for help. Follow-up with: Debbie Corley PA-C [Primary Care Provider] -
--- NOTE | 2019-05-08 16:17 | DISCHARGE SUMMARY ---
"Discharge Summary Admit Date: 05/07/19 Discharge Date: 05/08/19 Discharging Provider: Destiny Ma MD Primary Care Provider: FELIX Fernandez Code Status: Attempt Resuscitation Condition at Discharge: Fair Discharge Disposition: 01 Home, Self Care - DIAGNOSES Discharge Diagnoses with Status of Each Condition: 1. Abnormal troponin 2. Chest pain 3. Chronic respiratory failure with hypoxia 4. Type 2 diabetes mellitus, controlled, with complications, not on long-term use of insulin 5. Pulmonary hypertension, severe 6. Acute on chronic cor pulmonale - HPI History of Present Illness: This is a morbidly obese white female who has had a documented NSTEMI in November 2018 while here in our institution. Her risk factors continue to be obesity. She has high blood pressure, hyperlipidemia, pulmonary hypertension, and type 2 diabetes mellitus. Her echocardiogram at that time revealed no wall motion abnormalities with an ejection fraction of 65 to 70%. Severe pulmonary hypertension with an RVSP of 88 mmHg. She was seen by [facility], cardiology, March 04, 2019. Dr. Florentino from [facility], Cardiology, saw her. He took her to the [employer] [facility] on March 18 and she had mild nonobstructive coronary artery disease that was diffuse. Severe pulmonary hypertension. He wanted her on a low-dose diuretic, rosuvastatin particularly, and aspirin with her beta- cm. This unfortunate female also has mild obstructive sleep apnea and [place] them several times. She does not have obstructive sleep apnea. Her apnea hyponea index is low. But she does have severe restless leg syndrome which causes insomnia. She now presents with persistent generalized fatigue and shortness of breath. She has been short of breath for years now. In looking back at her encounter notes with her merchandising specialist is been close to a decade. But her shortness of breath has become insidiously worse. Last year she could work in the garden. She could go out and do simple weeding. Cutting her hernandez. She was still able to just get up out of bed, take a shower and get dressed and make food. By now, just getting up to go to the bathroom to urinate exhausts her. Showering in the morning is awful. She is so short of breath that closing the shower curtain in the shower area makes her feel incredibly claustrophobic and like she is dying or suffocating. She is recently resorted to taking the oxygen with her in the shower and it helps a little bit. She no longer goes outside because she's fearful she won't make it back into the house. She came significantly more short of breath in November 2018 when she presented with her UTI, shortness of breath and her STEMI. She usually uses 3 L nasal cannula at home and feels like she needs more. She became significantly more short of breath in November 2018 when she presented with her UTI, shortness of breath and her NSTEMI. Her merchandising specialist postulates that she may have rheumatoid lung. She is due to get a CT of the chest and is scheduled to see the rn shift mgr in the next couple of weeks. She feels like her dyspnea on exertion is worse than usual but really cannot quantify it. On admit it was severe. She has fleeting chest pressure. No orthopnea, mild leg edema. No jaw pain or arm pain. Exertion makes it worse. EKG has no acute ST-T wave changes. Her potassium was 3. Unfortunately her high- sensitivity troponin is 33.5. She most likely has that because of grade 1 di astolic dysfunction and nothing else. She is now brought in for serial cardiac enzymes at the request of her foreign exchange student coordinator. - CONSULTS | PROCEDURES Procedures: 1. Serial troponin I, high-sensitivity: 33.5, 32.7, 32.6 2. Chest Xray: Chronic mild to moderate pulmonary edema and small bilateral pleural effusions with slight interval worsening since December 26, 2018. Moderate stable cardiomegaly. 3. Advanced Care Planning Conversation. - HOSPITAL COURSE Hospital Course: Serial cardiac enzymes remained stable. At this time she most likely has enzyme bump from her cor pulmonale and pulmonary hypertension not from true ischemia. Because of the changes of fluid overload on chest, I gave her 20 mg of Lasix IV push. I the following morning she was breathing much better. She still sits crosslegged, slightly tripod, but her ability to complete sentences and her ability to get out of bed and go to a bedside commode was much better tolerated. She says that DuoNeb really, really helped her shortness of breath and loosened her chest. As such I have prescribed durable medical equipment for nebulizer treatment with DuoNeb. It may take a couple of days to get to her house. She already uses home oxygen. She uses 3 L/min nasal cannula through [facility]. We retested her. She is hypoxic at rest with room air saturations of 80%. At rest on 2 L nasal cannula her oxygen was 85%. On 3 L nasal cannula she was 88%. Finally on 4 L nasal cannula her resting O2 sats improved to 90%. With ambulation on 3 L nasal cannula, her O2 sats were 84%. On 4 L/min ambulation resulted in an 85% saturation. She was finally able to achieve an O2 sat of 91% with exertion when we upped her oxygen to 6 L/min. I am updating her oxygen orders to be 4 L/min at rest, 6 L/min with exertion. I am also ordering an oxygen conserving device to help patient with mobility issues using oxygen and improve compliance. I am also ordering the above home nebulizer machine to administer bronchodilators. These are all needed to treat her pulmonary hypertension, chronic congestive heart failure, hypoxia and dyspnea. I am asking her to make sure she has close follow-up with pulmonology regarding her lung disease. Please see cardiology in follow-up for the use of the Lasix. I am adding potassium to her discharge medications as well. Advanced care planning conversation was had because this woman seems to be failing pre cipitously. At this rate, she may not be with this in the next 1 to 2 years. She and her family will be starting advanced care planning conversations among themselves.She is starting to lose noticeable weight because she is too exhausted to eat and has no appetite. Eats 2 bites and she's done. I am recommending she start a clear liquid protein shot that she can buy at [employer] to add to her daily diet. - ALLERGIES Allergies/Adverse Reactions: Allergies Allergy/AdvReac Type Severity Reaction Status Date / Time No Known Drug Allergies Allergy Verified 12/23/18 22:19 - MEDICATIONS Home Medications: Ambulatory Orders Medication Instructions Recorded Confirmed Aspirin [Aspirin EC] 81 mg PO DAILY 12/24/18 05/07/19 Ferrous Gluconate 324 mg PO DAILY 12/24/18 05/08/19 Folic Acid 1 mg PO DAILY 12/24/18 05/08/19 Meloxicam 15 mg PO QDLUNCH 12/24/18 05/07/19 Metoprolol Succinate 150 mg PO BID 12/24/18 05/07/19 Potassium Chloride 10 meq PO DAILYWM 12/24/18 05/07/19 Simvastatin 40 mg PO QPM 12/24/18 05/07/19 Sitagliptin Phos/Metformin HCl 1 each PO DAILY 12/24/18 05/07/19 [Janumet Xr 100-1,000 mg Tablet] sulfaSALAzine [Azulfidine] 1,000 mg PO BIDWM 12/26/18 05/07/19 Losartan Potassium [Cozaar] 100 mg PO QPM 05/07/19 05/07/19 Furosemide [Lasix] 20 mg PO DAILY #30 tablet 05/08/19 Potassium Chloride [Klor-Con] 20 meq PO DAILY #30 packet 05/08/19 - PHYSICAL EXAM AT DISCHARGE General Appearance: positive: Alert, Mild distress Eyes Bilateral: positive: PERRL ENT: positive: Pharynx nml Neck: positive: No JVD. negative: Stiff neck Respiratory: positive: Chest non-tender, Rales. negative: Wheezes, Rhonchi Cardiovascular: positive: Regular rate & rhythm, Systolic murmur. negative: Gallop/S4, Friction rub Peripheral Pulses: positive: 1+ Abdomen: positive: Non-tender, No organomegaly, Nml bowel sounds, No distention Skin: positive: Warm, Dry Extremities: positive: No pedal edema Neurologic/Psychiatric: positive: Oriented x3, CN's nml (2-12), Motor nml - LABS Result Diagrams: 05/07/19 13:15 05/07/19 15:43"
== END 2019-05-08 11:50 | disposition home or self-care (01) ==
LOC: ED 11:21 → MS3 15:52
PROVIDERS: ADMIT Specialist; ATTEND Specialist
DX: R79.89 Other specified abnormal findings of blood chemistry (principal); R07.89 Other chest pain; J96.11 Chronic respiratory failure with hypoxia; I27.81 Cor pulmonale (chronic); I11.0 Hypertensive heart disease with heart failure; I50.32 Chronic diastolic (congestive) heart failure; E11.42 Type 2 diabetes mellitus with diabetic polyneuropathy; I27.20 Pulmonary hypertension, unspecified; J98.4 Other disorders of lung; E78.5 Hyperlipidemia, unspecified; I25.10 Atherosclerotic heart disease of native coronary artery without angina pectoris; E66.01 Morbid (severe) obesity due to excess calories; R63.4 Abnormal weight loss; R63.0 Anorexia; G47.33 Obstructive sleep apnea (adult) (pediatric); G25.81 Restless legs syndrome; G47.01 Insomnia due to medical condition; F40.240 Claustrophobia; F32.9 Major depressive disorder, single episode, unspecified; F41.9 Anxiety disorder, unspecified; M06.9 Rheumatoid arthritis, unspecified; M81.0 Age-related osteoporosis without current pathological fracture; K21.9 Gastro-esophageal reflux disease without esophagitis; I25.2 Old myocardial infarction; Z99.81 Dependence on supplemental oxygen; Z68.33 Body mass index [BMI] 33.0-33.9, adult; Z79.82 Long term (current) use of aspirin; Z79.899 Other long term (current) drug therapy; Z79.84 Long term (current) use of oral hypoglycemic drugs; Z87.891 Personal history of nicotine dependence
CPT/HCPCS: 36415; 71046; 80048; 80053; 81001; 82803; 83690; 84484; 85025; 93005; 94640; 94761; 96361; 96374; 99284; 99285; A9270; G0378; 81003; 87086

== ENCOUNTER 2019-06-14 08:00 | Outpatient (CLI) | payer MEDICARE, MEDICAID ==
[2019-06-14 18:26] LABS: BASOPHILS % (AUTO) 0.5 %; EOSINOPHILS % (AUTO) 0.2 %; HGB - HEMOGLOBIN 11.8 g/dL (12.0-16.0); LYMPHOCYTES # (AUTO) 0.9 10^3/uL (1.5-3.5); LYMPHOCYTES % (AUTO) 10.3 %; MEAN CORPUSCULAR HEMOGLOBIN 30.3 pg (27.0-31.0); MEAN CORPUSCULAR HGB CONC 31.6 g/dL (32.0-36.0); MEAN CORPUSCULAR VOLUME 95.9 fL (81.0-99.0); MEAN PLATELET VOLUME 10.3 fL (7.9-10.8); MONOCYTES # (AUTO) 0.7 10^3/uL (0.0-1.0); MONOCYTES % (AUTO) 7.7 %; NEUTROPHILS # (AUTO) 6.8 10^3/uL (1.5-6.6); NEUTROPHILS % (AUTO) 80.7 %; PLT - PLATELET COUNT 169 10^3/uL (130-450); RED BLOOD COUNT 3.89 10^6/uL (4.20-5.40); RED CELL DISTRIBUTION WIDTH 18.8 % (12.0-15.0); WHITE BLOOD COUNT 8.4 x10^3/uL (4.8-10.8)
[2019-06-14 18:44] LABS: % IRON SATURATION 17 % (20-50); ALBUMIN 3.3 g/dL (3.2-5.5); ALBUMIN/GLOBULIN RATIO 1.6 (1.0-2.2); ALKALINE PHOSPHATASE 104 IU/L (42-121); ALT ALANINE AMINOTRANSFERASE 29 IU/L (10-60); AST ASPARTATE AMINOTRANSFERASE 41 IU/L (10-42); BUN - BLOOD UREA NITROGEN 32 mg/dL (6-20); CALCIUM 8.5 mg/dL (8.5-10.3); CARBON DIOXIDE - CO2 20 mmol/L (21-32); CHLORIDE 100 mmol/L (101-111); CHOL/HDL RATIO 2.6 (<4.4); CHOLESTEROL 100 mg/dL; CREATININE 1.5 mg/dL (0.4-1.0); GFR - MDRD 35 (>89); GLUCOSE 121 mg/dL (70-100); HDL CHOLESTEROL 38 mg/dL; IRON 51 ug/dL (28-170); LDL CHOLESTEROL,CALCULATED 43 mg/dL; LDL/HDL RATIO 1.1 (<4.4); SODIUM 134 mmol/L (135-145); TOTAL IRON BINDING CAPACITY 300 ug/dL (250-450); TOTAL PROTEIN 5.4 g/dL (6.7-8.2); TRANSFERRIN 214 mg/dL (192-382); VLDL CHOLESTEROL 19 mg/dL
[2019-06-14 18:50] LABS: HB2 TOTAL 12.5 g/dL; HEMOGLOBIN A1C 0.55 g/dL; HEMOGLOBIN A1C % 6.2 % (4.6-6.2)
== END 2019-06-14 23:59 | disposition home or self-care (01) ==
LOC: LAB.WCP 08:00
PROVIDERS: ATTEND Physician Assistant Medical
DX: E11.9 Type 2 diabetes mellitus without complications (principal); D64.9 Anemia, unspecified
CPT/HCPCS: 36415; 80053; 80061; 82728; 83036; 83540; 83721; 84466; 85025

== ENCOUNTER 2019-06-20 13:48 | Emergency (ER) | payer MEDICARE, MEDICAID ==
[2019-06-20] MEDS ORDERED: SODIUM CHLORIDE 0.9% 1,000 ML IV ONE (14:12)
[2019-06-20] MEDS ORDERED: SODIUM CHLORIDE 0.9% 500 ML IV ONE ×2 (14:12→15:10)
[2019-06-20] MEDS ORDERED: PROMETHAZINE INJ 25 MG in SODIUM CHLORIDE 0.9% 50 ML IV STA (14:13)
--- NOTE | 2019-06-20 14:15 | ED Physician Documentation ---
History of Present Illness - Stated complaint Stated Complaint: ABD PX/UNABLE TO EAT OR DRINK - Chief complaint Chief Complaint: General - History obtained from History obtained from: Patient, Family - History of Present Illness Timing: How many days ago (2-3) Pain level max: 3 Pain level now: 2 - Additonal information Additional information: 68-year-old female presents to the emergency department complaint of nausea and vomiting for the past 2 days. She states that she has had diarrhea as well as constipation. She states that she just does not want to eat or drink anymore. No fevers. Nothing makes it better or worse. Took Zofran without relief. Has a history of pulmonary hypertension and is on oxygen 21/04 at home. She is seeing a human resources designate and distribution engineer for her lungs. She does not have any difficulty breathing today. No chest pain. She states she feels tired and weak. Review of Systems Constitutional: denies: Fever, Chills Nose: denies: Rhinorrhea / runny nose, Congestion Throat: denies: Sore throat Cardiac: denies: Chest pain / pressure Respiratory: denies: Cough Skin: denies: Rash Musculoskeletal: denies: Neck pain, Back pain Neurologic: denies: Headache PD PAST MEDICAL HISTORY - Past Medical History Past Medical History: Yes Cardiovascular: Hypertension, High cholesterol Respiratory: None Neuro: Other (Periodic Limb movement disorder) Endocrine/Autoimmune: Type 2 diabetes GI: GERD DRUG AND ALCOHOL COUNSELLOR: Other () : Nocturia, Frequency HEENT: None Psych: Anxiety, Claustrophobia Musculoskeletal: Rheumatoid arthritis Derm: None - Past Surgical History Past Surgical History: No General: Colonoscopy Ortho: Knee replacement /DRUG AND ALCOHOL COUNSELLOR: Hysterectomy - Present Medications Home Medications: Ambulatory Orders Medication Instructions Recorded Confirmed Aspirin [Aspirin EC] 81 mg PO DAILY 12/24/18 06/20/19 Ferrous Gluconate 324 mg PO DAILY 12/24/18 06/20/19 Folic Acid 1 mg PO DAILY 12/24/18 06/20/19 Meloxicam 15 mg PO QDLUNCH 12/24/18 06/20/19 Metoprolol Succinate 150 mg PO BID 12/24/18 06/20/19 Potassium Chloride 10 meq PO DAILYWM 12/24/18 06/20/19 Sitagliptin Phos/Metformin HCl 1 each PO DAILY 12/24/18 06/20/19 [Janumet Xr 100-1,000 mg Tablet] sulfaSALAzine [Azulfidine] 1,000 mg PO BIDWM 12/26/18 06/20/19 Losartan Potassium [Cozaar] 100 mg PO QPM 05/07/19 06/20/19 Fluticasone Propion/Salmeterol 1 puffs IH DAILY 06/20/19 06/20/19 [Fluticasone-Salmeterol 500-50] Omeprazole 20 mg PO DAILY 06/20/19 06/20/19 Ondansetron Odt [Zofran Odt] 4 mg PO DAILY 06/20/19 06/20/19 Promethazine [Phenergan] 25 mg PO Q6H PRN #10 tab 06/20/19 Rosuvastatin Calcium 40 mg PO DAILY 06/20/19 06/20/19 - Allergies Allergies/Adverse Reactions: Allergies Allergy/AdvReac Type Severity Reaction Status Date / Time No Known Drug Allergies Allergy Verified 12/23/18 22:19 - Social History Does the pt smoke?: No Smoking Status: Never smoker Does the pt drink ETOH?: No Does the pt have substance abuse?: No - POLST Patient has POLST: No POLST Status: Full Code PD ED PE NORMAL - Vitals Vital signs reviewed: Yes - General General: Alert and oriented X 3, No acute distress - HEENT HEENT: Moist mucous membranes - Neck Neck: Supple, no meningeal sign - Cardiac Cardiac: RRR - Respiratory Respiratory: No respiratory distress, Other (Diminished breath sounds bilaterally) - Abdomen Abdomen: Soft, Non tender, Non distended - Derm Derm: Warm and dry - Extremities Extremities: No calf tenderness / cord - Neuro Neuro: Alert and oriented X 3 Results - Vitals Vitals: Vital Signs - 24 hr 06/20/19 06/20/19 06/20/19 13:55 14:40 15:19 Temperature 35.2 C L Heart Rate 81 80 85 Respiratory 18 18 24 Rate Blood Pressure 96/71 125/85 H 148/110 H O2 Saturation 96 98 96 06/20/19 16:44 Temperature 36.2 C L Heart Rate 87 Respiratory 20 Rate Blood Pressure 133/86 H O2 Saturation 93 Oxygen O2 Source Nasal cannula - Labs Labs: Laboratory Tests 06/20/19 06/20/19 06/20/19 14:40 14:40 15:30 WBC 8.2 RBC 4.14 L Hgb 12.6 Hct 40.4 MCV 97.6 MCH 30.4 MCHC 31.2 L RDW 20.4 H Plt Count 180 MPV 10.2 Neut # (Auto) 6.7 H Lymph # (Auto) 0.8 L [place] # (Auto) 0.6 Eos # (Auto) 0.0 Baso # (Auto) 0.1 Absolute Nucleated RBC 0.00 Nucleated RBC % 0.0 Manual Slide Review Indicated Platelet Estimate NORMAL (130-450,000) Platelet Morphology NORMAL APPEARANCE RBC Morph Micro Appear 1+ TEODORO CELLS Sodium 136 Potassium 4.2 Chloride 103 Carbon Dioxide 19 L Anion Gap 14.0 H BUN 39 H Creatinine 1.8 H Estimated GFR (MDRD) 28 L Glucose 109 H Calcium 9.2 Total Bilirubin 1.5 H AST 49 H ALT 33 Alkaline Phosphatase 125 H Total Protein 5.7 L Albumin 3.4 Globulin 2.3 Albumin/Globulin Ratio 1.5 Lipase 42 Urine Color YELLOW Urine Clarity CLEAR Urine pH 5.5 Ur Specific [place] 1.025 Urine Protein 100 H Urine Glucose (UA) NEGATIVE Urine Ketones TRACE Urine Occult Blood TRACE-INTA Urine Nitrite NEGATIVE Urine Bilirubin NEGATIVE Urine Urobilinogen 0.2 (NORMAL) Ur Leukocyte Esterase NEGATIVE Urine RBC 0-5 Urine WBC 4-5 Ur Squamous Epith Cells FEW Squamous Urine Bacteria Few Urine Casts 3-5 Granular Casts Urine Mucus Few Strands Ur Microscopic Review INDICATED Urine Culture Comments NOT INDICATED - Rads (name of study) CT abd/pelvis Radiology: Prelim report reviewed, EMP read contemporaneously, See rad report (1. Nonspecific mild hepatomegaly. 2. Small volume ascites. 3. Mild generalized subcutaneous edema. 4. Mild bibasal interstitial opacity, hypoventilatory versus mild edema or infiltrate. 5. Other findings as noted above. ) PD MEDICAL DECISION MAKING - ED course Complexity details: reviewed results, re-evaluated patient, considered differential, d/w patient, d/w family ED course: 68-year-old female presents the emergency department nausea and vomiting for the past 2 days. She appears to have a mild acute kidney injury and dehydration. Feels much better after IV fluids. Was given Phenergan IV and is tolerating p.o. without any difficulty. No recurrent vomiting. States that she feels much better. She does have a small volume ascites on her CT scan, unclear etiology. There is not enough ascites for paracentesis today. We will have her follow- up closely with her doctor for further evaluation. Patient and family counseled regarding signs and symptoms for which I believe and urgent re-evaluation would be necessary. Patient with good understanding of and agreement to plan and is comfortable going home at this time This document was made in part using voice recognition software. While efforts are made to proofread this document, sound alike and grammatical errors may occur. Departure - Departure Disposition: 01 Home, Self Care Clinical Impression: Dehydration Ascites Qualifiers: Ascites type: other type Qualified Code(s): R18.8 - Other ascites Vomiting Qualifiers: Vomiting type: unspecified Vomiting Intractability: non-intractable Nausea presence: with nausea Qualified Code(s): R11.2 - Nausea with vomiting, unspecified Condition: Good Instructions: ED Dehydration, ED Nausea Vomiting Follow-Up: Debbie Corley PA-C [Primary Care Provider] - 06/24/19 Prescriptions: Promethazine [Phenergan] 25 mg PO Q6H PRN #10 tab PRN Reason: Nausea / Vomiting Comments: Follow up with your doctor for further care. Return if you worsen. You do have ascites (fluid in your abdomen) and the cause of this is unclear today. It should be further evaluated by your doctor.
[2019-06-20 14:48] LABS: BASOPHILS # (AUTO) 0.1 10^3/uL (0.0-0.1); BASOPHILS % (AUTO) 0.7 %; EOSINOPHILS % (AUTO) 0.5 %; HGB - HEMOGLOBIN 12.6 g/dL (12.0-16.0); LYMPHOCYTES # (AUTO) 0.8 10^3/uL (1.5-3.5); MEAN CORPUSCULAR HEMOGLOBIN 30.4 pg (27.0-31.0); MEAN CORPUSCULAR HGB CONC 31.2 g/dL (32.0-36.0); MEAN CORPUSCULAR VOLUME 97.6 fL (81.0-99.0); MEAN PLATELET VOLUME 10.2 fL (7.9-10.8); MONOCYTES # (AUTO) 0.6 10^3/uL (0.0-1.0); MONOCYTES % (AUTO) 7.5 %; NEUTROPHILS # (AUTO) 6.7 10^3/uL (1.5-6.6); NEUTROPHILS % (AUTO) 80.7 %; PLT - PLATELET COUNT 180 10^3/uL (130-450); RED BLOOD COUNT 4.14 10^6/uL (4.20-5.40); RED CELL DISTRIBUTION WIDTH 20.4 % (12.0-15.0); WHITE BLOOD COUNT 8.2 x10^3/uL (4.8-10.8)
[2019-06-20 14:58] LABS: ALBUMIN 3.4 g/dL (3.2-5.5); ALBUMIN/GLOBULIN RATIO 1.5 (1.0-2.2); BILIRUBIN,TOTAL 1.5 mg/dL (0.2-1.0); CALCIUM 9.2 mg/dL (8.5-10.3); CREATININE 1.8 mg/dL (0.4-1.0); TOTAL PROTEIN 5.7 g/dL (6.7-8.2)
[2019-06-20] MEDS ORDERED: MORPHINE 2 MG/ML CARPUJECT IVP STA (15:10)
[2019-06-20 15:26] LABS: PLATELET ESTIMATE, MANUAL NORMAL (130-450,000) (NORMAL); PLATELET MORPHOLOGY NORMAL APPEARANCE (NORMAL)
[2019-06-20 15:58] LABS: BILIRUBIN,URINE NEGATIVE (NEGATIVE); GLUCOSE, URINE (UA) NEGATIVE (NEGATIVE); KETONES,URINE (UA) TRACE mg/dL (NEGATIVE); LEUKOCYTE ESTERASE, URINE NEGATIVE (NEGATIVE); NITRITE,URINE NEGATIVE (NEGATIVE); OCCULT BLOOD,URINE TRACE-INTA (NEGATIVE); PH,URINE 5.5 PH (5.0-7.5); PROTEIN,URINE 100 mg/dL (NEGATIVE); UROBILINOGEN,URINE 0.2 (NORMAL) E.U./dL (NORMAL)
[2019-06-20 16:02] LABS: CLARITY,URINE CLEAR (CLEAR)
[2019-06-20 16:05] LABS: BACTERIA,URINE Few /HPF (None Seen); MUCUS,URINE Few Strands; RBC,URINE 0-5 /HPF (0-5); SQUAMOUS EPITHELIAL CELL,UR FEW Squamous (<= Few)
--- NOTE | 2019-06-20 16:17 | CT Report ---
Reason: abd pain, vomiting Procedure Date: 06/20/2019 Accession Number: [id number] / [id number] Procedure: CT - Abdomen/Pelvis WO CPT Code: FULL RESULT: EXAM: CT ABDOMEN AND PELVIS EXAM DATE: 06/20/2019 03:33 PM. CLINICAL HISTORY: Abd pain, vomiting. COMPARISONS: ABDOMEN/PELVIS W/ 12/25/2018 10:12 AM. TECHNIQUE: Routine helical CT imaging was performed through the abdomen and pelvis. IV contrast: None. Enteric contrast: None. Reconstructions: Coronal and sagittal. In accordance with CT protocol optimization, one or more of the following dose reduction techniques were utilized for this exam: automated exposure control, adjustment of mA and/or KV based on patient size, or use of iterative reconstructive technique. FINDINGS: Lung Bases: Mild bibasal interstitial opacity, hypoventilatory versus mild edema or infiltrate. Liver: Mild hepatomegaly. No focal liver lesion is evident. Gallbladder/Bile Ducts: Unremarkable. Spleen: Diminutive spleen. Pancreas: Normal. Adrenal Glands: Normal. Kidneys: Normal. No masses or hydronephrosis. Peritoneal Cavity/Bowel: Increased small-volume ascites. No free air. No pathologic lymphadenopathy. Scattered primarily sigmoid colonic diverticula. Areas of colonic nondistention degrade evaluation for wall thickening. No masses or acute inflammatory process. Appendix not clearly visualized; no pericecal inflammatory changes are evident. Pelvic Organs: Uterus absent urinary bladder minimally distended and grossly unremarkable. Vasculature: No aneurysms or other significant abnormality. Bones: Similar probable degenerative left periacetabular subchondral cystic change. Multilevel lumbar degeneration. No acute fracture or suspicious bony lesion otherwise. Other: Mild generalized subcutaneous edema. IMPRESSION: 1. Nonspecific mild hepatomegaly. 2. Small volume ascites. 3. Mild generalized subcutaneous edema. 4. Mild bibasal interstitial opacity, hypoventilatory versus mild edema or infiltrate. 5. Other findings as noted above. [facility]
[2019-06-20 16:45] VITALS: BP 133/86
== END 2019-06-20 17:01 | disposition home or self-care (01) ==
LOC: ED 13:48
DX: E86.0 Dehydration (principal); R18.8 Other ascites; R11.2 Nausea with vomiting, unspecified; E11.9 Type 2 diabetes mellitus without complications; I10 Essential (primary) hypertension
CPT/HCPCS: 36415; 51701; 74176; 80053; 81001; 83690; 85025; 96361; 96365; 96375; 99284; J7040; 81003; 85610; 85730; 87086

== ENCOUNTER 2019-06-24 04:30 | Outpatient (CLI) | payer MEDICARE, MEDICAID | END 2019-06-24 04:31 | disposition critical access hospital (66) | LOC: EMS 04:30 | PROVIDERS: ATTEND Surgery | DX: R06.00 Dyspnea, unspecified (principal); R10.9 Unspecified abdominal pain; R11.0 Nausea | CPT/HCPCS: A0425; A0427 ==

== ENCOUNTER 2019-06-24 04:49 | Emergency (ER) | payer MEDICARE, MEDICAID ==
[2019-06-24] MEDS ORDERED: ONDANSETRON 4 MG/2 ML VIAL IVP STA ×2 (05:04→14:14)
[2019-06-24] MEDS ORDERED: HYDROmorphone 1 MG/ML CARPUJECT IVP STA (05:04)
--- NOTE | 2019-06-24 05:04 | ED Physician Documentation ---
PD HPI ABD PAIN - Stated complaint Stated Complaint: SOA, ABD PAIN - History obtained from History obtained from: Patient, Family, EMS - History of Present Illness Timing - onset: Today Timing - duration: Hours Timing - details: Abrupt onset Quality: Pain Location: Epigastric Associated symptoms: Nausea, Constipation. No: Fever, Vomiting, Dysuria, Chest pain, Near syncope / syncope Recently seen: Emergency Dept - Additional information Additional information: This is a 68-year-old woman who presents with her family with complaints that she started feeling short of breath and is having abdominal pain. She denies chest pain nausea or vomiting or diarrhea. She did in fact says that she is been constipated. She denies fever but states that she is been chilled. She denies any prior abdominal surgeries. Patient is diabetic and has high blood pressure had a heart attack in November for which she was admitted here. Denies history of DVT. She was in the emergency department 6 days ago she had a CT scan of her abdomen that showed some fluid in the abdomen was not clear what the etiology of it was. She does have some underlying lung issue but has not been formally diagnosed and is scheduled to see a signaling project engineer. 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 Denies history of CHF. She does not drink alcohol. She is noted some peripheral edema today. Review of Systems Unable to obtain: Other (Dyspnea) Constitutional: reports: Chills. denies: Fever Cardiac: denies: Chest pain / pressure, Palpitations Respiratory: reports: Dyspnea. denies: Cough GI: reports: Abdominal Pain, Constipation. denies: Nausea, Vomiting, Diarrhea : denies: Dysuria, Frequency Skin: denies: Rash Neurologic: denies: Syncope Endocrine: reports: Other (Patient is a diabetic.) PD PAST MEDICAL HISTORY - Present Medications Home Medications: Ambulatory Orders Medication Instructions Recorded Confirmed Aspirin [Aspirin EC] 81 mg PO DAILY 12/24/18 06/20/19 Ferrous Gluconate 324 mg PO DAILY 12/24/18 06/20/19 Folic Acid 1 mg PO DAILY 12/24/18 06/20/19 Meloxicam 15 mg PO QDLUNCH 12/24/18 06/20/19 Metoprolol Succinate 150 mg PO BID 12/24/18 06/20/19 Potassium Chloride 10 meq PO DAILYWM 12/24/18 06/20/19 Sitagliptin Phos/Metformin HCl 1 each PO DAILY 12/24/18 06/20/19 [Janumet Xr 100-1,000 mg Tablet] sulfaSALAzine [Azulfidine] 1,000 mg PO BIDWM 12/26/18 06/20/19 Losartan Potassium [Cozaar] 100 mg PO QPM 05/07/19 06/20/19 Fluticasone Propion/Salmeterol 1 puffs IH DAILY 06/20/19 06/20/19 [Fluticasone-Salmeterol 500-50] Omeprazole 20 mg PO DAILY 06/20/19 06/20/19 Ondansetron Odt [Zofran Odt] 4 mg PO DAILY 06/20/19 06/20/19 Promethazine [Phenergan] 25 mg PO Q6H PRN #10 tab 06/20/19 Rosuvastatin Calcium 40 mg PO DAILY 06/20/19 06/20/19 - Allergies Allergies/Adverse Reactions: Allergies Allergy/AdvReac Type Severity Reaction Status Date / Time No Known Drug Allergies Allergy Verified 06/24/19 04:56 PD ED PE NORMAL - Vitals Vital signs reviewed: Yes - General General: Alert and oriented X 3, No acute distress, Well developed/nourished, Other (She is dyspneic grunting and moaning.) - HEENT HEENT: Atraumatic, EOMI, Other (No scleral icterus) - Neck Neck: No adenopathy, Thyroid normal - Cardiac Cardiac: No murmur, Other (She is tachycardia) - Respiratory Respiratory: No respiratory distress, Clear bilaterally - Abdomen Abdomen: Other (Abdomen is mildly distended. No bowel sounds, diffusely tender.) - Derm Derm: Normal color, Warm and dry, No rash - Extremities Extremities: Other (She has 2-3+ pitting edema of the lower extremities bilaterally) - Neuro Neuro: Alert and oriented X 3, No motor deficit, No sensory deficit, Normal speech - Psych Psych: Normal mood, Normal affect Results - Vitals Vitals: Vital Signs - 24 hr 06/24/19 06/24/19 06/24/19 04:53 05:02 05:28 Temperature 36.8 C Heart Rate 136 H 135 H 133 H Respiratory 27 H 30 H 20 Rate Blood Pressure 139/114 H 144/132 H 133/78 H O2 Saturation 94 99 97 06/24/19 06/24/19 06/24/19 05:34 05:39 05:46 Temperature Heart Rate 133 H 134 H 127 H Respiratory 19 16 22 Rate Blood Pressure 126/81 H 128/93 H 139/92 H O2 Saturation 97 98 6 L 06/24/19 06/24/19 06/24/19 05:48 05:50 05:54 Temperature Heart Rate 145 H 145 H 128 H Respiratory 26 H 29 H 20 Rate Blood Pressure 139/83 H O2 Saturation 92 90 L 97 06/24/19 06/24/19 06/24/19 05:58 06:10 06:15 Temperature Heart Rate 137 H 124 H 119 H Respiratory 28 H 20 18 Rate Blood Pressure 121/85 H 142/83 H 113/75 O2 Saturation 99 98 99 06/24/19 06/24/19 06/24/19 06:24 06:25 06:30 Temperature Heart Rate 131 H 138 H 128 H Respiratory 20 15 16 Rate Blood Pressure 136/72 H 149/84 H 145/74 H O2 Saturation 99 98 98 06/24/19 06/24/19 06/24/19 06:43 06:48 06:50 Temperature Heart Rate 123 H 115 H 117 H Respiratory 21 17 19 Rate Blood Pressure 125/102 H 144/68 H 145/72 H O2 Saturation 97 97 98 Oxygen O2 Source Non-rebreather mask Oxygen Flow Rate 15 - EKG (time done) 0454 Rate: Rate (enter#) (130) Rhythm: Sinus tachycardia, Other (PACs) Intervals: Wide QRS QRS: Low voltage Ischemia: Non specific changes 0555 Rate: Rate (enter#) (134) Rhythm: Sinus tachycardia, Other (PACs) Intervals: Wide QRS, Other Ischemia: Normal ST segments, Non specific changes Compare to prior EKG: Unchanged from prior EKG - Labs Labs: Laboratory Tests 06/24/19 06/24/19 06/24/19 05:20 05:20 05:54 WBC 10.7 RBC 4.18 L Hgb 13.1 Hct 40.0 MCV 95.7 MCH 31.3 H MCHC 32.8 RDW 21.2 H Plt Count 204 MPV 10.5 Neut # (Auto) 9.3 H Lymph # (Auto) 0.5 L [place] # (Auto) 0.8 Eos # (Auto) 0.1 Baso # (Auto) 0.0 Absolute Nucleated RBC 0.00 Nucleated RBC % 0.0 Manual Slide Review Indicated Platelet Estimate NORMAL (130-450,000) RBC Morph Micro Appear 1+ OVALOCYTES PT 13.9 H INR 1.2 Sodium Potassium Chloride Carbon Dioxide Anion Gap BUN Creatinine Estimated GFR (MDRD) Glucose Lactic Acid Calcium Total Bilirubin AST ALT Alkaline Phosphatase Troponin I High Sens B-Natriuretic Peptide 2244 H Total Protein Albumin Globulin Albumin/Globulin Ratio Lipase 06/24/19 06/24/19 06/24/19 05:54 05:54 05:54 WBC RBC Hgb Hct MCV MCH MCHC RDW Plt Count MPV Neut # (Auto) Lymph # (Auto) [place] # (Auto) Eos # (Auto) Baso # (Auto) Absolute Nucleated RBC Nucleated RBC % Manual Slide Review Platelet Estimate RBC Morph Micro Appear PT INR Sodium 135 Potassium 3.9 Chloride 103 Carbon Dioxide 22 Anion Gap 10.0 BUN 26 H Creatinine 1.1 H Estimated GFR (MDRD) 50 L Glucose 168 H Lactic Acid 1.6 Calcium 8.9 Total Bilirubin 1.4 H AST 46 H ALT 34 Alkaline Phosphatase 118 Troponin I High Sens 111.5 H* B-Natriuretic Peptide Total Protein 6.4 L Albumin 3.4 Globulin 3.0 Albumin/Globulin Ratio 1.1 Lipase 48 - Rads (name of study) CXR Radiology: EMP read contemporaneously, See rad report (Cardiomeg with CHF) PD MEDICAL DECISION MAKING - ED course Complexity details: reviewed results, d/w patient, d/w family ED course: Patient was started on a nitroglycerin drip and given 20 of Lasix IV. Her chest x-ray does show pulmonary edema. Her heart is enlarged. Hemoglobin was stable. BUN and creatinine are essentially normal. Her BNP came back at 2200 and her initial high-sensitivity troponin is 111. I discussed with Dr. Mariam del real, Who is covering for her inspector toys at [facility]. He recommended the patient be transferred and started on heparin. Her EKG does not show acute ischemia but she is tachycardic. I was initially concerned there could be a pericardial effusion however I went back and reviewed her CT scan that was done on 20 June and there does not appear to be a pericardial effusion on the cuts they have through the lower thorax. I am waiting phone call from the hospitalist at [facility] for transfer. Her tachycardia is improved down to 109 when she is resting and her blood pressure also improved on the nitroglycerin drip. Patient is stating that she feels more comfortable after receiving Dilaudid and Zofran. She was even requesting something to eat because she was hungry. She is to remain n.p.o. until she is evaluated by cardiology at [facility]. Care turned over to Dr Cordero at 0700.
[2019-06-24] MEDS ORDERED: FUROSEMIDE 40 MG/4 ML VIAL IVP STA (05:17)
[2019-06-24 05:31] LABS: BASOPHILS % (AUTO) 0.3 %; EOSINOPHILS # (AUTO) 0.1 10^3/uL (0.0-0.7); EOSINOPHILS % (AUTO) 0.6 %; HGB - HEMOGLOBIN 13.1 g/dL (12.0-16.0); LYMPHOCYTES # (AUTO) 0.5 10^3/uL (1.5-3.5); LYMPHOCYTES % (AUTO) 4.5 %; MEAN CORPUSCULAR HEMOGLOBIN 31.3 pg (27.0-31.0); MEAN CORPUSCULAR HGB CONC 32.8 g/dL (32.0-36.0); MEAN CORPUSCULAR VOLUME 95.7 fL (81.0-99.0); MEAN PLATELET VOLUME 10.5 fL (7.9-10.8); MONOCYTES # (AUTO) 0.8 10^3/uL (0.0-1.0); MONOCYTES % (AUTO) 7.1 %; NEUTROPHILS # (AUTO) 9.3 10^3/uL (1.5-6.6); NEUTROPHILS % (AUTO) 86.9 %; PLT - PLATELET COUNT 204 10^3/uL (130-450); RED BLOOD COUNT 4.18 10^6/uL (4.20-5.40); RED CELL DISTRIBUTION WIDTH 21.2 % (12.0-15.0); WHITE BLOOD COUNT 10.7 x10^3/uL (4.8-10.8)
--- NOTE | 2019-06-24 05:31 | XRAY Report ---
Reason: chest pain Procedure Date: 06/24/2019 Accession Number: [id number] / [id number] Procedure: XR - Chest 1 View X-Ray CPT Code: 67021 FULL RESULT: EXAM: CHEST RADIOGRAPHY EXAM DATE: 06/24/2019 05:15 AM. CLINICAL HISTORY: Chest pain. COMPARISON: CHEST 2 VIEW 05/07/2019 12:44 PM CHEST ANGIO 12/23/2018 11:48 PM. TECHNIQUE: 1 view. FINDINGS: Lungs/Pleura: Diffuse mild to moderate interstitial opacities. Small No gross pneumothorax. Mediastinum: Moderate cardiomegaly. No mediastinal shift. Other: None. IMPRESSION: Mild to moderate CHF. RADIA
[2019-06-24 05:40] LABS: INR 1.2 (0.8-1.2); PT - PROTHROMBIN TIME 13.9 secs (9.9-12.6)
[2019-06-24] MEDS ORDERED: NITROGLYCERIN 50 MG/250 ML 50 MG/250 ML BOTTLE IV SCH (06:00)
[2019-06-24 06:03] LABS: PLATELET ESTIMATE, MANUAL NORMAL (130-450,000) (NORMAL)
[2019-06-24 06:12] LABS: ALBUMIN 3.4 g/dL (3.2-5.5); ALBUMIN/GLOBULIN RATIO 1.1 (1.0-2.2); BILIRUBIN,TOTAL 1.4 mg/dL (0.2-1.0); CALCIUM 8.9 mg/dL (8.5-10.3); CREATININE 1.1 mg/dL (0.4-1.0); TOTAL PROTEIN 6.4 g/dL (6.7-8.2)
[2019-06-24] MEDS ORDERED: HEPARIN 25000UNITS/500ML (D5W) 25,000 UNIT/500 ML BAG IV STA (06:49)
[2019-06-24] MEDS ORDERED: HEPARIN 5,000 UNIT/ML VIAL IVP STA (06:49)
[2019-06-24] MEDS: METOPROLOL 5 MG/5 ML VIAL IVP STA ×2 (08:11→09:59)
--- NOTE | 2019-06-24 08:14 | ED Physician Documentation ---
PD HPI DYSPNEA - Stated complaint Stated Complaint: SOA, ABD PAIN - Chief complaint Chief Complaint: Resp - History obtained from History obtained from: Patient, Family - History of Present Illness Timing - onset: Last night Timing - onset during: Rest Timing - duration: Hours Timing - details: Gradual onset, Still present in ED Inciting event(s): Other (fluid retention) Worsened by: Exertion, Laying flat Associated symptoms: No: Fever, Cough, Hemoptysis Similar symptoms before: Diagnosis (pulmonary hypertension) Recently seen: Clinic, Emergency Dept - Additional information Additional information: Yesterday she was unable to keep down any of her medications secondary to vomiting and this morning she is acutely short of breath with obvious failure. She was treated in the emergency department by Dr. Aguilar with intravenous nitro and Lasix with some improvement. 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: Hysterectomy - Present Medications Home Medications: Ambulatory Orders Medication Instructions Recorded Confirmed Aspirin [Aspirin EC] 81 mg PO DAILY 12/24/18 06/20/19 Ferrous Gluconate 324 mg PO DAILY 12/24/18 06/20/19 Folic Acid 1 mg PO DAILY 12/24/18 06/20/19 Meloxicam 15 mg PO QDLUNCH 12/24/18 06/20/19 Metoprolol Succinate 150 mg PO BID 12/24/18 06/20/19 Potassium Chloride 10 meq PO DAILYWM 12/24/18 06/20/19 Sitagliptin Phos/Metformin HCl 1 each PO DAILY 12/24/18 06/20/19 [Janumet Xr 100-1,000 mg Tablet] sulfaSALAzine [Azulfidine] 1,000 mg PO BIDWM 12/26/18 06/20/19 Losartan Potassium [Cozaar] 100 mg PO QPM 05/07/19 06/20/19 Fluticasone Propion/Salmeterol 1 puffs IH DAILY 06/20/19 06/20/19 [Fluticasone-Salmeterol 500-50] Omeprazole 20 mg PO DAILY 06/20/19 06/20/19 Ondansetron Odt [Zofran Odt] 4 mg PO DAILY 06/20/19 06/20/19 Promethazine [Phenergan] 25 mg PO Q6H PRN #10 tab 06/20/19 Rosuvastatin Calcium 40 mg PO DAILY 06/20/19 06/20/19 - Allergies Allergies/Adverse Reactions: Allergies Allergy/AdvReac Type Severity Reaction Status Date / Time No Known Drug Allergies Allergy Verified 06/24/19 12:54 - Social History Does the pt smoke?: No Smoking Status: Never smoker Does the pt drink ETOH?: No Does the pt have substance abuse?: No - Immunizations Immunizations are current?: No Immunizations: TDAP >10years/unknown - POLST Patient has POLST: No POLST Status: Full Code PD ED PE NORMAL - Vitals Vital signs reviewed: Yes (tachy tachpneic and hypertensive) - General General: Alert and oriented X 3, Well developed/nourished, Other (wearing a non- rebreather mask the patient is not in distress at the time of my evaluation but with a heart rate of 140. ) - Neck Neck: Supple, no meningeal sign Results - Vitals Vitals: Vital Signs - 24 hr 06/24/19 06/24/19 06/24/19 04:53 05:02 05:28 Temperature 36.8 C Heart Rate 136 H 135 H 133 H Respiratory 27 H 30 H 20 Rate Blood Pressure 139/114 H 144/132 H 133/78 H O2 Saturation 94 99 97 06/24/19 06/24/19 06/24/19 05:34 05:39 05:46 Temperature Heart Rate 133 H 134 H 127 H Respiratory 19 16 22 Rate Blood Pressure 126/81 H 128/93 H 139/92 H O2 Saturation 97 98 6 L 06/24/19 06/24/19 06/24/19 05:48 05:50 05:54 Temperature Heart Rate 145 H 145 H 128 H Respiratory 26 H 29 H 20 Rate Blood Pressure 139/83 H O2 Saturation 92 90 L 97 06/24/19 06/24/19 06/24/19 05:58 06:10 06:15 Temperature Heart Rate 137 H 124 H 119 H Respiratory 28 H 20 18 Rate Blood Pressure 121/85 H 142/83 H 113/75 O2 Saturation 99 98 99 06/24/19 06/24/19 06/24/19 06:24 06:25 06:30 Temperature Heart Rate 131 H 138 H 128 H Respiratory 20 15 16 Rate Blood Pressure 136/72 H 149/84 H 145/74 H O2 Saturation 99 98 98 06/24/19 06/24/19 06/24/19 06:43 06:48 06:50 Temperature Heart Rate 123 H 115 H 117 H Respiratory 21 17 19 Rate Blood Pressure 125/102 H 144/68 H 145/72 H O2 Saturation 97 97 98 06/24/19 06/24/19 06/24/19 07:00 07:12 07:15 Temperature Heart Rate 133 H 122 H 114 H Respiratory 28 H 20 17 Rate Blood Pressure 150/121 H 115/100 H 104/84 H O2 Saturation 95 97 97 06/24/19 06/24/19 06/24/19 07:20 07:30 07:35 Temperature Heart Rate 138 H 138 H 137 H Respiratory 28 H 20 20 Rate Blood Pressure 112/73 134/82 H 148/96 H O2 Saturation 97 97 98 06/24/19 06/24/19 06/24/19 07:40 07:50 08:00 Temperature Heart Rate 129 H 140 H 144 H Respiratory 22 55 H 30 H Rate Blood Pressure 134/72 H 104/78 126/76 O2 Saturation 97 97 98 06/24/19 06/24/19 06/24/19 08:10 08:20 08:28 Temperature Heart Rate 141 H 108 H 109 H Respiratory 14 16 20 Rate Blood Pressure 136/70 H 104/71 99/69 O2 Saturation 95 93 92 06/24/19 06/24/19 06/24/19 08:30 08:37 08:45 Temperature Heart Rate 108 H 110 H 110 H Respiratory 17 14 15 Rate Blood Pressure 105/73 113/78 104/74 O2 Saturation 93 91 L 94 06/24/19 06/24/19 06/24/19 09:00 09:30 10:00 Temperature Heart Rate 103 H 107 H 111 H Respiratory 19 22 14 Rate Blood Pressure 92/75 110/77 110/74 O2 Saturation 92 95 93 06/24/19 06/24/19 06/24/19 10:06 10:18 10:35 Temperature Heart Rate 96 93 94 Respiratory 20 12 21 Rate Blood Pressure 93/67 75/53 L 94/71 O2 Saturation 92 90 L 90 L 06/24/19 06/24/19 06/24/19 10:51 11:10 11:45 Temperature Heart Rate 94 115 H 104 H Respiratory 20 12 15 Rate Blood Pressure 84/59 L 96/63 93/61 O2 Saturation 91 L 93 92 06/24/19 06/24/19 06/24/19 12:00 12:15 12:30 Temperature Heart Rate 101 H 102 H 103 H Respiratory 17 17 17 Rate Blood Pressure 101/68 102/65 103/70 O2 Saturation 93 91 L 91 L 06/24/19 06/24/19 06/24/19 12:45 13:00 13:15 Temperature Heart Rate 102 H 106 H 102 H Respiratory 20 22 21 Rate Blood Pressure 113/74 114/79 91/65 O2 Saturation 94 93 91 L 06/24/19 06/24/19 06/24/19 13:30 13:45 14:23 Temperature Heart Rate 97 107 H 102 H Respiratory 23 22 16 Rate Blood Pressure 106/66 103/68 115/75 O2 Saturation 95 95 95 06/24/19 06/24/19 15:42 17:49 Temperature Heart Rate 105 H 109 H Respiratory 15 26 H Rate Blood Pressure 129/94 H 120/92 H O2 Saturation 92 92 Oxygen O2 Source Oxymask Oxygen Flow Rate 15 - Labs Labs: Laboratory Tests 06/24/19 06/24/19 06/24/19 05:20 05:20 05:54 WBC 10.7 RBC 4.18 L Hgb 13.1 Hct 40.0 MCV 95.7 MCH 31.3 H MCHC 32.8 RDW 21.2 H Plt Count 204 MPV 10.5 Neut # (Auto) 9.3 H Lymph # (Auto) 0.5 L [place] # (Auto) 0.8 Eos # (Auto) 0.1 Baso # (Auto) 0.0 Absolute Nucleated RBC 0.00 Nucleated RBC % 0.0 Manual Slide Review Indicated Platelet Estimate NORMAL (130-450,000) RBC Morph Micro Appear 1+ OVALOCYTES PT 13.9 H INR 1.2 Sodium Potassium Chloride Carbon Dioxide Anion Gap BUN Creatinine Estimated GFR (MDRD) Glucose Lactic Acid Calcium Total Bilirubin AST ALT Alkaline Phosphatase Troponin I High Sens B-Natriuretic Peptide 2244 H Total Protein Albumin Globulin Albumin/Globulin Ratio Lipase Urine Color Urine Clarity Urine pH Ur Specific [place] Urine Protein Urine Glucose (UA) Urine Ketones Urine Occult Blood Urine Nitrite Urine Bilirubin Urine Urobilinogen Ur Leukocyte Esterase Ur Microscopic Review Urine Culture Comments 06/24/19 06/24/19 06/24/19 05:54 05:54 05:54 WBC RBC Hgb Hct MCV MCH MCHC RDW Plt Count MPV Neut # (Auto) Lymph # (Auto) [place] # (Auto) Eos # (Auto) Baso # (Auto) Absolute Nucleated RBC Nucleated RBC % Manual Slide Review Platelet Estimate RBC Morph Micro Appear PT INR Sodium 135 Potassium 3.9 Chloride 103 Carbon Dioxide 22 Anion Gap 10.0 BUN 26 H Creatinine 1.1 H Estimated GFR (MDRD) 50 L Glucose 168 H Lactic Acid 1.6 Calcium 8.9 Total Bilirubin 1.4 H AST 46 H ALT 34 Alkaline Phosphatase 118 Troponin I High Sens 111.5 H* B-Natriuretic Peptide Total Protein 6.4 L Albumin 3.4 Globulin 3.0 Albumin/Globulin Ratio 1.1 Lipase 48 Urine Color Urine Clarity Urine pH Ur Specific [place] Urine Protein Urine Glucose (UA) Urine Ketones Urine Occult Blood Urine Nitrite Urine Bilirubin Urine Urobilinogen Ur Leukocyte Esterase Ur Microscopic Review Urine Culture Comments 06/24/19 08:22 WBC RBC Hgb Hct MCV MCH MCHC RDW Plt Count MPV Neut # (Auto) Lymph # (Auto) [place] # (Auto) Eos # (Auto) Baso # (Auto) Absolute Nucleated RBC Nucleated RBC % Manual Slide Review Platelet Estimate RBC Morph Micro Appear PT INR Sodium Potassium Chloride Carbon Dioxide Anion Gap BUN Creatinine Estimated GFR (MDRD) Glucose Lactic Acid Calcium Total Bilirubin AST ALT Alkaline Phosphatase Troponin I High Sens B-Natriuretic Peptide Total Protein Albumin Globulin Albumin/Globulin Ratio Lipase Urine Color LIGHT YELLOW Urine Clarity CLEAR Urine pH 5.5 Ur Specific [place] <=1.005 Urine Protein NEGATIVE Urine Glucose (UA) NEGATIVE Urine Ketones NEGATIVE Urine Occult Blood NEGATIVE Urine Nitrite NEGATIVE Urine Bilirubin NEGATIVE Urine Urobilinogen 0.2 (NORMAL) Ur Leukocyte Esterase NEGATIVE Ur Microscopic Review NOT INDICATED Urine Culture Comments NOT INDICATED Procedures - Bedside sono Bedside sono by EMP: With use of bedside ultrasound the heart is imaged it is hyperdynamic and there is evidence of wall motion abnormality to the left ventricle. There is no evidence of pericardial effusion. There is ventriculomegaly. - IVC sono (time) 0800 Bedside IVC sono: IVC measures (cm) (1.72), Euvolemia PD MEDICAL DECISION MAKING - ED course Complexity details: reviewed old records, reviewed results, re-evaluated patient, considered differential, d/w patient, d/w family ED course: 68-year-old female with acute congestive heart failure has been diuresed and her blood pressure has been reduced and she is tachycardic and she is administered metoprolol. The plasma processing technician at [facility] has been consulted and transfer is recommended and we are awaiting a call from the hospitalist. The hospitalist is involved in consult to see the hydrometer calibrator who recommends we transfer the patient to another facility where they are capable of a more advanced intervention regarding her pulmonary hypertension. The hydrometer calibrator indicated that [facility] is unable to do this as well. And recommends [facility] or [facility]. The hydrometer calibrator at [facility] Dr. Peres recommends transfer and the hospitalist at [facility] Dr.Sharon Robertson accepts patient in transfer and we are awaiting a bed. Departure - Departure Disposition: 02 Transfer Acute Care Hosp Clinical Impression: Congestive heart failure Qualifiers: Heart failure type: unspecified Heart failure chronicity: acute on chronic Qualified Code(s): I50.9 - Heart failure, unspecified
[2019-06-24] MEDS ORDERED: METOPROLOL 5 MG/5 ML VIAL IVP ONE ×2 (08:27→10:08)
[2019-06-24 08:34] LABS: BILIRUBIN,URINE NEGATIVE (NEGATIVE); GLUCOSE, URINE (UA) NEGATIVE (NEGATIVE); KETONES,URINE (UA) NEGATIVE (NEGATIVE); LEUKOCYTE ESTERASE, URINE NEGATIVE (NEGATIVE); NITRITE,URINE NEGATIVE (NEGATIVE); OCCULT BLOOD,URINE NEGATIVE (NEGATIVE); PH,URINE 5.5 PH (5.0-7.5); PROTEIN,URINE NEGATIVE (NEGATIVE); UROBILINOGEN,URINE 0.2 (NORMAL) E.U./dL (NORMAL)
[2019-06-24 08:37] LABS: CLARITY,URINE CLEAR (CLEAR)
[2019-06-24 19:33] VITALS: BP 132/73
== END 2019-06-24 20:33 | disposition short-term general hospital (02) ==
LOC: EDUNIT# → ED 04:49
DX: I11.0 Hypertensive heart disease with heart failure (principal); I50.9 Heart failure, unspecified; I27.20 Pulmonary hypertension, unspecified; R00.0 Tachycardia, unspecified; E11.9 Type 2 diabetes mellitus without complications
CPT/HCPCS: 36415; 71045; 80053; 81003; 83605; 83690; 83880; 84484; 85025; 85610; 87040; 93005; 96365; 96366; 96368; 96375; 96376; 99284; 99285; J1170; 81001; 87086

== ENCOUNTER 2019-06-24 20:32 | Outpatient (CLI) | payer MEDICARE, MEDICAID | END 2019-06-24 20:33 | disposition short-term general hospital (02) | LOC: EMS 20:32 | PROVIDERS: ATTEND Surgery | DX: R06.02 Shortness of breath (principal) | CPT/HCPCS: A0425; A0429 ==

== ENCOUNTER 2019-07-28 08:00 | Outpatient (CLI) | payer MEDICARE, MEDICAID ==
[2019-07-28 12:32] LABS: BASOPHILS # (AUTO) 0.1 10^3/uL (0.0-0.1); BASOPHILS % (AUTO) 0.9 %; EOSINOPHILS # (AUTO) 0.1 10^3/uL (0.0-0.7); HGB - HEMOGLOBIN 14.1 g/dL (12.0-16.0); LYMPHOCYTES # (AUTO) 1.1 10^3/uL (1.5-3.5); LYMPHOCYTES % (AUTO) 14.1 %; MEAN CORPUSCULAR HEMOGLOBIN 29.7 pg (27.0-31.0); MEAN CORPUSCULAR HGB CONC 31.5 g/dL (32.0-36.0); MEAN CORPUSCULAR VOLUME 94.1 fL (81.0-99.0); MEAN PLATELET VOLUME 10.3 fL (7.9-10.8); MONOCYTES # (AUTO) 0.5 10^3/uL (0.0-1.0); NEUTROPHILS # (AUTO) 5.9 10^3/uL (1.5-6.6); NEUTROPHILS % (AUTO) 76.5 %; PLT - PLATELET COUNT 323 10^3/uL (130-450); RED BLOOD COUNT 4.75 10^6/uL (4.20-5.40); RED CELL DISTRIBUTION WIDTH 16.8 % (12.0-15.0); WHITE BLOOD COUNT 7.7 x10^3/uL (4.8-10.8)
[2019-07-28 13:12] LABS: ALBUMIN 4.3 g/dL (3.2-5.5); ALBUMIN/GLOBULIN RATIO 3.6 (1.0-2.2); ALKALINE PHOSPHATASE 101 IU/L (42-121); ALT ALANINE AMINOTRANSFERASE 31 IU/L (10-60); AST ASPARTATE AMINOTRANSFERASE 51 IU/L (10-42); BILIRUBIN,TOTAL 1.4 mg/dL (0.2-1.0); BUN - BLOOD UREA NITROGEN 25 mg/dL (6-20); CALCIUM 9.7 mg/dL (8.5-10.3); CARBON DIOXIDE - CO2 27 mmol/L (21-32); CHLORIDE 87 mmol/L (101-111); CHOL/HDL RATIO 2.5 (<4.4); CHOLESTEROL 124 mg/dL; CREATININE 1.7 mg/dL (0.4-1.0); GFR - MDRD 30 (>89); GLUCOSE 125 mg/dL (70-100); HDL CHOLESTEROL 50 mg/dL; LDL CHOLESTEROL,CALCULATED 42 mg/dL; LDL/HDL RATIO 0.8 (<4.4); SODIUM 130 mmol/L (135-145); TOTAL PROTEIN 5.5 g/dL (6.7-8.2); VLDL CHOLESTEROL 32 mg/dL
[2019-07-28 13:37] LABS: HB2 TOTAL 15.7 g/dL; HEMOGLOBIN A1C 0.67 g/dL; HEMOGLOBIN A1C % 6.1 % (4.6-6.2)
== END 2019-07-28 23:59 | disposition home or self-care (01) ==
LOC: LAB.WCP 08:00
PROVIDERS: ATTEND Physician Assistant Medical
DX: I27.23 Pulmonary hypertension due to lung diseases and hypoxia (principal); E78.5 Hyperlipidemia, unspecified; E11.9 Type 2 diabetes mellitus without complications; R53.83 Other fatigue; F32.9 Major depressive disorder, single episode, unspecified; D64.9 Anemia, unspecified
CPT/HCPCS: 36415; 80053; 80061; 83036; 83721; 84443; 85025

== ENCOUNTER 2019-08-07 05:55 | Outpatient (CLI) | payer MEDICARE | END 2019-08-07 05:56 | disposition critical access hospital (66) | LOC: EMS 05:55 | PROVIDERS: ATTEND Surgery | DX: R10.9 Unspecified abdominal pain (principal); R53.1 Weakness; R19.7 Diarrhea, unspecified | CPT/HCPCS: A0425; A0429 ==

== ENCOUNTER 2019-08-07 06:18 | Emergency (ER) | payer MEDICAID, MEDICARE, OTHER ==
[2019-08-07] MEDS ORDERED: HYDROmorphone 1 MG/ML CARPUJECT IVP STA (06:33)
[2019-08-07] MEDS ORDERED: ONDANSETRON 4 MG/2 ML VIAL IVP STA (06:33)
--- NOTE | 2019-08-07 06:36 | ED Physician Documentation ---
<Mikhail Damon - Last Filed: 08/08/19 13:49> PD HPI ABD PAIN - Stated complaint Stated Complaint: ABD TIGHTNESS - Chief complaint Chief Complaint: Abd Pain - History obtained from History obtained from: Patient, EMS - History of Present Illness Timing - onset: How many days ago (2-3) Timing - duration: Days (2-3) Timing - details: Gradual onset, Still present, Waxing and waning Quality: Aching, Fullness/distended Location: All over / everywhere Radiation: No: Lower back Worsened by: Eating Associated symptoms: Nausea, Diarrhea (loose stool for a day, but not overt diarrhea.), Loss of appetite. No: Fever, Vomiting, Melena, Dysuria Similar symptoms before: No diagnosis (seen in May with abd pain and had labs, CT abd without specific finding.) Recently seen: Admitted (In [facility] for CHF/pulmonary HTN for several days treatment, and discharged on Jul 24. She says had several new meds. Has med list with her. Has felt better regarding breathing, but having abd bloating and cramping now.) Review of Systems Constitutional: denies: Fever Nose: denies: Rhinorrhea / runny nose, Congestion Throat: denies: Sore throat Cardiac: denies: Chest pain / pressure Respiratory: reports: Dyspnea. denies: Cough GI: reports: Abdominal Pain, Abdominal Swelling, Nausea. denies: Vomiting, Bloody / black stool : reports: Frequency. denies: Dysuria Neurologic: reports: Generalized weakness. denies: Near syncope, Altered mental status, Headache PD PAST MEDICAL HISTORY - Past Medical History Cardiovascular: Hypertension, High cholesterol Respiratory: Other Neuro: Other Endocrine/Autoimmune: Type 2 diabetes GI: GERD HEATER TENDER: Other : Nocturia, Frequency HEENT: None Psych: Anxiety, Claustrophobia Musculoskeletal: Rheumatoid arthritis Derm: None - Past Surgical History Past Surgical History: Yes General: Colonoscopy Ortho: Knee replacement /HEATER TENDER: Hysterectomy - Present Medications Home Medications: Ambulatory Orders Medication Instructions Recorded Confirmed Aspirin [Aspirin EC] 81 mg PO DAILY 12/24/18 06/20/19 Ferrous Gluconate 324 mg PO DAILY 12/24/18 06/20/19 Folic Acid 1 mg PO DAILY 12/24/18 06/20/19 Meloxicam 15 mg PO QDLUNCH 12/24/18 06/20/19 Metoprolol Succinate 150 mg PO BID 12/24/18 06/20/19 Potassium Chloride 10 meq PO DAILYWM 12/24/18 06/20/19 Sitagliptin Phos/Metformin HCl 1 each PO DAILY 12/24/18 06/20/19 [Janumet Xr 100-1,000 mg Tablet] sulfaSALAzine [Azulfidine] 1,000 mg PO BIDWM 12/26/18 06/20/19 Losartan Potassium [Cozaar] 100 mg PO QPM 05/07/19 06/20/19 Fluticasone Propion/Salmeterol 1 puffs IH DAILY 06/20/19 06/20/19 [Fluticasone-Salmeterol 500-50] Omeprazole 20 mg PO DAILY 06/20/19 06/20/19 Ondansetron Odt [Zofran Odt] 4 mg PO DAILY 06/20/19 06/20/19 Promethazine [Phenergan] 25 mg PO Q6H PRN #10 tab 06/20/19 Rosuvastatin Calcium 40 mg PO DAILY 06/20/19 06/20/19 - Allergies Allergies/Adverse Reactions: Allergies Allergy/AdvReac Type Severity Reaction Status Date / Time No Known Drug Allergies Allergy Verified 06/24/19 12:54 - Social History Does the pt smoke?: No Smoking Status: Never smoker Does the pt drink ETOH?: No Does the pt have substance abuse?: No - Immunizations Immunizations are current?: No Immunizations: TDAP >10years/unknown - POLST Patient has POLST: No POLST Status: Full Code PD ED PE NORMAL - Vitals Vital signs reviewed: Yes - General General: Alert and oriented X 3, Well developed/nourished - HEENT HEENT: Moist mucous membranes, Pharynx benign - Neck Neck: Supple, no meningeal sign, No adenopathy - Cardiac Cardiac: RRR, No murmur - Respiratory Respiratory: Clear bilaterally - Abdomen Abdomen: Soft, No organomegaly, Other (some distension but not firm. General tenderness without guarding. ). No: Normal bowel sounds (diminished) - Back Back: No CVA TTP - Derm Derm: Normal color, Warm and dry - Extremities Extremities: No tenderness to palpate, Normal ROM s pain, No edema, No calf tenderness / cord - Neuro Neuro: Alert and oriented X 3, No motor deficit, Normal speech PD MEDICAL DECISION MAKING - ED course Complexity details: considered differential (tender abdomen with some distension. Had CT abd in Sept without particular findings. Had mild ascites at that time, but also found to have pulmonary HTN and treated at [facility] couple weeks ago, so could related to that. Will get labs, UA, and CT abd (without contrast due to low GFR). ), d/w patient Departure - Departure Disposition: 02 Transfer Acute Care Hosp Condition: Stable Discharge Date/Time: 08/07/19 13:01 <Hallie Nickerson - Last Filed: 08/09/19 08:37> Results - Vitals Vitals: Oxygen O2 Source Nasal cannula - EKG (time done) 0839 Rate: Rate (enter#) (106) Rhythm: Sinus tachycardia, Other (PAC) Intervals: No: Wide QRS Ischemia: ST elevation c/w repol (V2), Q waves (III, aVF), T wave inversion (III, aVF) - Labs Labs: Microbiology 08/07/19 06:55 Urine Culture - Final Urine,Clean Catch Escherichia Coli 08/07/19 10:18 Blood Culture - Preliminary Blood NO GROWTH AFTER 1 DAY Laboratory Tests 08/07/19 08/07/19 08/07/19 06:55 06:55 06:55 WBC 12.4 H RBC 3.52 L Hgb 10.8 L Hct 32.0 L MCV 90.9 MCH 30.7 MCHC 33.8 RDW 15.6 H Plt Count 294 MPV 9.6 Neut # (Auto) 11.0 H Lymph # (Auto) 0.6 L [place] # (Auto) 0.8 Eos # (Auto) 0.0 Baso # (Auto) 0.0 Absolute Nucleated RBC 0.00 Nucleated RBC % 0.0 PT 15.8 H INR 1.4 H APTT 36.8 H Sodium 126 L Potassium 3.8 Chloride 88 L Carbon Dioxide 21 Anion Gap 17.0 H BUN 51 H Creatinine 1.9 H Estimated GFR (MDRD) 26 L Glucose 164 H Lactic Acid Calcium 8.9 Magnesium 1.8 Total Bilirubin 1.3 H AST 73 H ALT 58 Alkaline Phosphatase 214 H Troponin I High Sens B-Natriuretic Peptide Total Protein 4.7 L Albumin 3.4 Globulin 1.3 L Albumin/Globulin Ratio 2.6 H Lipase 60 H Urine Color Urine Clarity Urine pH Ur Specific [place] Urine Protein Urine Glucose (UA) Urine Ketones Urine Occult Blood Urine Nitrite Urine Bilirubin Urine Urobilinogen Ur Leukocyte Esterase Urine RBC Urine WBC Ur Squamous Epith Cells Amorphous Sediment Urine Bacteria Urine Casts Ur Microscopic Review Urine Culture Comments Serum Ketones NEGATIVE 08/07/19 08/07/19 08/07/19 06:55 06:55 06:55 WBC RBC Hgb Hct MCV MCH MCHC RDW Plt Count MPV Neut # (Auto) Lymph # (Auto) [place] # (Auto) Eos # (Auto) Baso # (Auto) Absolute Nucleated RBC Nucleated RBC % PT INR APTT Sodium Potassium Chloride Carbon Dioxide Anion Gap BUN Creatinine Estimated GFR (MDRD) Glucose Lactic Acid 1.1 Calcium Magnesium Total Bilirubin AST ALT Alkaline Phosphatase Troponin I High Sens B-Natriuretic Peptide 2127 H Total Protein Albumin Globulin Albumin/Globulin Ratio Lipase Urine Color YELLOW Urine Clarity CLOUDY Urine pH 5.5 Ur Specific [place] 1.010 Urine Protein 100 H Urine Glucose (UA) NEGATIVE Urine Ketones NEGATIVE Urine Occult Blood TRACE-INTA Urine Nitrite NEGATIVE Urine Bilirubin NEGATIVE Urine Urobilinogen 0.2 (NORMAL) Ur Leukocyte Esterase NEGATIVE Urine RBC 0-5 Urine WBC 4-5 Ur Squamous Epith Cells FEW Squamous Amorphous Sediment Marked Urine Bacteria Many H Urine Casts 3-5 Granular Casts Ur Microscopic Review INDICATED Urine Culture Comments INDICATED Serum Ketones 08/07/19 08/07/19 06:55 09:14 WBC RBC Hgb Hct MCV MCH MCHC RDW Plt Count MPV Neut # (Auto) Lymph # (Auto) [place] # (Auto) Eos # (Auto) Baso # (Auto) Absolute Nucleated RBC Nucleated RBC % PT INR APTT Sodium Potassium Chloride Carbon Dioxide Anion Gap BUN Creatinine Estimated GFR (MDRD) Glucose Lactic Acid 1.6 Calcium Magnesium Total Bilirubin AST ALT Alkaline Phosphatase Troponin I High Sens 47.1 H* B-Natriuretic Peptide Total Protein Albumin Globulin Albumin/Globulin Ratio Lipase Urine Color Urine Clarity Urine pH Ur Specific [place] Urine Protein Urine Glucose (UA) Urine Ketones Urine Occult Blood Urine Nitrite Urine Bilirubin Urine Urobilinogen Ur Leukocyte Esterase Urine RBC Urine WBC Ur Squamous Epith Cells Amorphous Sediment Urine Bacteria Urine Casts Ur Microscopic Review Urine Culture Comments Serum Ketones - Rads (name of study) CXR Radiology: EMP read contemporaneously (min patchy inifltrates) CT abd/pelvis Radiology: See rad report PD MEDICAL DECISION MAKING - ED course Complexity details: considered differential ED course: 0830: Care was assumed from Dr. Damon at 0800 hrs. Went into evaluate the patient. She looked to sleep but open her eyes when I came in she was requesting something to drink seem to be moaning a little bit but the only complaint of pain was in her arm. She was definitely tachycardic heart rate in the 110s. She is had a complicated recent past history. Her white blood cell count is elevated. She has some elevation of her liver enzymes but that has been present previously. She has a history of ascites but that is not evident on the CT and CT does not show any acute changes. She does have a very soft systolic murmur at the left upper sternal border. I am not sure if that is new. She was not febrile here. I have added on a chest x-ray as well as blood cultures and a repeat lactic acid and have ordered an additional liter of fluids. 0842: Patient urinalysis is finally returned and shows many bacteria only 4 white blood cells per high-power field. I am concerned that she may be septic so have gone ahead and ordered vancomycin and Rocephin IV. In addition her BNP was elevated over 1999 however with the concern of sepsis I still think she needs any IV fluids. I have added a troponin as well and EKG. Will determine disposition whether the patient should be admitted to this facility or transferred to pending on those results. We are still awaiting results from [facility] and the [facility] for her recent admits. Late entry: I felt the patient was too complicated to care for at our facility. The daughter at the bedside requested referral back to . did accept patient in transfer to their ICU. - Critical Care Time(min): 30 Time Includes: Direct patient care, Review records, Reassess patient, Document care, Coordinate care, Medical consult Data interpretation: Labs
[2019-08-07] MEDS ORDERED: SODIUM CHLORIDE 0.9% 500 ML IV ONE (06:41)
[2019-08-07 07:07] LABS: BASOPHILS % (AUTO) 0.2 %; HGB - HEMOGLOBIN 10.8 g/dL (12.0-16.0); LYMPHOCYTES # (AUTO) 0.6 10^3/uL (1.5-3.5); LYMPHOCYTES % (AUTO) 4.5 %; MEAN CORPUSCULAR HEMOGLOBIN 30.7 pg (27.0-31.0); MEAN CORPUSCULAR HGB CONC 33.8 g/dL (32.0-36.0); MEAN CORPUSCULAR VOLUME 90.9 fL (81.0-99.0); MEAN PLATELET VOLUME 9.6 fL (7.9-10.8); MONOCYTES # (AUTO) 0.8 10^3/uL (0.0-1.0); MONOCYTES % (AUTO) 6.2 %; NEUTROPHILS % (AUTO) 88.1 %; PLT - PLATELET COUNT 294 10^3/uL (130-450); RED BLOOD COUNT 3.52 10^6/uL (4.20-5.40); RED CELL DISTRIBUTION WIDTH 15.6 % (12.0-15.0); WHITE BLOOD COUNT 12.4 x10^3/uL (4.8-10.8)
[2019-08-07 07:13] LABS: INR 1.4 (0.8-1.2); PT - PROTHROMBIN TIME 15.8 secs (9.9-12.6)
[2019-08-07 07:22] LABS: KETONES, SERUM (ACETEST) NEGATIVE (NEGATIVE)
[2019-08-07 07:23] LABS: PARTIAL THROMBOPLASTIN TIME 36.8 secs (24.9-33.3)
[2019-08-07 07:31] LABS: ALBUMIN 3.4 g/dL (3.2-5.5); ALBUMIN/GLOBULIN RATIO 2.6 (1.0-2.2); ALKALINE PHOSPHATASE 214 IU/L (42-121); ALT ALANINE AMINOTRANSFERASE 58 IU/L (10-60); AST ASPARTATE AMINOTRANSFERASE 73 IU/L (10-42); BILIRUBIN,TOTAL 1.3 mg/dL (0.2-1.0); BUN - BLOOD UREA NITROGEN 51 mg/dL (6-20); CALCIUM 8.9 mg/dL (8.5-10.3); CARBON DIOXIDE - CO2 21 mmol/L (21-32); CHLORIDE 88 mmol/L (101-111); CREATININE 1.9 mg/dL (0.4-1.0); GFR - MDRD 26 (>89); GLUCOSE 164 mg/dL (70-100); LIPASE 60 U/L (22-51); MAGNESIUM 1.8 mg/dL (1.7-2.8); SODIUM 126 mmol/L (135-145); TOTAL PROTEIN 4.7 g/dL (6.7-8.2)
[2019-08-07 07:44] LABS: GLUCOSE, URINE (UA) NEGATIVE (NEGATIVE); KETONES,URINE (UA) NEGATIVE (NEGATIVE); LEUKOCYTE ESTERASE, URINE NEGATIVE (NEGATIVE); NITRITE,URINE NEGATIVE (NEGATIVE); OCCULT BLOOD,URINE TRACE-INTA (NEGATIVE); PH,URINE 5.5 PH (5.0-7.5); PROTEIN,URINE 100 mg/dL (NEGATIVE); UROBILINOGEN,URINE 0.2 (NORMAL) E.U./dL (NORMAL)
[2019-08-07 07:58] LABS: BILIRUBIN,URINE NEGATIVE (NEGATIVE); CLARITY,URINE CLOUDY (CLEAR); ICTOTEST,URINE NEGATIVE
--- NOTE | 2019-08-07 08:14 | CT Report ---
Reason: general abd pain and fullness 2-3 days Procedure Date: 08/07/2019 Accession Number: [id number] / [id number] Procedure: CT - Abdomen/Pelvis WO CPT Code: Final Report FULL RESULT: EXAM: CT ABDOMEN AND PELVIS (CT KUB) EXAM DATE: 08/07/2019 07:26 AM. CLINICAL HISTORY: Generalized abdominal pain. COMPARISONS: ABDOMEN/PELVIS W/O 06/20/2019 3:28 PM. TECHNIQUE: Routine axial helical CT imaging was performed through the abdomen and pelvis without IV contrast. Reconstructions: Coronal and sagittal. In accordance with CT protocol optimization, one or more of the following dose reduction techniques were utilized for this exam: automated exposure control, adjustment of mA and/or KV based on patient size, or use of iterative reconstructive technique. FINDINGS: Lung Bases: Mild bibasilar scarring. Solid Organs: Noncontrast images of the solid organs are grossly unremarkable. Gallbladder/Bile Ducts: Unremarkable. Peritoneal Cavity: There is minimal predominantly sigmoid diverticulosis without evidence of diverticulitis. There is no obstruction or ileus. No free fluid or free air. Pelvic Organs: Hysterectomy changes are seen. The bladder and visualized pelvic organs are within normal limits. Vasculature: Calcified atherosclerotic disease of the aorta is seen without aneurysm or other significant vascular abnormality. Other: Diffuse degenerative changes are seen in the spine. No acute osseous abnormality is demonstrated. IMPRESSION: No acute intra-abdominal abnormality demonstrated. No obstruction. RADIA
[2019-08-07] MEDS ORDERED: SODIUM CHLORIDE 0.9% 1,000 ML IV ONE (08:28)
[2019-08-07 08:31] LABS: BACTERIA,URINE Many /HPF (None Seen); RBC,URINE 0-5 /HPF (0-5); SQUAMOUS EPITHELIAL CELL,UR FEW Squamous (<= Few)
[2019-08-07 08:32] LABS: AMORPHOUS SEDIMENT,UR Marked /LPF
[2019-08-07] MEDS ORDERED: cefTRIAXone 1 GM in SODIUM CHLORIDE 0.9% MINIBAG 100 ML IV STA (08:41)
[2019-08-07] MEDS ORDERED: VANCOMYCIN INJ 1 GM in SODIUM CHLORIDE 0.9% 500 ML IV STA (08:41)
--- NOTE | 2019-08-07 10:13 | XRAY Report ---
Reason: chest pain Procedure Date: 08/07/2019 Accession Number: [id number] / [id number] Procedure: XR - Chest 1 View X-Ray CPT Code: 40946 Final Report FULL RESULT: EXAM: CHEST RADIOGRAPHY EXAM DATE: 08/07/2019 09:22 AM. CLINICAL HISTORY: Chest Pain. COMPARISON: CHEST 1 VIEW 06/24/2019 5:01 AM. TECHNIQUE: 1 view. FINDINGS: Lungs/Pleura: No focal opacities evident. No pleural effusion. No pneumothorax. Mediastinum: Within exam limitations, the cardiomediastinal contour is normal. Other: Degenerative changes are seen in the shoulders, right side worse than left side. IMPRESSION: No acute cardiopulmonary abnormality demonstrated. RADIA
[2019-08-07 12:40] VITALS: BP 100/79
--- NOTE | 2019-08-07 12:48 | ANESTHESIA PROCEDURE NOTE ---
Diagnosis: sepsis Procedure: central line placement Consent for Procedure(s) Verified and Reviewed: Yes Height and Weight: Height 5 ft 4 in Weight (kg) 72.575 kg Body Mass Index 27.4 Vital Signs: Temp Pulse Resp BP Pulse Ox 36.4 C L 104 H 20 100/79 97 08/07/19 12:40 08/07/19 12:40 08/07/19 12:40 08/07/19 12:40 08/07/19 12:40 Allergies No Known Drug Allergies Allergy (Verified 06/24/19 12:54) Anes. Procedure Start Time: 11:50 Anes. Procedure Stop Time: 12:34 Anesth Central Line Template - Central Line Central Line Preparation: Consent Obtained, Time out completed, Ultrasound used, Sterile prep and drape Central line location: Right IJ Central line type: Triple lumen Central line catheter tip site resides: chest x ray ordered ER doc to interpret Central line aftercare: Chlorhexidine disc placed, Secured, No complications, Pt tolerated well Other Info/Details: consent obtained time out completed, pt placed in T-Rob. Right neck area prepped with chlorohexidine. Right IJ identified under US. insertion site localized with LA.right IJ accessed with introducer needle. Wire advanced with ease. no ectopy noticed. vessel dilated 20 cm TL catheter advanced with ease. Wire removed. All ports aspirated and flushed with ease. Line secured at [address] Bio patch and opsite applied. Chest x ray pending..
--- NOTE | 2019-08-07 13:22 | XRAY Report ---
Reason: s/p central line Procedure Date: 08/07/2019 Accession Number: [id number] / [id number] Procedure: XR - Chest for Line Placement CPT Code: Final Report FULL RESULT: EXAM: CHEST RADIOGRAPHY EXAM DATE: 08/07/2019 12:51 PM. CLINICAL HISTORY: S/p central line. COMPARISON: CHEST 1 VIEW 08/07/2019 9:06 AM. TECHNIQUE: 1 view. FINDINGS: Lungs/Pleura: Hazy lower lung predominant interstitial opacities are again noted. No other focal consolidation. No evidence for pneumothorax. Mediastinum: Stable cardiomegaly. Other: Right central venous catheter terminates at the cavoatrial junction. IMPRESSION: 1. Expected position right central venous catheter. 2. No evidence for pneumothorax. 3. Hazy pulmonary opacities are unchanged. No new focal consolidation. RADIA
== END 2019-08-07 13:01 | disposition short-term general hospital (02) ==
LOC: ED 06:18
DX: R10.9 Unspecified abdominal pain (principal); I11.0 Hypertensive heart disease with heart failure; I50.9 Heart failure, unspecified; I49.1 Atrial premature depolarization; R00.0 Tachycardia, unspecified; R01.1 Cardiac murmur, unspecified; R82.71 Bacteriuria; D72.829 Elevated white blood cell count, unspecified; R74.8 Abnormal levels of other serum enzymes; E11.9 Type 2 diabetes mellitus without complications; Z79.84 Long term (current) use of oral hypoglycemic drugs; Z79.82 Long term (current) use of aspirin
CPT/HCPCS: 36415; 71045; 74176; 80053; 81001; 82009; 83605; 83690; 83735; 83880; 84484; 85025; 85610; 85730; 87040; 87086; 87181; 93005; 96361; 96365; 96375; 99284; 99291; J1170; J3370; 81003

== ENCOUNTER 2019-08-07 14:34 | Outpatient (CLI) | payer MEDICARE | END 2019-08-09 14:35 | disposition short-term general hospital (02) | LOC: EMS 14:34 | PROVIDERS: ATTEND Surgery | DX: I50.9 Heart failure, unspecified (principal); I21.4 Non-ST elevation (NSTEMI) myocardial infarction; A41.9 Sepsis, unspecified organism | CPT/HCPCS: A0425; A0426 ==

== ENCOUNTER 2019-08-16 13:00 | Outpatient (CLI) | payer MEDICARE, MEDICAID | END 2019-08-16 23:59 | disposition home or self-care (01) | LOC: LAB.R 13:00 | PROVIDERS: ATTEND Physician Assistant Medical | DX: N30.00 Acute cystitis without hematuria (principal) | CPT/HCPCS: 87086 ==

== ENCOUNTER 2019-11-16 15:53 | Outpatient (CLI) | payer MEDICARE, MEDICAID ==
--- NOTE | 2019-11-16 16:35 | XRAY Report ---
Reason: COUGH Procedure Date: 11/16/2019 Accession Number: [id number] / [id number] Procedure: WCP - Chest 1 View X-Ray CPT Code: 55895 Final Report FULL RESULT: EXAM: CHEST RADIOGRAPHY EXAM DATE: 11/16/2019 03:53 PM. CLINICAL HISTORY: Cough and severe shortness of breath. COMPARISON: CHEST FOR LINE PLACEMENT 08/07/2019 12:36 PM. TECHNIQUE: 1 view. FINDINGS: Lungs/Pleura: No focal opacities are evident. No pleural effusion or pneumothorax. Mediastinum: Cardiomegaly; pericardial effusion is not excluded. Aortic arch arteriosclerosis. Other: Stable multilevel cervical and thoracic spondylosis as well as degenerative changes in both acromioclavicular joints. Continued severe right glenohumeral joint osteoarthritis. IMPRESSION: 1. No acute findings. 2. Cardiomegaly. Pericardial effusion is not excluded. 3. Other chronic degenerative changes. RADIA
== END 2019-11-16 23:59 | disposition home or self-care (01) ==
LOC: DI.WCP 15:53
PROVIDERS: ATTEND Family Medicine
DX: R05 Cough (principal); I51.7 Cardiomegaly
CPT/HCPCS: 71045

== ENCOUNTER 2019-11-17 13:08 | Outpatient (CLI) | payer MEDICARE, MEDICAID ==
[2019-11-17 18:58] LABS: BASOPHILS % (AUTO) 0.4 %; EOSINOPHILS % (AUTO) 0.6 %; HGB - HEMOGLOBIN 10.9 g/dL (12.0-16.0); LYMPHOCYTES # (AUTO) 0.5 10^3/uL (1.5-3.5); LYMPHOCYTES % (AUTO) 7.3 %; MEAN CORPUSCULAR HEMOGLOBIN 27.3 pg (27.0-31.0); MEAN CORPUSCULAR HGB CONC 29.8 g/dL (32.0-36.0); MEAN CORPUSCULAR VOLUME 91.7 fL (81.0-99.0); MEAN PLATELET VOLUME 9.5 fL (7.9-10.8); MONOCYTES # (AUTO) 0.4 10^3/uL (0.0-1.0); MONOCYTES % (AUTO) 5.5 %; NEUTROPHILS # (AUTO) 6.2 10^3/uL (1.5-6.6); NEUTROPHILS % (AUTO) 85.5 %; PLT - PLATELET COUNT 335 10^3/uL (130-450); RED BLOOD COUNT 3.99 10^6/uL (4.20-5.40); RED CELL DISTRIBUTION WIDTH 17.8 % (12.0-15.0); WHITE BLOOD COUNT 7.3 x10^3/uL (4.8-10.8)
[2019-11-17 19:30] LABS: ALBUMIN/GLOBULIN RATIO 0.8 (1.0-2.2); CALCIUM 9.1 mg/dL (8.5-10.3); CREATININE 1.4 mg/dL (0.4-1.0); TOTAL PROTEIN 6.9 g/dL (6.7-8.2)
[2019-11-17 19:39] LABS: FERRITIN 102.3 ng/mL (11.0-306.8)
== END 2019-11-17 23:59 | disposition home or self-care (01) ==
LOC: LAB.WCP 13:08
PROVIDERS: ATTEND Family Medicine
DX: E87.1 Hypo-osmolality and hyponatremia (principal); D64.9 Anemia, unspecified
CPT/HCPCS: 36415; 80053; 82607; 82728; 83540; 83930; 83935; 84300; 84466; 85025

== ENCOUNTER 2019-12-07 08:00 | Outpatient (CLI) | payer MEDICARE, MEDICAID ==
[2019-12-07 18:56] LABS: BASOPHILS % (AUTO) 0.4 %; EOSINOPHILS % (AUTO) 0.7 %; HGB - HEMOGLOBIN 10.4 g/dL (12.0-16.0); LYMPHOCYTES # (AUTO) 0.6 10^3/uL (1.5-3.5); LYMPHOCYTES % (AUTO) 11.4 %; MEAN CORPUSCULAR HEMOGLOBIN 26.9 pg (27.0-31.0); MEAN CORPUSCULAR HGB CONC 30.1 g/dL (32.0-36.0); MEAN CORPUSCULAR VOLUME 89.4 fL (81.0-99.0); MEAN PLATELET VOLUME 9.9 fL (7.9-10.8); MONOCYTES # (AUTO) 0.5 10^3/uL (0.0-1.0); MONOCYTES % (AUTO) 9.2 %; NEUTROPHILS # (AUTO) 4.4 10^3/uL (1.5-6.6); NEUTROPHILS % (AUTO) 77.9 %; PLT - PLATELET COUNT 276 10^3/uL (130-450); RED BLOOD COUNT 3.87 10^6/uL (4.20-5.40); RED CELL DISTRIBUTION WIDTH 18.6 % (12.0-15.0); WHITE BLOOD COUNT 5.6 x10^3/uL (4.8-10.8)
[2019-12-07 19:12] LABS: ALBUMIN 3.3 g/dL (3.2-5.5); ALBUMIN/GLOBULIN RATIO 0.8 (1.0-2.2); ALKALINE PHOSPHATASE 172 IU/L (42-121); ALT ALANINE AMINOTRANSFERASE 27 IU/L (10-60); AST ASPARTATE AMINOTRANSFERASE 48 IU/L (10-42); BILIRUBIN,TOTAL 1.9 mg/dL (0.2-1.0); BUN - BLOOD UREA NITROGEN 46 mg/dL (6-20); CARBON DIOXIDE - CO2 23 mmol/L (21-32); CHLORIDE 91 mmol/L (101-111); CHOL/HDL RATIO 2.7 (<4.4); CHOLESTEROL 91 mg/dL; CREATININE 1.1 mg/dL (0.4-1.0); GFR - MDRD 49 (>89); GLUCOSE 98 mg/dL (70-100); HDL CHOLESTEROL 34 mg/dL; LDL CHOLESTEROL,CALCULATED 44 mg/dL; LDL/HDL RATIO 1.3 (<4.4); SODIUM 128 mmol/L (135-145); TOTAL PROTEIN 7.7 g/dL (6.7-8.2); VLDL CHOLESTEROL 13 mg/dL
[2019-12-07 19:18] LABS: HB2 TOTAL 10.8 g/dL; HEMOGLOBIN A1C 0.54 g/dL; HEMOGLOBIN A1C % 6.7 % (4.6-6.2)
[2019-12-07 19:30] LABS: CREATININE,URINE < 13.0 mg/dL; MICROALBUM/CREATININE RATIO,UR 146.2 ug/mg (<30.0); MICROALBUMIN,URINE 1.9 mg/dL (0-300.0)
== END 2019-12-07 23:59 | disposition home or self-care (01) ==
LOC: LAB.WCP 08:00
PROVIDERS: ATTEND Physician Assistant Medical
DX: E11.9 Type 2 diabetes mellitus without complications (principal); D64.9 Anemia, unspecified
CPT/HCPCS: 36415; 80053; 80061; 82043; 82570; 83036; 83721; 85025

== ENCOUNTER 2020-04-03 08:00 | Outpatient (CLI) | payer MEDICARE, MEDICAID ==
[2020-04-03 13:11] LABS: BASOPHILS % (AUTO) 0.4 %; EOSINOPHILS # (AUTO) 0.1 10^3/uL (0.0-0.7); HGB - HEMOGLOBIN 11.9 g/dL (12.0-16.0); LYMPHOCYTES # (AUTO) 1.1 10^3/uL (1.5-3.5); LYMPHOCYTES % (AUTO) 19.5 %; MEAN CORPUSCULAR HGB CONC 30.1 g/dL (32.0-36.0); MEAN CORPUSCULAR VOLUME 96.1 fL (81.0-99.0); MONOCYTES # (AUTO) 0.4 10^3/uL (0.0-1.0); MONOCYTES % (AUTO) 7.4 %; NEUTROPHILS # (AUTO) 3.8 10^3/uL (1.5-6.6); NEUTROPHILS % (AUTO) 70.5 %; PLT - PLATELET COUNT 241 10^3/uL (130-450); RED BLOOD COUNT 4.11 10^6/uL (4.20-5.40); RED CELL DISTRIBUTION WIDTH 16.9 % (12.0-15.0); WHITE BLOOD COUNT 5.4 x10^3/uL (4.8-10.8)
[2020-04-03 14:01] LABS: MICROALBUM/CREATININE RATIO,UR 29.5 ug/mg (<30.0); MICROALBUMIN,URINE 1.3 mg/dL (0-300.0)
[2020-04-03 14:18] LABS: HB2 TOTAL 12.3 g/dL; HEMOGLOBIN A1C 0.48 g/dL; HEMOGLOBIN A1C % 5.7 % (4.6-6.2)
== END 2020-04-03 23:59 ==
LOC: LAB.WCP 08:00
PROVIDERS: ATTEND Physician Assistant Medical
DX: E78.5 Hyperlipidemia, unspecified (principal); E11.9 Type 2 diabetes mellitus without complications; D64.9 Anemia, unspecified
CPT/HCPCS: 36415; 80053; 80061; 82043; 82570; 82728; 83036; 83721; 85025

== ENCOUNTER 2020-04-04 08:00 | Outpatient (CLI) | payer MEDICARE, MEDICAID ==
[2020-04-04 14:40] LABS: ALBUMIN 4.2 g/dL (3.2-5.5); ALBUMIN/GLOBULIN RATIO 1.3 (1.0-2.2); ALKALINE PHOSPHATASE 100 IU/L (42-121); ALT ALANINE AMINOTRANSFERASE 28 IU/L (10-60); AST ASPARTATE AMINOTRANSFERASE 40 IU/L (10-42); BUN - BLOOD UREA NITROGEN 50 mg/dL (6-20); CALCIUM 9.4 mg/dL (8.5-10.3); CARBON DIOXIDE - CO2 26 mmol/L (21-32); CHLORIDE 101 mmol/L (101-111); CHOL/HDL RATIO 2.4 (<4.4); CHOLESTEROL 132 mg/dL; CREATININE 1.3 mg/dL (0.4-1.0); GLUCOSE 91 mg/dL (70-100); HDL CHOLESTEROL 56 mg/dL; LDL CHOLESTEROL,CALCULATED 59 mg/dL; LDL/HDL RATIO 1.1 (<4.4); SODIUM 138 mmol/L (135-145); TOTAL PROTEIN 7.5 g/dL (6.7-8.2); VLDL CHOLESTEROL 17 mg/dL
== END 2020-04-04 23:59 | disposition home or self-care (01) ==
LOC: LAB.WCP 08:00
PROVIDERS: ATTEND Physician Assistant Medical
DX: E78.5 Hyperlipidemia, unspecified (principal); D64.9 Anemia, unspecified
CPT/HCPCS: 36415; 80053; 80061; 82728; 83721

== ENCOUNTER 2020-10-06 07:47 | Outpatient (CLI) | payer MEDICARE, MEDICAID ==
[2020-10-06 12:30] LABS: BASOPHILS # (AUTO) 0.1 10^3/uL (0.0-0.1); BASOPHILS % (AUTO) 0.7 %; EOSINOPHILS # (AUTO) 0.2 10^3/uL (0.0-0.7); EOSINOPHILS % (AUTO) 2.5 %; HGB - HEMOGLOBIN 12.8 g/dL (12.0-16.0); LYMPHOCYTES # (AUTO) 1.3 10^3/uL (1.5-3.5); LYMPHOCYTES % (AUTO) 18.8 %; MEAN CORPUSCULAR HEMOGLOBIN 29.3 pg (27.0-31.0); MEAN CORPUSCULAR HGB CONC 32.2 g/dL (32.0-36.0); MEAN CORPUSCULAR VOLUME 91.1 fL (81.0-99.0); MEAN PLATELET VOLUME 10.4 fL (7.9-10.8); MONOCYTES # (AUTO) 0.7 10^3/uL (0.0-1.0); MONOCYTES % (AUTO) 10.1 %; NEUTROPHILS # (AUTO) 4.7 10^3/uL (1.5-6.6); NEUTROPHILS % (AUTO) 67.8 %; PLT - PLATELET COUNT 285 10^3/uL (130-450); RED BLOOD COUNT 4.37 10^6/uL (4.20-5.40); RED CELL DISTRIBUTION WIDTH 15.6 % (12.0-15.0); WHITE BLOOD COUNT 6.9 x10^3/uL (4.8-10.8)
[2020-10-06 12:49] LABS: HEMOGLOBIN A1c% 6.2 % (4.27-6.07)
[2020-10-06 13:03] LABS: ALBUMIN 3.8 g/dL (3.2-5.5); ALKALINE PHOSPHATASE 85 IU/L (42-121); ALT ALANINE AMINOTRANSFERASE 22 IU/L (10-60); AST ASPARTATE AMINOTRANSFERASE 28 IU/L (10-42); BILIRUBIN,TOTAL 0.9 mg/dL (0.2-1.0); BUN - BLOOD UREA NITROGEN 32 mg/dL (6-20); CALCIUM 9.3 mg/dL (8.5-10.3); CARBON DIOXIDE - CO2 25 mmol/L (21-32); CHLORIDE 102 mmol/L (101-111); CHOL/HDL RATIO 2.2 (<4.4); CHOLESTEROL 126 mg/dL; CREATININE 1.3 mg/dL (0.4-1.0); GLUCOSE 93 mg/dL (70-100); HDL CHOLESTEROL 57 mg/dL; LDL CHOLESTEROL,CALCULATED 51 mg/dL; LDL/HDL RATIO 0.9 (<4.4); SODIUM 139 mmol/L (135-145); TOTAL PROTEIN 7.6 g/dL (6.7-8.2); VLDL CHOLESTEROL 18 mg/dL
== END 2020-10-06 23:59 | disposition home or self-care (01) ==
LOC: LAB.WCP 07:47
PROVIDERS: ATTEND Physician Assistant Medical
DX: E11.9 Type 2 diabetes mellitus without complications (principal); M05.79 Rheumatoid arthritis with rheumatoid factor of multiple sites without organ or systems involvement
CPT/HCPCS: 36415; 80053; 80061; 83036; 83721; 85025; 85651

== ENCOUNTER 2021-01-11 17:55 | Emergency (ER) | payer MEDICARE, MEDICAID ==
--- OUTSIDE RECORDS SUMMARY | 2021-01-11 18:10 | EXTERNAL MEDICAL SUMMARY RPT | Continuity of Care Document ---
:1950 Demographics Phone Unavailable Preferred Language Unknown Marital Status Unknown Zoroastrian Affiliation Unknown Race Unknown Ethnic Group Unknown Author Organization [facility] Address [address] [place] [address] Phone Social History date description facility [phone]
[2021-01-11 18:37] LABS: BASOPHILS % (AUTO) 0.3 %; EOSINOPHILS # (AUTO) 0.2 10^3/uL (0.0-0.7); EOSINOPHILS % (AUTO) 1.7 %; HCT - HEMATOCRIT 38.2 % (37.0-47.0); HGB - HEMOGLOBIN 12.4 g/dL (12.0-16.0); LYMPHOCYTES # (AUTO) 0.9 10^3/uL (1.5-3.5); LYMPHOCYTES % (AUTO) 9.9 %; MEAN CORPUSCULAR HEMOGLOBIN 29.9 pg (27.0-31.0); MEAN CORPUSCULAR HGB CONC 32.5 g/dL (32.0-36.0); MEAN PLATELET VOLUME 10.2 fL (7.9-10.8); MONOCYTES # (AUTO) 0.7 10^3/uL (0.0-1.0); MONOCYTES % (AUTO) 7.7 %; NEUTROPHILS # (AUTO) 7.1 10^3/uL (1.5-6.6); NEUTROPHILS % (AUTO) 80.2 %; PLT - PLATELET COUNT 224 10^3/uL (130-450); RED BLOOD COUNT 4.15 10^6/uL (4.20-5.40); RED CELL DISTRIBUTION WIDTH 14.3 % (12.0-15.0); WHITE BLOOD COUNT 8.8 x10^3/uL (4.8-10.8)
--- NOTE | 2021-01-11 18:44 | XRAY Report ---
PROCEDURE: Chest 1 View X-Ray INDICATIONS: Chest pain TECHNIQUE: One view of the chest was acquired. COMPARISON: 08/07/2019 and 06/24/2019 FINDINGS: Surgical changes and devices: None. Lungs and pleura: No pleural effusions or pneumothorax. Lungs are clear. Mediastinum: Mediastinal contours appear normal. Heart size is enlarged. Bones and chest wall: No suspicious bony lesions. Overlying soft tissues appear unremarkable. IMPRESSION: No acute cardiopulmonary process. Reviewed by: Francisco J Baca MD on 01/11/2021 5:43 PM AKDT Approved by: Francisco J Baca MD on 01/11/2021 5:43 PM AKDT Station ID: [id number]
[2021-01-11 18:52] LABS: ALBUMIN 4.1 g/dL (3.2-5.5); ALBUMIN/GLOBULIN RATIO 1.2 (1.0-2.2); BILIRUBIN,TOTAL 0.8 mg/dL (0.2-1.0); CALCIUM 9.3 mg/dL (8.5-10.3); CREATININE 1.3 mg/dL (0.4-1.0); TOTAL PROTEIN 7.5 g/dL (6.7-8.2)
--- NOTE | 2021-01-11 19:59 | ED Physician Documentation ---
History of Present Illness - Stated complaint Stated Complaint: CHEST PX/NUMBNESS LT ARM - Chief complaint Chief Complaint: Cardiac - History obtained from History obtained from: Patient - Additonal information Additional information: 70-year-old woman with history of CHF on home oxygen, pulmonary hypertension with recent adjustment in her medications presents with left-sided chest pain and right arm numbness intermittent since yesterday or the day before. She states that her Selexipag was increased to 800 mg on Friday and she has had some side effects from that. Patient has baseline dyspnea that she states is nonworsening. Denies pleurisy. When asked about onset, quality, radiation, timing of pain, and associated symptoms she states "I don't know". Limited historian. Review of Systems Ten Systems: 10 systems reviewed and negative Constitutional: denies: Fever Cardiac: reports: Chest pain / pressure Respiratory: reports: Dyspnea (dyspnea at baseline). 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: Other : Nocturia, Frequency HEENT: None Psych: Anxiety, Claustrophobia Musculoskeletal: Rheumatoid arthritis Derm: None - Past Surgical History Past Surgical History: Yes General: Colonoscopy Ortho: Knee replacement /JIG MAKER: Hysterectomy - Present Medications Home Medications: Ambulatory Orders Medication Instructions Recorded Confirmed Ferrous Gluconate 324 mg PO DAILY 12/24/18 01/11/21 Folic Acid 2 mg PO DAILY 12/24/18 01/11/21 Potassium Chloride 10 meq PO DAILYWM 12/24/18 01/11/21 Sitagliptin Phos/Metformin HCl 1 each PO DAILY 12/24/18 01/11/21 [Janumet Xr 100-1,000 mg Tablet] Omeprazole 20 mg PO DAILY 06/20/19 01/11/21 Rosuvastatin Calcium 40 mg PO DAILY 06/20/19 01/11/21 Ambrisentan 10 mg PO DAILY 01/11/21 01/11/21 Cyanocobalamin (Vitamin B-12) 2,500 mg PO DAILY 01/11/21 01/11/21 [Vitamin B-12 (500 mcg sublingual)] Fluticasone Propion/Salmeterol 1 inh INH DAILY 01/11/21 01/11/21 [Fluticasone-Salmeterol 500-50] Leflunomide [Arava] 20 mg PO DAILY 01/11/21 01/11/21 Magnesium Oxide [Mag-Oxide] 400 mg PO BID 01/11/21 01/11/21 Metoprolol Succinate [Toprol Xl] 12.5 mg PO BID 01/11/21 01/11/21 Prednisone 5 mg PO DAILY 01/11/21 01/11/21 Selexipag [Uptravi] 800 mcg PO BID 01/11/21 01/11/21 Sildenafil Citrate [Sildenafil] 20 mg PO TID 01/11/21 01/11/21 Tiotropium [place] [Spiriva] 1 inh INH DAILY 01/11/21 01/11/21 Torsemide 60 mg PO DAILY 01/11/21 01/11/21 - Allergies Allergies/Adverse Reactions: Allergies Allergy/AdvReac Type Severity Reaction Status Date / Time No Known Drug Allergies Allergy Verified 01/11/21 18:06 - Social History Does the pt smoke?: No Smoking Status: Never smoker Does the pt drink ETOH?: No Does the pt have substance abuse?: No - Immunizations Immunizations are current?: No Immunizations: TDAP >10years/unknown - POLST Patient has POLST: No POLST Status: Full Code PD ED PE NORMAL - Vitals Vital signs reviewed: Yes - General General: Alert and oriented X 3, No acute distress, Well developed/nourished - HEENT HEENT: Atraumatic, PERRL, EOMI - Neck Neck: Supple, no meningeal sign - Cardiac Cardiac: RRR - Respiratory Respiratory: No respiratory distress, Clear bilaterally - Abdomen Abdomen: Non tender, Non distended - Female Female : Deferred - Rectal Rectal: Deferred - Derm Derm: Normal color, Warm and dry - Extremities Extremities: No deformity - Neuro Neuro: Alert and oriented X 3 - Psych Psych: Normal mood, Normal affect Results - Vitals Vitals: Vital Signs - 24 hr 01/11/21 01/11/21 18:06 20:09 Temperature 36.5 C 36.6 C Heart Rate 86 85 Respiratory 16 20 Rate Blood Pressure 123/63 125/71 O2 Saturation 94 97 Oxygen O2 Source Nasal cannula - Labs Labs: Laboratory Tests 01/11/21 01/11/21 01/11/21 18:32 18:32 18:32 WBC 8.8 RBC 4.15 L Hgb 12.4 Hct 38.2 MCV 92.0 MCH 29.9 MCHC 32.5 RDW 14.3 Plt Count 224 MPV 10.2 Neut # (Auto) 7.1 H Lymph # (Auto) 0.9 L [place] # (Auto) 0.7 Eos # (Auto) 0.2 Baso # (Auto) 0.0 Absolute Nucleated RBC 0.00 Nucleated RBC % 0.0 Sodium 136 Potassium 4.0 Chloride 99 L Carbon Dioxide 26 Anion Gap 11.0 BUN 27 H Creatinine 1.3 H Estimated GFR (MDRD) 41 L Glucose 99 Calcium 9.3 Total Bilirubin 0.8 AST 31 ALT 28 Alkaline Phosphatase 76 Troponin I High Sens 15.4 H* B-Natriuretic Peptide Total Protein 7.5 Albumin 4.1 Globulin 3.4 Albumin/Globulin Ratio 1.2 Lipase 37 01/11/21 18:32 WBC RBC Hgb Hct MCV MCH MCHC RDW Plt Count MPV Neut # (Auto) Lymph # (Auto) [place] # (Auto) Eos # (Auto) Baso # (Auto) Absolute Nucleated RBC Nucleated RBC % Sodium Potassium Chloride Carbon Dioxide Anion Gap BUN Creatinine Estimated GFR (MDRD) Glucose Calcium Total Bilirubin AST ALT Alkaline Phosphatase Troponin I High Sens B-Natriuretic Peptide 277 H Total Protein Albumin Globulin Albumin/Globulin Ratio Lipase PD MEDICAL DECISION MAKING - ED course ED course: Contacted her son for further history and he states it is hard to get information from her but she has been feeling off ever since getting her second covid vaccine a while back. discussed that her chest xray is not showing acute findings and her labwork and ekgs are stable. Shared decision was made for her to follow up as an outpatient with her accident report clerk And reading recovery teacher.Strict return precautions given. Departure - Departure Disposition: 01 Home, Self Care Clinical Impression: Atypical chest pain, Right arm numbness Condition: Good Instructions: ED Chest Pain Atypical Unkn Cause Follow-Up: MITCH RAM MD [Physician No Access] - Comments: You have been seen in the emergency department for chest pain and arm numbness. Your blood work, EKG, and chest x-ray did not show an obvious cause for your pain. It is possible that this is a side effect of your selexipag medication that you increased on Friday, since that seems to be correlating to your symptom onset. Please return to the emergency department if you develop worsening symptoms, have new symptoms or other concerns. Follow-up with your accident report clerk and your reading recovery teacher this week.
[2021-01-11 20:16] VITALS: BP 125/71
== END 2021-01-11 20:46 | disposition home or self-care (01) ==
LOC: ED 17:55
DX: R07.89 Other chest pain (principal); R20.0 Anesthesia of skin; I27.20 Pulmonary hypertension, unspecified; I50.9 Heart failure, unspecified; J44.9 Chronic obstructive pulmonary disease, unspecified; E11.9 Type 2 diabetes mellitus without complications; Z79.84 Long term (current) use of oral hypoglycemic drugs; Z99.81 Dependence on supplemental oxygen
CPT/HCPCS: 36415; 80053; 83690; 83880; 84484; 85025; 93005; 99284

== ENCOUNTER 2021-04-06 08:00 | Outpatient (CLI) | payer MEDICARE, MEDICAID ==
[2021-04-06 12:57] LABS: ESTIMATED AVERAGE GLUCOSE 111 mg/dL (70-100); HEMOGLOBIN A1c% 5.5 % (4.27-6.07)
[2021-04-06 13:25] LABS: ALBUMIN 4.3 g/dL (3.2-5.5); ALBUMIN/GLOBULIN RATIO 1.3 (1.0-2.2); ALKALINE PHOSPHATASE 67 IU/L (42-121); ALT ALANINE AMINOTRANSFERASE 26 IU/L (10-60); AST ASPARTATE AMINOTRANSFERASE 30 IU/L (10-42); BILIRUBIN,TOTAL 0.6 mg/dL (0.2-1.0); BUN - BLOOD UREA NITROGEN 33 mg/dL (6-20); CALCIUM 9.5 mg/dL (8.5-10.3); CARBON DIOXIDE - CO2 29 mmol/L (21-32); CHLORIDE 99 mmol/L (101-111); CHOL/HDL RATIO 2.8 (<4.4); CHOLESTEROL 149 mg/dL; CREATININE 1.3 mg/dL (0.4-1.0); GFR - MDRD 41 (>89); GLUCOSE 95 mg/dL (70-100); HDL CHOLESTEROL 54 mg/dL; LDL CHOLESTEROL,CALCULATED 71 mg/dL; LDL/HDL RATIO 1.3 (<4.4); POTASSIUM 3.7 mmol/L (3.5-5.0); SODIUM 139 mmol/L (135-145); TOTAL PROTEIN 7.7 g/dL (6.7-8.2); TRIGLYCERIDES 120 mg/dL; VLDL CHOLESTEROL 24 mg/dL
== END 2021-04-06 23:59 | disposition home or self-care (01) ==
LOC: LAB.WCP 08:00
PROVIDERS: ATTEND Physician Assistant Medical
DX: E11.9 Type 2 diabetes mellitus without complications (principal)
CPT/HCPCS: 36415; 80053; 80061; 83036; 83721

== ENCOUNTER 2021-08-06 08:00 | Outpatient (CLI) | payer MEDICARE, MEDICAID ==
[2021-08-06 18:01] LABS: BASOPHILS % (AUTO) 0.5 %; EOSINOPHILS # (AUTO) 0.2 10^3/uL (0.0-0.7); EOSINOPHILS % (AUTO) 2.1 %; HGB - HEMOGLOBIN 12.5 g/dL (12.0-16.0); LYMPHOCYTES # (AUTO) 0.8 10^3/uL (1.5-3.5); LYMPHOCYTES % (AUTO) 10.3 %; MEAN CORPUSCULAR HEMOGLOBIN 29.1 pg (27.0-31.0); MEAN CORPUSCULAR HGB CONC 30.5 g/dL (32.0-36.0); MEAN CORPUSCULAR VOLUME 95.6 fL (81.0-99.0); MEAN PLATELET VOLUME 11.1 fL (7.9-10.8); MONOCYTES # (AUTO) 0.6 10^3/uL (0.0-1.0); MONOCYTES % (AUTO) 7.3 %; NEUTROPHILS # (AUTO) 6.3 10^3/uL (1.5-6.6); NEUTROPHILS % (AUTO) 79.7 %; PLT - PLATELET COUNT 248 10^3/uL (130-450); RED BLOOD COUNT 4.29 10^6/uL (4.20-5.40); RED CELL DISTRIBUTION WIDTH 14.4 % (12.0-15.0); WHITE BLOOD COUNT 7.9 x10^3/uL (4.8-10.8)
[2021-08-06 19:28] LABS: ALBUMIN 4.4 g/dL (3.2-5.5); ALBUMIN/GLOBULIN RATIO 1.3 (1.0-2.2); BILIRUBIN,TOTAL 0.9 mg/dL (0.2-1.0); CREATININE 1.1 mg/dL (0.4-1.0); POTASSIUM 3.6 mmol/L (3.5-5.0); TOTAL PROTEIN 7.8 g/dL (6.7-8.2)
[2021-08-06 19:31] LABS: CREATININE,URINE 90.3 mg/dL; MICROALBUM/CREATININE RATIO,UR 15.5 ug/mg (<30.0); MICROALBUMIN,URINE 1.4 mg/dL (0-300.0)
[2021-08-06 19:42] LABS: THYROID STIMULATING HORMONE 0.87 uIU/mL (0.34-5.60)
[2021-08-06 20:37] LABS: ESTIMATED AVERAGE GLUCOSE 117 mg/dL (70-100); HEMOGLOBIN A1c% 5.7 % (4.27-6.07)
== END 2021-08-06 08:01 | disposition home or self-care (01) ==
LOC: LAB.N 08:00
PROVIDERS: ATTEND Family Medicine
DX: E11.22 Type 2 diabetes mellitus with diabetic chronic kidney disease (principal); N18.4 Chronic kidney disease, stage 4 (severe)
CPT/HCPCS: 36415; 80053; 82043; 82570; 83036; 84443; 85025

== ENCOUNTER 2021-09-19 07:24 | Outpatient (CLI) | payer MEDICARE, MEDICAID ==
[2021-09-19 12:59] LABS: ESTIMATED AVERAGE GLUCOSE 117 mg/dL (70-100); HEMOGLOBIN A1c% 5.7 % (4.27-6.07)
== END 2021-09-19 23:59 | disposition home or self-care (01) ==
LOC: LAB.WCP 07:24
PROVIDERS: ATTEND Physician Assistant Medical
DX: E11.9 Type 2 diabetes mellitus without complications (principal)
CPT/HCPCS: 36415; 83036

== ENCOUNTER 2021-11-06 10:57 | Outpatient (CLI) | payer MEDICARE, MEDICAID ==
--- NOTE | 2021-11-06 12:45 | DEXA Report ---
PROCEDURE: Dexa Spine and/or Hip INDICATIONS: OSTEOPOROSIS TECHNIQUE: Dual energy x-ray absorptiometry (DXA) was performed on a [employer]. Regions measur ed are the AP Spine, femoral neck, and if needed forearm. COMPARISON: March 04, 2018. FINDINGS: Lumbar Spine: Bone Mineral Density 0.987 g/cm/cm,T score -1.6, osteopenia. Left Femoral Neck: Bone Mineral Density 0.720 g/cm/cm, T score -2.3, osteopenia. Total:: Bone Mineral Density 0.784 g/cm/cm, T score -1.8, osteopenia. (T score greater or equal to -1.0: NORMAL) (T score from -1.1 to -2.4: OSTEOPENIA) (T score less than or equal to -2.5 to: OSTEOPOROSIS) Impression: Bone mineral density as detailed above. Patients with diagnosis of osteoporosis or osteopenia should have regular bone mineral density assess ment. For those eligible for Medicare, routine testing is allowed once every 2 years. Testing frequ ency can be increased for patients who have rapidly progressing disease or for those who are receivin g medical therapy to restore bone mass. Reviewed by: Candelario Miller MD on 11/06/2021 12:44 PM PST Approved by: Candelario Miller MD on 11/06/2021 12:44 PM PST Station ID: [id number]
== END 2021-11-06 10:58 | disposition home or self-care (01) ==
LOC: DI 10:57
PROVIDERS: ATTEND Internal Medicine Rheumatology
DX: M81.0 Age-related osteoporosis without current pathological fracture (principal); M85.89 Other specified disorders of bone density and structure, multiple sites

== ENCOUNTER 2021-12-21 07:25 | Outpatient (CLI) | payer MEDICARE, MEDICAID ==
[2021-12-21 12:16] LABS: CREATININE,URINE 146.2 mg/dL; MICROALBUM/CREATININE RATIO,UR 8.2 ug/mg (<30.0); MICROALBUMIN,URINE 1.2 mg/dL (0-300.0)
[2021-12-21 12:39] LABS: ALBUMIN 4.1 g/dL (3.2-5.5); ALBUMIN/GLOBULIN RATIO 1.2 (1.0-2.2); ALKALINE PHOSPHATASE 64 IU/L (42-121); ALT ALANINE AMINOTRANSFERASE 23 IU/L (10-60); AST ASPARTATE AMINOTRANSFERASE 25 IU/L (10-42); BILIRUBIN,TOTAL 0.7 mg/dL (0.2-1.0); BUN - BLOOD UREA NITROGEN 25 mg/dL (6-20); CALCIUM 9.1 mg/dL (8.5-10.3); CARBON DIOXIDE - CO2 28 mmol/L (21-32); CHLORIDE 100 mmol/L (101-111); CHOL/HDL RATIO 2.2 (<4.4); CHOLESTEROL 142 mg/dL; CREATININE 1.2 mg/dL (0.4-1.0); GFR - MDRD 44 (>89); GLUCOSE 110 mg/dL (70-100); HDL CHOLESTEROL 64 mg/dL; LDL CHOLESTEROL,CALCULATED 57 mg/dL; LDL/HDL RATIO 0.9 (<4.4); POTASSIUM 3.5 mmol/L (3.5-5.0); SODIUM 142 mmol/L (135-145); TOTAL PROTEIN 7.4 g/dL (6.7-8.2); TRIGLYCERIDES 104 mg/dL; VLDL CHOLESTEROL 21 mg/dL
[2021-12-21 14:49] LABS: ESTIMATED AVERAGE GLUCOSE 128 mg/dL (70-100); HEMOGLOBIN A1c% 6.1 % (4.27-6.07)
== END 2021-12-21 07:26 | disposition home or self-care (01) ==
LOC: LAB.N 07:25
PROVIDERS: ATTEND Physician Assistant Medical
DX: E11.9 Type 2 diabetes mellitus without complications (principal)
CPT/HCPCS: 36415; 80053; 80061; 82043; 82570; 83036; 83721

== ENCOUNTER 2022-03-19 07:46 | Outpatient (CLI) | payer MEDICARE, MEDICAID ==
[2022-03-19 12:17] LABS: CREATININE 1.2 mg/dL (0.4-1.0); ESTIMATED AVERAGE GLUCOSE 123 mg/dL (70-100); HEMOGLOBIN A1c% 5.9 % (4.27-6.07); POTASSIUM 3.5 mmol/L (3.5-5.0)
== END 2022-03-19 07:47 | disposition home or self-care (01) ==
LOC: LAB.N 07:46
PROVIDERS: ATTEND Physician Assistant Medical
DX: E11.9 Type 2 diabetes mellitus without complications (principal)
CPT/HCPCS: 36415; 80048; 83036

== ENCOUNTER 2022-04-18 09:06 | Emergency (ER) | payer MEDICARE, MEDICAID ==
--- NOTE | 2022-04-18 09:42 | ED Physician Documentation ---
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 : Nocturia, Frequency HEENT: None Psych: Anxiety, Claustrophobia Musculoskeletal: Rheumatoid arthritis Derm: None - Past Surgical History Past Surgical History: Yes General: Colonoscopy Ortho: Knee replacement /PASTORAL COUNSELOR: Hysterectomy - Present Medications Home Medications: Ambulatory Orders Medication Instructions Recorded Confirmed Ferrous Gluconate 324 mg PO DAILY 12/24/18 01/11/21 Folic Acid 2 mg PO DAILY 12/24/18 01/11/21 Potassium Chloride 10 meq PO DAILYWM 12/24/18 01/11/21 Sitagliptin Phos/Metformin HCl 1 each PO DAILY 12/24/18 01/11/21 [Janumet Xr 100-1,000 mg Tablet] Omeprazole 20 mg PO DAILY 06/20/19 01/11/21 Rosuvastatin Calcium 40 mg PO DAILY 06/20/19 01/11/21 Ambrisentan 10 mg PO DAILY 01/11/21 01/11/21 Cyanocobalamin (Vitamin B-12) 2,500 mg PO DAILY 01/11/21 01/11/21 [Vitamin B-12 (500 mcg sublingual)] Fluticasone Propion/Salmeterol 1 inh INH DAILY 01/11/21 01/11/21 [Fluticasone-Salmeterol 500-50] Leflunomide [Arava] 20 mg PO DAILY 01/11/21 01/11/21 Magnesium Oxide [Mag-Oxide] 400 mg PO BID 01/11/21 01/11/21 Metoprolol Succinate [Toprol Xl] 12.5 mg PO BID 01/11/21 01/11/21 Selexipag [Uptravi] 800 mcg PO BID 01/11/21 01/11/21 Sildenafil Citrate [Sildenafil] 20 mg PO TID 01/11/21 01/11/21 Tiotropium [place] [Spiriva] 1 inh INH DAILY 01/11/21 01/11/21 Torsemide 60 mg PO DAILY 01/11/21 01/11/21 predniSONE [Prednisone] 5 mg PO DAILY 01/11/21 01/11/21 - Allergies Allergies/Adverse Reactions: Allergies Allergy/AdvReac Type Severity Reaction Status Date / Time No Known Drug Allergies Allergy Verified 01/11/21 18:06 - Social History Does the pt smoke?: No Smoking Status: Never smoker Does the pt drink ETOH?: No Does the pt have substance abuse?: No - Immunizations Immunizations are current?: No Immunizations: TDAP >10years/unknown - POLST Patient has POLST: No POLST Status: Full Code Results - Vitals Vitals: Vital Signs - 24 hr 04/18/22 04/18/22 09:24 09:29 Temperature 36.3 C L Heart Rate 108 H Respiratory 18 Rate Blood Pressure 161/92 H O2 Saturation 100 Oxygen O2 Source Nasal cannula
[2022-04-18 10:00] LABS: BASOPHILS % (AUTO) 0.4 %; EOSINOPHILS # (AUTO) 0.2 10^3/uL (0.0-0.7); EOSINOPHILS % (AUTO) 2.1 %; HCT - HEMATOCRIT 40.6 % (37.0-47.0); HGB - HEMOGLOBIN 13.1 g/dL (12.0-16.0); LYMPHOCYTES # (AUTO) 0.9 10^3/uL (1.5-3.5); LYMPHOCYTES % (AUTO) 9.5 %; MEAN CORPUSCULAR HGB CONC 32.3 g/dL (32.0-36.0); MEAN CORPUSCULAR VOLUME 89.8 fL (81.0-99.0); MEAN PLATELET VOLUME 9.9 fL (7.9-10.8); MONOCYTES # (AUTO) 0.7 10^3/uL (0.0-1.0); MONOCYTES % (AUTO) 7.8 %; NEUTROPHILS # (AUTO) 7.3 10^3/uL (1.5-6.6); NEUTROPHILS % (AUTO) 79.9 %; PLT - PLATELET COUNT 248 10^3/uL (130-450); RED BLOOD COUNT 4.52 10^6/uL (4.20-5.40); RED CELL DISTRIBUTION WIDTH 14.6 % (12.0-15.0); WHITE BLOOD COUNT 9.1 x10^3/uL (4.8-10.8)
[2022-04-18 10:12] LABS: BILIRUBIN,URINE NEGATIVE (NEGATIVE); CLARITY,URINE CLEAR (CLEAR); GLUCOSE, URINE (UA) NEGATIVE (NEGATIVE); KETONES,URINE (UA) NEGATIVE (NEGATIVE); LEUKOCYTE ESTERASE, URINE NEGATIVE (NEGATIVE); NITRITE,URINE NEGATIVE (NEGATIVE); OCCULT BLOOD,URINE NEGATIVE (NEGATIVE); PROTEIN,URINE NEGATIVE (NEGATIVE); UROBILINOGEN,URINE 0.2 (NORMAL) E.U./dL (NORMAL)
[2022-04-18 10:15] LABS: ALBUMIN 4.3 g/dL (3.2-5.5); ALBUMIN/GLOBULIN RATIO 1.2 (1.0-2.2); BILIRUBIN,TOTAL 0.8 mg/dL (0.2-1.0); CALCIUM 9.7 mg/dL (8.5-10.3); CREATININE 1.3 mg/dL (0.4-1.0); TOTAL PROTEIN 7.9 g/dL (6.7-8.2)
--- NOTE | 2022-04-18 10:59 | XRAY Report ---
PROCEDURE: Chest 1 View X-Ray INDICATIONS: Generalized weakness TECHNIQUE: One view of the chest was acquired. COMPARISON: 01/11/2021 FINDINGS: Surgical changes and devices: None. Lungs and pleura: No pleural effusions or pneumothorax. Lungs are clear. Mediastinum: Mediastinal contours appear normal. Heart size is normal. Bones and chest wall: No suspicious bony lesions. Overlying soft tissues appear unremarkable. IMPRESSION: No acute cardiopulmonary process demonstrated radiographically. Reviewed by: Gerhard Aranda MD on 04/18/2022 10:58 AM PDT Approved by: Gerhard Aranda MD on 04/18/2022 10:58 AM PDT Station ID: [id number]
--- NOTE | 2022-04-18 11:22 | ED Physician Documentation ---
History of Present Illness - Stated complaint Stated Complaint: WEAKNESS - Chief complaint Chief Complaint: Resp - History obtained from History obtained from: Patient - History of Present Illness Timing: How many weeks ago (1) Pain level max: 0 Pain level now: 0 - Additonal information Additional information: 71-year-old female with history of COPD on 4 L O2, CHF presents by private vehicle for 1 week of lightheadedness and a woozy sensation. Patient states that symptoms began after starting spironolactone. Patient states that she was started on spironolactone for her congestive heart failure because the other medicines were making her potassium too low. Patient states that she has been taking her medications as prescribed, she was warned by the pharmacist that this can make her lightheaded, however she is stating that it is so bad that she is sometimes afraid to use her walker. Patient is also complaining of 2 days of bright red blood on the toilet tissue when she wipes. She states that she has previously been diagnosed with internal hemorrhoids. Patient denies chest pain, states that her shortness of breath is chronic and at baseline, denies leg swelling, abdominal pain, syncope, falls, other complaints at this time. Review of Systems Ten Systems: 10 systems reviewed and negative Constitutional: denies: Fever, Chills Respiratory: denies: Dyspnea, Cough, Wheezing GI: reports: Other (blood on toilet tissue). denies: Abdominal Pain, Abdominal Swelling, Nausea, Vomiting, Constipation, Diarrhea, Hematemesis Skin: denies: Rash, Abrasion (s) Neurologic: reports: Other (lightheaded). 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 : Nocturia, Frequency HEENT: None Psych: Anxiety, Claustrophobia Musculoskeletal: Rheumatoid arthritis Derm: None - Past Surgical History Past Surgical History: Yes General: Colonoscopy Ortho: Knee replacement /SUPERVISOR POST WAVE: Hysterectomy - Present Medications Home Medications: Ambulatory Orders Medication Instructions Recorded Confirmed Ferrous Gluconate 324 mg PO DAILY 12/24/18 01/11/21 Folic Acid 2 mg PO DAILY 12/24/18 01/11/21 Potassium Chloride 10 meq PO DAILYWM 12/24/18 01/11/21 Sitagliptin Phos/Metformin HCl 1 each PO DAILY 12/24/18 01/11/21 [Janumet Xr 100-1,000 mg Tablet] Omeprazole 20 mg PO DAILY 06/20/19 01/11/21 Rosuvastatin Calcium 40 mg PO DAILY 06/20/19 01/11/21 Ambrisentan 10 mg PO DAILY 01/11/21 01/11/21 Cyanocobalamin (Vitamin B-12) 2,500 mg PO DAILY 01/11/21 01/11/21 [Vitamin B-12 (500 mcg sublingual)] Fluticasone Propion/Salmeterol 1 inh INH DAILY 01/11/21 01/11/21 [Fluticasone-Salmeterol 500-50] Leflunomide [Arava] 20 mg PO DAILY 01/11/21 01/11/21 Magnesium Oxide [Mag-Oxide] 400 mg PO BID 01/11/21 01/11/21 Metoprolol Succinate [Toprol Xl] 12.5 mg PO BID 01/11/21 01/11/21 Selexipag [Uptravi] 800 mcg PO BID 01/11/21 01/11/21 Sildenafil Citrate [Sildenafil] 20 mg PO TID 01/11/21 01/11/21 Tiotropium [place] [Spiriva] 1 inh INH DAILY 01/11/21 01/11/21 Torsemide 60 mg PO DAILY 01/11/21 01/11/21 predniSONE [Prednisone] 5 mg PO DAILY 01/11/21 01/11/21 - Allergies Allergies/Adverse Reactions: Allergies Allergy/AdvReac Type Severity Reaction Status Date / Time No Known Drug Allergies Allergy Verified 01/11/21 18:06 - Social History Does the pt smoke?: No Smoking Status: Never smoker Does the pt drink ETOH?: No Does the pt have substance abuse?: No - Immunizations Immunizations are current?: No Immunizations: TDAP >10years/unknown - POLST Patient has POLST: No POLST Status: Full Code PD ED PE NORMAL - Vitals Vital signs reviewed: Yes - General General: Alert and oriented X 3, No acute distress, Well developed/nourished, Other (appears chronically unwell) - HEENT HEENT: Atraumatic, PERRL, EOMI, Ears normal - Neck Neck: Supple, no meningeal sign, No bony TTP, No adenopathy - Cardiac Cardiac: No murmur, No gallop, No rub, Other (tachycardia) - Respiratory Respiratory: No respiratory distress, Clear bilaterally, Other (on NC) - Abdomen Abdomen: Soft, Non tender, Non distended, No organomegaly - Rectal Rectal: Other (Hemorrhoids present, no gross blood, rectal tone normal) - Back Back: No CVA TTP - Derm Derm: Normal color, Warm and dry, No rash, Other - Extremities Extremities: No deformity, No tenderness to palpate, Normal ROM s pain, No edema, No calf tenderness / cord, Other - Neuro Neuro: Alert and oriented X 3, car unloader 2-12 intact, No motor deficit, No sensory deficit, Normal speech, Other - Psych Psych: Normal mood, Normal affect, Other Results - Vitals Vitals: Vital Signs - 24 hr 04/18/22 04/18/22 04/18/22 09:24 09:29 11:50 Temperature 36.3 C L Heart Rate 108 H 95 Respiratory 18 20 Rate Blood Pressure 161/92 H 133/72 H O2 Saturation 100 99 Oxygen O2 Source Nasal cannula Oxygen Flow Rate 4 - Labs Labs: Laboratory Tests 04/18/22 04/18/22 04/18/22 09:18 09:55 09:55 WBC 9.1 RBC 4.52 Hgb 13.1 Hct 40.6 MCV 89.8 MCH 29.0 MCHC 32.3 RDW 14.6 Plt Count 248 MPV 9.9 Neut # (Auto) 7.3 H Lymph # (Auto) 0.9 L [place] # (Auto) 0.7 Eos # (Auto) 0.2 Baso # (Auto) 0.0 Absolute Nucleated RBC 0.00 Nucleated RBC % 0.0 Sodium 139 Potassium 4.0 Chloride 100 L Carbon Dioxide 29 Anion Gap 10.0 BUN 25 H Creatinine 1.3 H Estimated GFR (MDRD) 40 L Glucose 135 H Calcium 9.7 Total Bilirubin 0.8 AST 24 ALT 23 Alkaline Phosphatase 73 Troponin I High Sens B-Natriuretic Peptide Total Protein 7.9 Albumin 4.3 Globulin 3.6 Albumin/Globulin Ratio 1.2 Urine Color LT. YELLOW Urine Clarity CLEAR Urine pH 6.0 Ur Specific [place] 1.010 Urine Protein NEGATIVE Urine Glucose (UA) NEGATIVE Urine Ketones NEGATIVE Urine Occult Blood NEGATIVE Urine Nitrite NEGATIVE Urine Bilirubin NEGATIVE Urine Urobilinogen 0.2 (NORMAL) Ur Leukocyte Esterase NEGATIVE Ur Microscopic Review NOT INDICATED Urine Culture Comments NOT INDICATED 04/18/22 04/18/22 09:55 09:55 WBC RBC Hgb Hct MCV MCH MCHC RDW Plt Count MPV Neut # (Auto) Lymph # (Auto) [place] # (Auto) Eos # (Auto) Baso # (Auto) Absolute Nucleated RBC Nucleated RBC % Sodium Potassium Chloride Carbon Dioxide Anion Gap BUN Creatinine Estimated GFR (MDRD) Glucose Calcium Total Bilirubin AST ALT Alkaline Phosphatase Troponin I High Sens 10.8 B-Natriuretic Peptide 19 Total Protein Albumin Globulin Albumin/Globulin Ratio Urine Color Urine Clarity Urine pH Ur Specific [place] Urine Protein Urine Glucose (UA) Urine Ketones Urine Occult Blood Urine Nitrite Urine Bilirubin Urine Urobilinogen Ur Leukocyte Esterase Ur Microscopic Review Urine Culture Comments PD MEDICAL DECISION MAKING - ED course Complexity details: reviewed results, re-evaluated patient ED course: Chronically unwell appearing but not acutely toxic patient with 1 week of symptoms. Neurologically intact, no focal deficit. Workup initiated. Labs and imaging are unremarkable. Patient hemodynamically stable, reports feeling well when she is sitting in the bed. Abdomen soft, no evidence of bleeding while in the department, hemoglobin normal range. Patient and her family were consulted on all findings, stated that no acute cause of the patient symptoms were found. Family at bedside states that they think this is a medication side effect from initiating the new spironolactone and will call her primary doctor for an appointment. Departure - Departure Disposition: 01 Home, Self Care Clinical Impression: Generalized weakness Hemorrhoids Qualifiers: Hemorrhoid type: unspecified Qualified Code(s): K64.9 - Unspecified hemorrhoids Instructions: Diuretic, Potassium, ED Hemorrhoids Discharge Date/Time: 04/18/22 12:00
[2022-04-18 11:51] VITALS: BP 133/72
== END 2022-04-18 12:00 | disposition home or self-care (01) ==
LOC: ED 09:06
DX: R53.1 Weakness (principal); Z79.4 Long term (current) use of insulin; I10 Essential (primary) hypertension; E11.9 Type 2 diabetes mellitus without complications; K64.9 Unspecified hemorrhoids
CPT/HCPCS: 36415; 80053; 81001; 81003; 83880; 84484; 85025; 87086; 93005; 99282; 99284

== ENCOUNTER 2022-06-18 07:29 | Outpatient (CLI) | payer MEDICARE, MEDICAID ==
[2022-06-18 13:25] LABS: BUN - BLOOD UREA NITROGEN 28 mg/dL (6-20); CALCIUM 9.9 mg/dL (8.5-10.3); CARBON DIOXIDE - CO2 28 mmol/L (21-32); CHLORIDE 103 mmol/L (101-111); CHOL/HDL RATIO 2.7 (<4.4); CHOLESTEROL 156 mg/dL; CREATININE 1.4 mg/dL (0.4-1.0); GFR - MDRD 37 (>89); GLUCOSE 113 mg/dL (70-100); HDL CHOLESTEROL 57 mg/dL; LDL CHOLESTEROL,CALCULATED 73 mg/dL; LDL/HDL RATIO 1.3 (<4.4); POTASSIUM 3.7 mmol/L (3.5-5.0); SODIUM 140 mmol/L (135-145); TRIGLYCERIDES 130 mg/dL; VLDL CHOLESTEROL 26 mg/dL
[2022-06-18 13:58] LABS: ESTIMATED AVERAGE GLUCOSE 134 mg/dL (70-100); HEMOGLOBIN A1c% 6.3 % (4.27-6.07)
== END 2022-06-18 07:30 | disposition home or self-care (01) ==
LOC: LAB.N 07:29
PROVIDERS: ATTEND Physician Assistant Medical
DX: E11.9 Type 2 diabetes mellitus without complications (principal)
CPT/HCPCS: 36415; 80048; 80061; 83036; 83721

== ENCOUNTER 2022-07-18 12:36 | Outpatient (CLI) | payer MEDICARE, MEDICAID ==
--- NOTE | 2022-07-19 09:43 | Mammography Report ---
BILATERAL DIGITAL SCREENING MAMMOGRAM 3D/2D: 07/18/2022 CLINICAL: Routine screening. Comparison is made to exams dated: 08/01/2017 mammogram, 07/24/2016 mammogram, 07/07/2015 mammogram, mammogram, 05/16/2014 mammogram, and 12/17/2011 mammogram - [facility]. There are scattered areas of fibroglandular density in both breasts (category b / 25%-50% glandular t issue). There are benign vascular calcifications in both breasts. No significant masses, calcifications, or other findings are seen in either breast. There has been no significant interval change. IMPRESSION: BENIGN There is no mammographic evidence of malignancy. A 1 year screening mammogram is recommended. Based on the Tyrer Cuzick model (a risk assessment model) the patients lifetime risk is 3.8% and her 10 year risk is 2.4%. According to the ACR, ACS, and NCCN guidelines, an annual breast MRI exam baltazar g with mammogram is recommended if the patients lifetime risk is 20% or greater. This exam was interpreted at Station ID: [id number]. NOTE: For mammograms, a report in lay terms will be sent to the patient. Approximately 15% of breast malignancies will not be visualized mammographically. In the management of a palpable breast mass, a negative mammogram must not discourage biopsy of a clinically suspicious lesion. Electronically Signed By: Erlinda cisneros/kacey:07/18/2022 21:44:49 ACR BI-RADS Category 2: Benign Finding(s) 3342F PARENCHYMAL PATTERN: (A) - The breast(s) demonstrate(s) scattered fibroglandular densities. BI-RADS CATEGORY: (2) - 2 RECOMMENDATION: (ANNUAL) - Recommend routine annual screening mammography. [id number] 1 year screening LATERALITY: (B)
== END 2022-07-18 12:37 | disposition home or self-care (01) ==
LOC: DI.N 12:36
DX: Z12.31 Encounter for screening mammogram for malignant neoplasm of breast (principal)

== ENCOUNTER 2022-10-18 08:12 | Outpatient (CLI) | payer MEDICARE, MEDICAID ==
[2022-10-18 12:50] LABS: BASOPHILS # (AUTO) 0.1 10^3/uL (0.0-0.1); BASOPHILS % (AUTO) 0.8 %; EOSINOPHILS # (AUTO) 0.2 10^3/uL (0.0-0.7); EOSINOPHILS % (AUTO) 2.6 %; HCT - HEMATOCRIT 40.9 % (37.0-47.0); HGB - HEMOGLOBIN 12.7 g/dL (12.0-16.0); LYMPHOCYTES # (AUTO) 1.2 10^3/uL (1.5-3.5); LYMPHOCYTES % (AUTO) 13.5 %; MEAN CORPUSCULAR HEMOGLOBIN 28.7 pg (27.0-31.0); MEAN CORPUSCULAR HGB CONC 31.1 g/dL (32.0-36.0); MEAN CORPUSCULAR VOLUME 92.5 fL (81.0-99.0); MEAN PLATELET VOLUME 10.9 fL (7.9-10.8); MONOCYTES # (AUTO) 0.7 10^3/uL (0.0-1.0); MONOCYTES % (AUTO) 7.8 %; NEUTROPHILS # (AUTO) 6.7 10^3/uL (1.5-6.6); PLT - PLATELET COUNT 293 10^3/uL (130-450); RED BLOOD COUNT 4.42 10^6/uL (4.20-5.40); RED CELL DISTRIBUTION WIDTH 14.1 % (12.0-15.0); WHITE BLOOD COUNT 8.9 x10^3/uL (4.8-10.8)
[2022-10-18 13:27] LABS: ALBUMIN 4.6 g/dL (3.2-5.5); ALBUMIN/GLOBULIN RATIO 1.4 (1.0-2.2); BILIRUBIN,TOTAL 0.7 mg/dL (0.2-1.0); CALCIUM 9.7 mg/dL (8.5-10.3); CREATININE 1.6 mg/dL (0.4-1.0); POTASSIUM 3.6 mmol/L (3.5-5.0)
== END 2022-10-18 08:13 | disposition home or self-care (01) ==
LOC: LAB.N 08:12
PROVIDERS: ATTEND Physician Assistant Medical
DX: M06.9 Rheumatoid arthritis, unspecified (principal)
CPT/HCPCS: 36415; 80053; 85025; 85651

== ENCOUNTER 2022-12-19 08:17 | Outpatient (CLI) | payer MEDICARE, MEDICAID ==
[2022-12-19 12:24] LABS: ESTIMATED AVERAGE GLUCOSE 128 mg/dL (70-100); HEMOGLOBIN A1c% 6.1 % (4.27-6.07)
== END 2022-12-19 08:18 | disposition home or self-care (01) ==
LOC: LAB.N 08:17
PROVIDERS: ATTEND Physician Assistant Medical
DX: E11.9 Type 2 diabetes mellitus without complications (principal)
CPT/HCPCS: 36415; 83036

== ENCOUNTER 2023-03-26 11:43 | Outpatient (CLI) | payer MEDICARE, MEDICAID ==
[2023-03-26 17:50] LABS: BASOPHILS # (AUTO) 0.1 10^3/uL (0.0-0.1); BASOPHILS % (AUTO) 0.4 %; EOSINOPHILS # (AUTO) 0.2 10^3/uL (0.0-0.7); EOSINOPHILS % (AUTO) 1.7 %; HCT - HEMATOCRIT 38.9 % (37.0-47.0); HGB - HEMOGLOBIN 12.1 g/dL (12.0-16.0); LYMPHOCYTES # (AUTO) 0.9 10^3/uL (1.5-3.5); LYMPHOCYTES % (AUTO) 6.6 %; MEAN CORPUSCULAR HEMOGLOBIN 28.5 pg (27.0-31.0); MEAN CORPUSCULAR HGB CONC 31.1 g/dL (32.0-36.0); MEAN CORPUSCULAR VOLUME 91.7 fL (81.0-99.0); MEAN PLATELET VOLUME 10.6 fL (7.9-10.8); MONOCYTES # (AUTO) 0.7 10^3/uL (0.0-1.0); MONOCYTES % (AUTO) 4.9 %; NEUTROPHILS # (AUTO) 11.4 10^3/uL (1.5-6.6); NEUTROPHILS % (AUTO) 86.1 %; PLT - PLATELET COUNT 291 10^3/uL (130-450); RED BLOOD COUNT 4.24 10^6/uL (4.20-5.40); RED CELL DISTRIBUTION WIDTH 14.1 % (12.0-15.0); WHITE BLOOD COUNT 13.3 x10^3/uL (4.8-10.8)
[2023-03-26 18:14] LABS: ALBUMIN 4.7 g/dL (3.2-5.5); ALBUMIN/GLOBULIN RATIO 1.4 (1.0-2.2); BILIRUBIN,TOTAL 0.6 mg/dL (0.2-1.0); CALCIUM 9.5 mg/dL (8.5-10.3); CREATININE 1.3 mg/dL (0.4-1.0); POTASSIUM 4.3 mmol/L (3.5-5.0)
[2023-03-26 18:22] LABS: THYROID STIMULATING HORMONE 1.07 uIU/mL (0.34-5.60)
[2023-03-26 18:30] LABS: FERRITIN 122.3 ng/mL (11.0-306.8)
[2023-03-26 19:21] LABS: FOLATE > 49.60 ng/mL (5.90 - >24.8)
[2023-03-26 20:19] LABS: ESTIMATED AVERAGE GLUCOSE 134 mg/dL (70-100); HEMOGLOBIN A1c% 6.3 % (4.27-6.07)
== END 2023-03-26 11:44 | disposition home or self-care (01) ==
LOC: LAB.N 11:43
PROVIDERS: ATTEND Physician Assistant Medical
DX: E11.9 Type 2 diabetes mellitus without complications (principal); D64.9 Anemia, unspecified
CPT/HCPCS: 36415; 80053; 82607; 82728; 82746; 83036; 84443; 85025

== ENCOUNTER 2023-04-03 07:41 | Outpatient (CLI) | payer MEDICARE, MEDICAID ==
[2023-04-03 07:48] LABS: ABNORMAL LYMPHS % (MANUAL) 0 %
[2023-04-03 12:12] LABS: BASOPHILS % (AUTO) 0.6 %; EOSINOPHILS % (AUTO) 3.3 %; HCT - HEMATOCRIT 35.4 % (37.0-47.0); LYMPHOCYTES % (AUTO) 15.5 %; MEAN CORPUSCULAR HEMOGLOBIN 28.9 pg (27.0-31.0); MEAN CORPUSCULAR HGB CONC 31.1 g/dL (32.0-36.0); MEAN CORPUSCULAR VOLUME 93.2 fL (81.0-99.0); MEAN PLATELET VOLUME 10.8 fL (7.9-10.8); MONOCYTES % (AUTO) 9.6 %; NEUTROPHILS % (AUTO) 70.9 %; PLT - PLATELET COUNT 254 10^3/uL (130-450); RED CELL DISTRIBUTION WIDTH 14.1 % (12.0-15.0); WHITE BLOOD COUNT 6.9 x10^3/uL (4.8-10.8)
[2023-04-03 12:23] LABS: BAND NEUTROPHILS % (MANUAL) 3 %; EOSINOPHILS # (MANUAL) 0.2 10^3/uL (0-0.7); LYMPHOCYTES # (MANUAL) 1.2 10^3/uL (1.5-3.5); LYMPHOCYTES % (MANUAL) 16 %; MONOCYTES # (MANUAL) 0.5 10^3/uL (0.0-1.0); REACTIVE LYMPHS % (MANUAL) 1 %
[2023-04-03 12:24] LABS: DIFFERENTIAL COMMENT MANUAL DIFFERENTIAL; RBC MORPHOLOGY (MULTIPLE) 2+ ANISOCYTOSIS (NORMAL)
== END 2023-04-03 07:42 | disposition home or self-care (01) ==
LOC: LAB.N 07:41
PROVIDERS: ATTEND Family Medicine
DX: D72.829 Elevated white blood cell count, unspecified (principal)
CPT/HCPCS: 36415; 85025

== ENCOUNTER 2023-04-11 08:35 | Outpatient (CLI) | payer MEDICARE, MEDICAID ==
--- NOTE | 2023-04-11 12:09 | XRAY Report ---
PROCEDURE: Chest 2 View X-Ray INDICATIONS: LEUKOCYTOSIS TECHNIQUE: 2 views of the chest were acquired. COMPARISON: Chest x-ray 05/20/2022 FINDINGS: Surgical changes and devices: None. Lungs and pleura: Chronic interstitial changes are present. There is blunting of the costophrenic an gles unchanged likely related to scarring. Mediastinum: Mediastinal contours appear normal. Heart size is enlarged. Bones and chest wall: No suspicious bony lesions. Overlying soft tissues appear unremarkable. IMPRESSION: No acute cardiopulmonary process. Reviewed by: Ely Burrows MD on 04/11/2023 12:07 PM PDT Approved by: Ely Burrows MD on 04/11/2023 12:07 PM PDT Station ID: [id number]
== END 2023-04-11 08:36 | disposition home or self-care (01) ==
LOC: DI 08:35
PROVIDERS: ATTEND Family Medicine
DX: D72.829 Elevated white blood cell count, unspecified (principal)

== ENCOUNTER 2023-10-09 07:09 | Outpatient (CLI) | payer MEDICARE, MEDICAID ==
[2023-10-09 12:26] LABS: BASOPHILS # (AUTO) 0.1 10^3/uL (0.0-0.1); BASOPHILS % (AUTO) 0.7 %; EOSINOPHILS # (AUTO) 0.2 10^3/uL (0.0-0.7); EOSINOPHILS % (AUTO) 3.1 %; HGB - HEMOGLOBIN 11.6 g/dL (12.0-16.0); LYMPHOCYTES # (AUTO) 1.1 10^3/uL (1.5-3.5); LYMPHOCYTES % (AUTO) 16.6 %; MEAN CORPUSCULAR HEMOGLOBIN 28.8 pg (27.0-31.0); MEAN CORPUSCULAR HGB CONC 30.5 g/dL (32.0-36.0); MEAN CORPUSCULAR VOLUME 94.3 fL (81.0-99.0); MEAN PLATELET VOLUME 11.5 fL (7.9-10.8); MONOCYTES # (AUTO) 0.6 10^3/uL (0.0-1.0); MONOCYTES % (AUTO) 8.2 %; NEUTROPHILS # (AUTO) 4.9 10^3/uL (1.5-6.6); NEUTROPHILS % (AUTO) 71.3 %; PLT - PLATELET COUNT 219 10^3/uL (130-450); RED BLOOD COUNT 4.03 10^6/uL (4.20-5.40); RED CELL DISTRIBUTION WIDTH 13.7 % (12.0-15.0); WHITE BLOOD COUNT 6.8 x10^3/uL (4.8-10.8)
[2023-10-09 12:55] LABS: BUN - BLOOD UREA NITROGEN 28 mg/dL (6-20); CALCIUM 9.8 mg/dL (8.5-10.3); CARBON DIOXIDE - CO2 29 mmol/L (21-32); CHLORIDE 103 mmol/L (101-111); CHOL/HDL RATIO 2.2 (<4.4); CHOLESTEROL 139 mg/dL; CREATININE 1.3 mg/dL (0.6-1.3); GFR - MDRD 40 (>89); GLUCOSE 113 mg/dL (74-104); HDL CHOLESTEROL 64 mg/dL; LDL CHOLESTEROL,CALCULATED 54 mg/dL; LDL/HDL RATIO 0.8 (<4.4); POTASSIUM 4.1 mmol/L (3.5-4.5); SODIUM 137 mmol/L (135-145); TRIGLYCERIDES 103 mg/dL (48-352); VLDL CHOLESTEROL 21 mg/dL
[2023-10-09 13:26] LABS: ESTIMATED AVERAGE GLUCOSE 137 mg/dL (70-100); HEMOGLOBIN A1c% 6.4 % (4.27-6.07)
== END 2023-10-09 07:10 | disposition home or self-care (01) ==
LOC: LAB.N 07:09
PROVIDERS: ATTEND Physician Assistant Medical
DX: E11.9 Type 2 diabetes mellitus without complications (principal); E78.5 Hyperlipidemia, unspecified; D64.9 Anemia, unspecified
CPT/HCPCS: 36415; 80048; 80061; 83036; 83721; 85025

== ENCOUNTER 2023-11-18 11:32 | Outpatient (CLI) | payer MEDICARE, MEDICAID ==
[2023-11-18 18:20] LABS: ALBUMIN 4.8 g/dL (3.2-5.5)
== END 2023-11-18 11:33 | disposition home or self-care (01) ==
LOC: LAB.N 11:32
PROVIDERS: ATTEND Internal Medicine Rheumatology
DX: M06.9 Rheumatoid arthritis, unspecified (principal)
CPT/HCPCS: 36415; 82040; 84450; 84460; 85651

== ENCOUNTER 2023-12-17 10:48 | Emergency (ER) | payer MEDICARE, MEDICAID ==
[2023-12-17 11:12] VITALS: BP 152/59; O2SAT 99
--- NOTE | 2023-12-17 11:44 | ED Physician Documentation ---
History of Present Illness - Stated complaint Stated Complaint: SIDE PX,NUMB,SWEATING - Chief complaint Chief Complaint: Abd Pain - Additonal information Additional information: 74-year-old female with pulmonary hypertension, oxygen dependent, requiring lung transplant but patient declines, presents emergency department for multiple complaints. After much interviewing I am able to narrow down to the fact that patient feels like she is having a heart attack because she is having similar symptoms to what she had 5 years ago when she had heart attack. She says that she feels like she is sweating but she is not sweating she feels some p [id number] to her right shoulder but patient also states that she has felt this before and also feels this on her feet that comes and goes. She feels increased dyspnea on exertion and is also feeling some pressure and heaviness in her rectum. She has an appointment with her primary care provider next week and was trying to hold off until then but felt like with this dyspnea on exertion she could not wait any longer. She is overall very poor historian difficult gathering history. 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 HEENT: None Psych: Anxiety, Claustrophobia Musculoskeletal: Rheumatoid arthritis Derm: None - Past Surgical History Past Surgical History: Yes General: Colonoscopy Ortho: Knee replacement /CABLE LACER: Hysterectomy - Present Medications Home Medications: Ambulatory Orders Medication Instructions Recorded Confirmed Ferrous Gluconate 324 mg PO DAILY 12/24/18 01/11/21 Folic Acid 2 mg PO DAILY 12/24/18 01/11/21 Potassium Chloride 10 meq PO DAILYWM 12/24/18 01/11/21 Sitagliptin Phos/Metformin HCl 1 each PO DAILY 12/24/18 01/11/21 [Janumet Xr 100-1,000 mg Tablet] Omeprazole 20 mg PO DAILY 06/20/19 01/11/21 Rosuvastatin Calcium 40 mg PO DAILY 06/20/19 01/11/21 Ambrisentan 10 mg PO DAILY 01/11/21 01/11/21 Cyanocobalamin (Vitamin B-12) 2,500 mg PO DAILY 01/11/21 01/11/21 [Vitamin B-12 (500 mcg sublingual)] Fluticasone Propion/Salmeterol 1 inh INH DAILY 01/11/21 01/11/21 [Fluticasone-Salmeterol 500-50] Leflunomide [Arava] 20 mg PO DAILY 01/11/21 01/11/21 Magnesium Oxide [Mag-Oxide] 400 mg PO BID 01/11/21 01/11/21 Metoprolol Succinate [Toprol Xl] 12.5 mg PO BID 01/11/21 01/11/21 Selexipag [Uptravi] 800 mcg PO BID 01/11/21 01/11/21 Sildenafil Citrate [Sildenafil] 20 mg PO TID 01/11/21 01/11/21 Tiotropium [place] [Spiriva] 1 inh INH DAILY 01/11/21 01/11/21 Torsemide 60 mg PO DAILY 01/11/21 01/11/21 predniSONE [Prednisone] 5 mg PO DAILY 01/11/21 01/11/21 Acetaminophen [Acetaminophen Extra 500 mg PO QID PRN #40 tablet 05/14/22 Strength] Docusate Sodium 100Mg Capsule 100 mg PO DAILY #15 cap 05/14/22 [Colace 100Mg Capsule] dexAMETHasone [Decadron] 4 mg PO DAILY #5 tablet 05/14/22 oxyCODONE [Roxicodone] 5 mg PO Q8H PRN #12 tablet 05/14/22 Albuterol Sulf [Ventolin Hfa 1 - 2 puffs INH Q4HR PRN #1 ea 05/20/22 Inhaler] LORazepam [Ativan] 1 mg PO Q8H PRN #10 tablet 05/20/22 - Allergies Allergies/Adverse Reactions: Allergies Allergy/AdvReac Type Severity Reaction Status Date / Time No Known Drug Allergies Allergy Verified 12/17/23 11:10 - Social History Does the pt smoke?: No Smoking Status: Never smoker Does the pt drink ETOH?: No Does the pt have substance abuse?: No - Immunizations Immunizations are current?: No Immunizations: TDAP >10years/unknown - POLST Patient has POLST: No POLST Status: Full Code PD ED PE NORMAL - Vitals Vital signs reviewed: Yes - General General: Alert and oriented X 3, No acute distress, Well developed/nourished - HEENT HEENT: Atraumatic - Neck Neck: No JVD - Cardiac Cardiac: RRR, Other - Respiratory Respiratory: No respiratory distress, Clear bilaterally - Abdomen Abdomen: Normal bowel sounds, Soft, Non tender - Back Back: No CVA TTP - Extremities Extremities: No edema, No calf tenderness / cord - Neuro Neuro: Alert and oriented X 3, it 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 Relevant findings are: Rate: Rate (enter#) (90) Rhythm: NSR [place]: Normal Intervals: Normal [place] QRS: Normal Ischemia: Normal ST segments Computer interpretation: Agree with computer - Labs Labs: Laboratory Tests 12/17/23 12/17/23 12/17/23 12:01 12:01 12:01 WBC 8.8 RBC 4.16 L Hgb 12.0 Hct 39.4 MCV 94.7 MCH 28.8 MCHC 30.5 L RDW 13.7 Plt Count 266 MPV 10.1 Neut # (Auto) 7.3 H Lymph # (Auto) 0.7 L [place] # (Auto) 0.6 Eos # (Auto) 0.2 Baso # (Auto) 0.1 Absolute Nucleated RBC 0.00 Nucleated RBC % 0.0 D-Dimer < 200.0 L Sodium 139 Potassium 4.1 Chloride 100 L Carbon Dioxide 32 Anion Gap 7.0 BUN 29 H Creatinine 1.3 Estimated GFR (MDRD) 40 L Glucose 133 H Calcium 10.3 Total Bilirubin 0.5 AST 18 ALT 15 Alkaline Phosphatase 55 Troponin I High Sens 12.5 B-Natriuretic Peptide Total Protein 7.7 Albumin 4.8 Globulin 2.9 Albumin/Globulin Ratio 1.7 Lipase 44 Nasal Adenovirus (PCR) Nasal B. parapertussis DNA (PCR) Nasal Coronavir 229E PCR Nasal Coronavir HKU1 PCR Nasal Coronavir NL63 PCR Nasal Coronavir OC43 PCR Nasal Enterovir/Rhinovir PCR Nasal Influenza B PCR Nasal Influenza A PCR Nasal Parainfluen 1 PCR Nasal Parainfluen 2 PCR Nasal Parainfluen 3 PCR Nasal Parainfluen 4 PCR Nasal RSV (PCR) Nasal B.pertussis DNA PCR Nasal C.pneumoniae (PCR) [place] Human Metapneumo PCR Nasal M.pneumoniae (PCR) Nasal SARS-CoV-2 (PCR) 12/17/23 12/17/23 12:01 12:01 WBC RBC Hgb Hct MCV MCH MCHC RDW Plt Count MPV Neut # (Auto) Lymph # (Auto) [place] # (Auto) Eos # (Auto) Baso # (Auto) Absolute Nucleated RBC Nucleated RBC % D-Dimer Sodium Potassium Chloride Carbon Dioxide Anion Gap BUN Creatinine Estimated GFR (MDRD) Glucose Calcium Total Bilirubin AST ALT Alkaline Phosphatase Troponin I High Sens B-Natriuretic Peptide 40 Total Protein Albumin Globulin Albumin/Globulin Ratio Lipase Nasal Adenovirus (PCR) NOT DETECTED Nasal B. parapertussis DNA (PCR) NOT DETECTED Nasal Coronavir 229E PCR NOT DETECTED Nasal Coronavir HKU1 PCR NOT DETECTED Nasal Coronavir NL63 PCR NOT DETECTED Nasal Coronavir OC43 PCR NOT DETECTED Nasal Enterovir/Rhinovir PCR NOT DETECTED Nasal Influenza B PCR NOT DETECTED Nasal Influenza A PCR NOT DETECTED Nasal Parainfluen 1 PCR NOT DETECTED Nasal Parainfluen 2 PCR NOT DETECTED Nasal Parainfluen 3 PCR NOT DETECTED Nasal Parainfluen 4 PCR NOT DETECTED Nasal RSV (PCR) NOT DETECTED Nasal B.pertussis DNA PCR NOT DETECTED Nasal C.pneumoniae (PCR) NOT DETECTED [place] Human Metapneumo PCR NOT DETECTED Nasal M.pneumoniae (PCR) NOT DETECTED Nasal SARS-CoV-2 (PCR) NOT DETECTED - Rads (name of study) 2 view chest x-ray Relevant Findings:: Final report received, EMP independent interpretation of t est, Other (No cardiopulmonary abnormalities) PD Medical Decision Making - ED course ED course: 73-year-old female complex past medical history presents emergency department for concerns of repeat heart attack. Patient said that she had similar symptoms about 5 years ago when she did have an MRI. Labs are collected, D-dimer is wi thin normal limits, troponin is not elevated, no need to do delta troponins as her symptom onset has been going on for about 4 to 5 days now and she denies any Active chest pain. BUN today 29 this is actually significantly better in comparison to previous labs that patient has collected here, last couple BUN's have been within this range. GFR 40. Respiratory panel negative. EKG unremarkable. Heart score low. After this complete workup I do not believe that patient is experiencing any sort of ischemic cardiac event in regards to the poking sensation that she is feeling on her hands and right upper arm as well as sporadically on her stomach I believe this could be related to neuropathy but patient was also informed that she needs to follow-up with her primary care provider for further evaluation of this. She shows absolutely no stroke symptoms she is completely neurologically intact. She has multiple appointments with specialist coming up soon and is including her primary care provider, can dryer, hot car charger for further evaluation of her chronic conditions that I informed the patient to bring up this ER visit to them about. Patient understands she is safe for discharge at this time all questions answered and she and her daughter who is at bedside has been given ER return precautions. Departure - Departure Disposition: 01 Home, Self Care Clinical Impression: Neuropathy, Dyspnea on effort Condition: Good Instructions: ED Dyspnea Shortness of Breath Comments: Thank you for trusting us with your care, we have evaluated you for your shortness of breath on exertion and the prickling sensation that you are feeling in your right upper shoulder. Your EKG and chest x-ray are both normal as well as your labs not indicating any sort of signs or symptoms of heart attack. Is very importantly follow-up with your primary care provider for further evaluation of this and please come back to the emergency department if you are starting to experience any worsening shortness of breath, chest pain, or any other concerning symptoms. Forms: PCP List Discharge Date/Time: 12/17/23 13:17
[2023-12-17 12:12] LABS: BASOPHILS # (AUTO) 0.1 10^3/uL (0.0-0.1); BASOPHILS % (AUTO) 0.6 %; EOSINOPHILS # (AUTO) 0.2 10^3/uL (0.0-0.7); EOSINOPHILS % (AUTO) 1.8 %; HCT - HEMATOCRIT 39.4 % (37.0-47.0); LYMPHOCYTES # (AUTO) 0.7 10^3/uL (1.5-3.5); LYMPHOCYTES % (AUTO) 8.3 %; MEAN CORPUSCULAR HEMOGLOBIN 28.8 pg (27.0-31.0); MEAN CORPUSCULAR HGB CONC 30.5 g/dL (32.0-36.0); MEAN CORPUSCULAR VOLUME 94.7 fL (81.0-99.0); MEAN PLATELET VOLUME 10.1 fL (7.9-10.8); MONOCYTES # (AUTO) 0.6 10^3/uL (0.0-1.0); MONOCYTES % (AUTO) 6.8 %; NEUTROPHILS # (AUTO) 7.3 10^3/uL (1.5-6.6); NEUTROPHILS % (AUTO) 82.2 %; PLT - PLATELET COUNT 266 10^3/uL (130-450); RED BLOOD COUNT 4.16 10^6/uL (4.20-5.40); RED CELL DISTRIBUTION WIDTH 13.7 % (12.0-15.0); WHITE BLOOD COUNT 8.8 x10^3/uL (4.8-10.8)
--- NOTE | 2023-12-17 12:28 | XRAY Report ---
PROCEDURE: Chest 2V INDICATIONS: soa TECHNIQUE: 2 views of the chest were acquired. COMPARISON: 04/11/2023. FINDINGS: Surgical changes and devices: None. Lungs and pleura: No pleural effusions or pneumothorax. Chronic interstitial changes are redemonstra luis fernando. No focal pulmonary consolidations.. Mediastinum: Mediastinal contours appear normal. Heart size is normal. Bones and chest wall: No suspicious bony lesions. Overlying soft tissues appear unremarkable. IMPRESSION: No acute cardiopulmonary process. Reviewed by: Romulo Leblanc MD on 12/17/2023 12:26 PM PDT Approved by: Romulo Leblanc MD on 12/17/2023 12:26 PM PDT Station ID: [id number]
[2023-12-17 12:36] LABS: ALBUMIN 4.8 g/dL (3.2-5.5); ALBUMIN/GLOBULIN RATIO 1.7 (1.0-2.2); BILIRUBIN,TOTAL 0.5 mg/dL (0.2-1.0); CALCIUM 10.3 mg/dL (8.5-10.3); CREATININE 1.3 mg/dL (0.6-1.3); POTASSIUM 4.1 mmol/L (3.5-4.5); TOTAL PROTEIN 7.7 g/dL (6.4-8.9)
[2023-12-17 12:39] LABS: TROPONIN I HIGH SENSITIVITY 12.5 ng/L (2.3-14.8)
[2023-12-17 13:15] LABS: B. PARAPERTUSSIS- RESP PCR PAN NOT DETECTED; B. PERTUSSIS- RESP PCR PANEL NOT DETECTED; C. PNEUMONIAE- RESP PCR PANEL NOT DETECTED; CORONAVIRUS 229E-RESP PCR NOT DETECTED; CORONAVIRUS HKU1-RESP PCR NOT DETECTED; CORONAVIRUS NL63-RESP PCR NOT DETECTED; CORONAVIRUS OC43-RESP PCR NOT DETECTED; HUMAN METAPNEUMOVIRUS NOT DETECTED; INFLUENZA A- RESP PCR PANEL NOT DETECTED; INFLUENZA B - RESP PCR PANEL NOT DETECTED; M. PNEUMONIAE- RESP PCR PANEL NOT DETECTED; PARAINFLUENZA VIRUS 1 NOT DETECTED; PARAINFLUENZA VIRUS 2 NOT DETECTED; PARAINFLUENZA VIRUS 3 NOT DETECTED; PARAINFLUENZA VIRUS 4 NOT DETECTED; RHINOVIRUS/ENTEROVIRUS NOT DETECTED; RSV- RESP PCR PANEL NOT DETECTED; SARS-CoV-2 -RESP PCR PANEL NOT DETECTED
== END 2023-12-17 13:17 | disposition home or self-care (01) ==
LOC: ED 10:48
DX: E11.42 Type 2 diabetes mellitus with diabetic polyneuropathy (principal); R06.09 Other forms of dyspnea; I11.0 Hypertensive heart disease with heart failure; I50.9 Heart failure, unspecified; E78.00 Pure hypercholesterolemia, unspecified; J44.9 Chronic obstructive pulmonary disease, unspecified; M06.9 Rheumatoid arthritis, unspecified; Z79.899 Other long term (current) drug therapy; Z79.84 Long term (current) use of oral hypoglycemic drugs; I25.2 Old myocardial infarction
CPT/HCPCS: 36415; 80053; 83690; 83880; 84484; 85025; 85379; 87633; 93005; 99283; 99284

== ENCOUNTER 2024-01-09 10:37 | Outpatient (CLI) | payer MEDICARE, MEDICAID ==
--- NOTE | 2024-01-09 19:10 | DEXA Report ---
PROCEDURE: Dexa Spine and/or Hip INDICATIONS: OSTEOPOROSIS TECHNIQUE: Dual energy x-ray absorptiometry (DEXA) was performed in the regions detailed below. COMPARISON: 11/06/2021 FINDINGS: Lumbar Spine: Bone Mineral Density 0.959 g/cm/cm,T score -1.8. Previously -1.6 Left Femoral Neck: Bone Mineral Density 0.693 g/cm/cm, T score -2.5. Previously -2.3 Left Total Hip: Bone Mineral Density 0.769 g/cm/cm,T score -1.9. Previously -1.8 (T score greater or equal to -1.0: NORMAL) (T score from -1.1 to -2.4: OSTEOPENIA) (T score less than or equal to -2.5 to: OSTEOPOROSIS) IMPRESSION: Worsening osteoporosis Patients with diagnosis of osteoporosis or osteopenia should have regular bone mineral density assess ment. For those eligible for Medicare, routine testing is allowed once every 2 years. Testing frequ ency can be increased for patients who have rapidly progressing disease or for those who are receivin g medical therapy to restore bone mass. Reviewed by: Dionisio Alejandra MD on 01/09/2024 6:09 PM CAM Approved by: Dionisio Alejandra MD on 01/09/2024 6:09 PM CAM Station ID: [id number]
== END 2024-01-09 10:38 | disposition home or self-care (01) ==
LOC: DI 10:37
PROVIDERS: ATTEND Internal Medicine Rheumatology
DX: M81.0 Age-related osteoporosis without current pathological fracture (principal)

== ENCOUNTER 2024-01-24 11:16 | Emergency (ER) | payer MEDICARE, MEDICAID ==
[2024-01-24 11:27] VITALS: BP 170/86; O2SAT 98
--- NOTE | 2024-01-24 11:50 | ED Physician Documentation ---
PD HPI HEENT - Stated complaint Stated Complaint: COUGH, SINUS PX - Chief complaint Chief Complaint: Resp - History obtained from History obtained from: Patient - Additional information Additional information: She has a history of pulmonary hypertension and has been sick for about a week. It started with a cough and a scratchy throat which have resolved but now seems to have significant sinus pain and drainage. She has had not had fevers. No increased shortness of breath nor increased in her oxygen flow rate. PD PAST MEDICAL HISTORY - Past Medical History Past Medical History: Yes Cardiovascular: Congestive heart failure, Hypertension, High cholesterol Respiratory: COPD, Other Neuro: Other Endocrine/Autoimmune: Type 2 diabetes GI: GERD STEWARD/STEWARDESS THIRD: Other : Nocturia, Frequency HEENT: None Psych: Anxiety, Claustrophobia Musculoskeletal: Rheumatoid arthritis Derm: None - Past Surgical History Past Surgical History: Yes General: Colonoscopy Ortho: Knee replacement /STEWARD/STEWARDESS THIRD: Hysterectomy - Present Medications Home Medications: Ambulatory Orders Medication Instructions Recorded Confirmed Ferrous Gluconate 324 mg PO DAILY 12/24/18 01/11/21 Folic Acid 2 mg PO DAILY 12/24/18 01/11/21 Potassium Chloride 10 meq PO DAILYWM 12/24/18 01/11/21 Sitagliptin Phos/Metformin HCl 1 each PO DAILY 12/24/18 01/11/21 [Janumet Xr 100-1,000 mg Tablet] Omeprazole 20 mg PO DAILY 06/20/19 01/11/21 Rosuvastatin Calcium 40 mg PO DAILY 06/20/19 01/11/21 Ambrisentan 10 mg PO DAILY 01/11/21 01/11/21 Cyanocobalamin (Vitamin B-12) 2,500 mg PO DAILY 01/11/21 01/11/21 [Vitamin B-12 (500 mcg sublingual)] Fluticasone Propion/Salmeterol 1 inh INH DAILY 01/11/21 01/11/21 [Fluticasone-Salmeterol 500-50] Leflunomide [Arava] 20 mg PO DAILY 01/11/21 01/11/21 Magnesium Oxide [Mag-Oxide] 400 mg PO BID 01/11/21 01/11/21 Metoprolol Succinate [Toprol Xl] 12.5 mg PO BID 01/11/21 01/11/21 Selexipag [Uptravi] 800 mcg PO BID 01/11/21 01/11/21 Sildenafil Citrate [Sildenafil] 20 mg PO TID 01/11/21 01/11/21 Tiotropium Horatio [Spiriva] 1 inh INH DAILY 01/11/21 01/11/21 Torsemide 60 mg PO DAILY 01/11/21 01/11/21 predniSONE [Prednisone] 5 mg PO DAILY 01/11/21 01/11/21 Acetaminophen [Acetaminophen Extra 500 mg PO QID PRN #40 tablet 05/14/22 Strength] Docusate Sodium 100Mg Capsule 100 mg PO DAILY #15 cap 05/14/22 [Colace 100Mg Capsule] dexAMETHasone [Decadron] 4 mg PO DAILY #5 tablet 05/14/22 oxyCODONE [Roxicodone] 5 mg PO Q8H PRN #12 tablet 05/14/22 Albuterol Sulf [Ventolin Hfa 1 - 2 puffs INH Q4HR PRN #1 ea 05/20/22 Inhaler] LORazepam [Ativan] 1 mg PO Q8H PRN #10 tablet 05/20/22 Amox/Clav 875/125 [Augmentin] 1 each PO Q12H #14 tablet 01/24/24 - Allergies Allergies/Adverse Reactions: Allergies Allergy/AdvReac Type Severity Reaction Status Date / Time No Known Drug Allergies Allergy Verified 01/24/24 11:25 - Social History Does the pt smoke?: No Smoking Status: Never smoker Does the pt drink ETOH?: No Does the pt have substance abuse?: No - Immunizations Immunizations are current?: No Immunizations: TDAP >10years/unknown - POLST Patient has POLST: No POLST Status: Full Code PD ED PE NORMAL - Vitals Vital signs reviewed: Yes - General General: Alert and oriented X 3, No acute distress - HEENT HEENT: Pharynx benign, Other (Mild tenderness over both maxillary sinuses. She is on supplemental oxygen. TMs are normal.) - Respiratory Respiratory: No respiratory distress, Other (Mildly diminished throughout without focal findings. Nonlabored.) - Neuro Neuro: Alert and oriented X 3 Results - Vitals Vitals: Vital Signs - 24 hr 01/24/24 11:22 Temperature 36.7 C Heart Rate 99 Respiratory 22 Rate Blood Pressure 170/86 H O2 Saturation 98 Oxygen O2 Source Room air Oxygen Flow Rate 6 PD Medical Decision Making - ED course ED course: 73-year-old woman with significant comorbidities presents with sinus infection. Given her comorbidities it is very reasonable to trial antibiotics despite the fact that this may well be viral. Departure - Departure Disposition: 01 Home, Self Care Clinical Impression: Pulmonary HTN Sinusitis Qualifiers: Sinusitis location: maxillary Chronicity: acute Recurrence: not specified as recurrent Qualified Code(s): J01.00 - Acute maxillary sinusitis, unspecified Condition: Stable Instructions: ED Sinusitis Abx Tx Prescriptions: Amox/Clav 875/125 [Augmentin] 1 each PO Q12H #14 tablet Comments: I sent your prescription electronically to the [facility] in [place]. Start the antibiotics today. Follow-up with your cyber forensics analyst on Friday as scheduled. Make sure to take the antibiotic prescription with you so they know which you are on. Continue other regular medications.
== END 2024-01-24 11:53 | disposition home or self-care (01) ==
LOC: ED 11:16
DX: I27.20 Pulmonary hypertension, unspecified (principal); J01.00 Acute maxillary sinusitis, unspecified; I11.0 Hypertensive heart disease with heart failure; I50.9 Heart failure, unspecified; E78.00 Pure hypercholesterolemia, unspecified; J44.9 Chronic obstructive pulmonary disease, unspecified; E11.9 Type 2 diabetes mellitus without complications; Z99.81 Dependence on supplemental oxygen; Z79.899 Other long term (current) drug therapy; Z79.84 Long term (current) use of oral hypoglycemic drugs; Z79.51 Long term (current) use of inhaled steroids
CPT/HCPCS: 99282; 99283

== ENCOUNTER 2024-04-07 07:12 | Outpatient (CLI) | payer MEDICARE, MEDICAID ==
[2024-04-07 13:00] LABS: BASOPHILS % (AUTO) 0.6 %; EOSINOPHILS # (AUTO) 0.1 10^3/uL (0.0-0.7); EOSINOPHILS % (AUTO) 1.5 %; HCT - HEMATOCRIT 36.2 % (37.0-47.0); HGB - HEMOGLOBIN 11.2 g/dL (12.0-16.0); LYMPHOCYTES # (AUTO) 1.3 10^3/uL (1.5-3.5); LYMPHOCYTES % (AUTO) 19.6 %; MEAN CORPUSCULAR HEMOGLOBIN 29.2 pg (27.0-31.0); MEAN CORPUSCULAR HGB CONC 30.9 g/dL (32.0-36.0); MEAN CORPUSCULAR VOLUME 94.3 fL (81.0-99.0); MEAN PLATELET VOLUME 10.6 fL (7.9-10.8); MONOCYTES # (AUTO) 0.6 10^3/uL (0.0-1.0); MONOCYTES % (AUTO) 9.7 %; NEUTROPHILS # (AUTO) 4.5 10^3/uL (1.5-6.6); NEUTROPHILS % (AUTO) 68.3 %; PLT - PLATELET COUNT 263 10^3/uL (130-450); RED BLOOD COUNT 3.84 10^6/uL (4.20-5.40); RED CELL DISTRIBUTION WIDTH 13.5 % (12.0-15.0); WHITE BLOOD COUNT 6.6 x10^3/uL (4.8-10.8)
[2024-04-07 13:17] LABS: ALBUMIN 4.4 g/dL (3.2-5.5); ALBUMIN/GLOBULIN RATIO 1.6 (1.0-2.2); BILIRUBIN,TOTAL 0.5 mg/dL (0.2-1.0); CALCIUM 9.9 mg/dL (8.5-10.3); CREATININE 1.3 mg/dL (0.6-1.3); POTASSIUM 3.9 mmol/L (3.5-4.5); TOTAL PROTEIN 7.2 g/dL (6.4-8.9)
[2024-04-07 13:54] LABS: ESTIMATED AVERAGE GLUCOSE 123 mg/dL (70-100); HEMOGLOBIN A1c% 5.9 % (4.27-6.07)
== END 2024-04-07 07:13 | disposition home or self-care (01) ==
LOC: LAB.N 07:12
PROVIDERS: ATTEND Internal Medicine Rheumatology
DX: E11.9 Type 2 diabetes mellitus without complications (principal); M06.4 Inflammatory polyarthropathy
CPT/HCPCS: 36415; 80053; 83036; 85025; 85651